=== PATIENT | male | born 1950 | race African-American/Black ===

== ENCOUNTER 2024-08-20 14:28 | Outpatient (AMB) | payer OTHER, SELFPAY ==
--- NOTE | 2024-08-20 15:08 | A.OFFVIS_ITS ---
Intake Visit Reasons: BPH/ elevated PSA? Intake Note: Patient is present for BPH/ELEVATED PSA Urology Medication:NONE Antibiotic Allergy:NONE Blood Thinner:NONE TODAY'S PVR: [employer] Insurance Sales Required: No Allergies No Known Allergies Allergy (Verified 08/20/24 15:09) HPI Comments Details: Ramses is a pleasant male. He is seen for the following urologic conditions - BPH with elevated PSA Followed previously with urology Prior biopsy 2018 Prior MRI no suspicious lesions Known large prostate Urinary tract infection today in office Recent surgery trans-sphenoidal pituitary adenoma removal Prescribe antibiotic Four month follow-up repeat PSA and bladder ultrasound to document prostate size Review of Systems Const Denies chills and Denies fever(s) Card Reports no additional complaints and Denies syncope Resp Denies cough GI Denies abdominal pain and Denies heartburn Reports as per HPI and Denies change in libido Neuro Denies syncope Psych Denies change in libido Endo Denies change in libido Physical Exam Const General: cooperative, healthy appearing, comfortable and no acute distress Orientation/consciousness: patient oriented x3 HEENT Face and sinus: Yes normal facial exam Mouth: moist mucous membranes Neck Neck: Yes normal visual inspection, Yes full ROM and Yes trachea midline Chest Chest palpation & inspection: normal inspection of the chest Resp Effort & Inspection: normal respiratory effort, able to speak in complete sentences and no respiratory distress GI Inspection: Yes normal to inspection Back/Spine/Pelvis Cervical Spine: normal cervical lordosis Thoracic/Lumbar Spine: thoracic and lumbar spine normal to inspection Skin General skin exam: no rashes or lesions noted Neuro General: patient oriented x3, gait normal, tone normal and moves all extremities Extrem General: Yes normal to inspection and Yes capillary refill normal Office Procedures Post Void Residual Post Residual Void Post Void Residual (PVR): 18 48117-Qtso Void Residual by ultrasound Results AMB Urinalysis, Automated UA Leukoctes 125 Mark/uL Last Edit by SMA Manjula on 08/20/24 16:27 UA Nitrite Last Edit by SMA Manjula on 08/20/24 16:27 UA Urobilinogen 0.2 mg/dL Last Edit by SMA Manjula on 08/20/24 16:27 UA Protein 15 mg/dL Last Edit by SMA Manjula on 08/20/24 16:27 UA pH 6.0 Last Edit by SMA Manjula on 08/20/24 16:27 UA Blood 10 Tra/uL Last Edit by SMA Manjula on 08/20/24 16:27 UA Specific [place] 1.015 Last Edit by SMA Manjula on 08/20/24 16:27 UA Ketone Last Edit by SMA Manjula on 08/20/24 16:27 UA Bilirubin 0 mg/dL Last Edit by SMA Manjula on 08/20/24 16:27 UA Glucose 0 mg/dL Last Edit by SMA Manjula on 08/20/24 16:27 Results Reviewed Results Reviewed: Laboratory Last Values Urine pH (Auto) 6.0 08/20/24 16:25 Specific [place] (Auto) 1.015 08/20/24 16:25 Urine Protein (Auto) 15 mg/dL 08/20/24 16:25 Glucose (UA)(Auto) 0 mg/dL 08/20/24 16:25 Urine Blood (Auto) 10 Tra/uL 08/20/24 16:25 Urine Bilirubin (Auto) 0 mg/dL 08/20/24 16:25 Urine Urobilinogen (Auto) 0.2 mg/dL 08/20/24 16:25 Leukocyte Esterase (Auto) 125 Mark/uL 08/20/24 16:25 Assessment & Plan Assessment & Plan (1) Complicated urinary tract infection: Code(s): N39.0 - Urinary tract infection, site not specified Category: Medical (2) Elevated PSA: Code(s): R97.20 - Elevated prostate specific antigen [PSA] Category: Medical Plan Five days Bactrim Four month follow-up repeat PSA and bladder ultrasound Orders: Orders AMB Urinalysis Automated Today Z13.9 - Encounter for screening, unspecified Medications: New sulfamethoxazole-trimethoprim 800-160 mg (Bactrim DS) 1 tab PO BID 10 tabs 0RF 5 days N39.0 - Urinary tract infection, site not specified Patient Instructions: This note is constructed using voice recognition software. While every effort has been made to ensure accuracy metallurgical laboratory assistant errors may have been included. Imaging studies, laboratory and physical exam results were discussed and re viewed in detail. No major barriers to patient understanding were identified. An opportunity to ask questions regarding the treatment plan was provided. All questions were answered. The patient expressed understanding and agreement with the above treatment plan. The patient is aware they should contact our office by phone for worsening of their current condition or the appearance of new urologic symptoms. Compliance is encouraged with any medications and followup testing that is ordered. It is a privilege to participate in the urologic care of your patient. If you have any questions or concerns regarding treatment for the above conditions, or other urologic issues, please do not hesitate to contact me. The office telephone contact is [phone]. Sincerely, Dr Andres Farfan MD, [facility] - Urology Compassionate Specialist Care for the Genitourinary System Coding Level of Care Code New Pt Level 4 (87539) Diagnoses Complicated urinary tract infection N39.0 Elevated PSA R97.20 CPT Codes Post Residual Void - PVR CPT Code: 77291-Bqvr Void Residual by ultrasound ([id number])
== END 2024-08-20 15:44 | disposition home or self-care (01) ==
LOC: HO.HUSH 14:29
PROVIDERS: Visit Provider Urology
DX: N39.0 Urinary tract infection, site not specified (principal); R97.20 Elevated prostate specific antigen [PSA]; Z13.9 Encounter for screening, unspecified
CPT/HCPCS: 99204

== ENCOUNTER → 2024-08-20 14:28 | Outpatient (BNVA) | payer MEDICARE, OTHER, SELFPAY | PROVIDERS: Visit Provider Urology | DX: N40.0 Benign prostatic hyperplasia without lower urinary tract symptoms (principal); R97.20 Elevated prostate specific antigen [PSA]; N39.0 Urinary tract infection, site not specified | CPT/HCPCS: 51798; 81003 ==

== ENCOUNTER 2024-12-17 10:26 | Outpatient (REF) | payer MEDICARE, OTHER, SELFPAY ==
--- OUTSIDE RECORDS SUMMARY | 2024-12-15 14:17 | XMS_ITS | Encounter Summary ---
Author Organization [facility] Address [address] [place] [address] Care Team Providers Care Oil Heater Installer Name Role Phone Physician, No Pcp Primary Care Provider Unavaila ble Reason for Referral * Imaging (Routine) - Authorized Specialty Diagnoses / Procedures Referred By Coleen t Referred To Contact Radiology Diagnoses Elevated alkaline phosphatase level Procedures US Abdomen Limited Sara Montes De Oca PA [address] [place] [address] Phone: tel: fax: [address] [address] Phone: tel: Referral ID Status Reason Start Date Expiration Date V isits Requested Visits Authorized [id number] Authorized 11/28/2024 11/28/2025 1 1 Reason for Visit * Imaging (Routine) - Authorized Specialty Diagnoses / Procedures Referred By Contac t Referred To Contact Radiology Diagnoses Elevated alkaline phosphatase level Procedures US Abdomen Limited Sara Montes De Oca PA [address] [place] [address] Phone: tel: fax: [address] [address] Phone: tel: Referral ID Status Reason Start Date Expiration Date V isits Requested Visits Authorized [id number] Authorized 11/28/2024 11/28/2025 1 1 Encounter Details Date Type Department Care Team (Latest Contact Info) Description 12/15/2024 2:17 PM EDT - 12/15/2024 11:59 PM EDT Hospital Encounter [facility] Ultrasound [address] [place] [address] Elevated alkaline phosphatase level Discharge Disposition: Home or Self Care Social History Tobacco Use Types Packs/Day Years Used Date Smoking Tobacco: Never Smokeless Tobacco: Never Alcohol Use Standard Drinks/Week Comments Yes 0 (1 standard drink = 0.6 oz pur e alcohol) OCCASIONAL Housing Instability Answer Date Recorde d Are you worried that in the next 2 months you may not have stable housing? No 04/29/2024 Food Access & Nutrition Answer Date Rec orded Do you have access to a vari ety of food including fruits and vegetables? Yes 04/29/2024 Access to Healthcare Answer Date Record ed Within the last 3 months, shikha bajwa many times did you visit the emergency department for your medical care? 0 04/29/2024 Health Literacy Answer Date Recorded How often do you need to hav e someone help you when you read instructions, pamphlets, or other written material from your doctor or pharmacy? Never 04/29/2024 Caregiver: How often do you need to have someone help you when you read instructions, pamphlets, or other written material from your doctor or pharmacy? Not on file 04/29/2024 Financial Risk Answer Date Recorded How hard is it for you to pa y for the very basics like food, housing, medical care, and air conditioning / heating? Not very hard 04/29/2024 Transportation Answer Date Recorded Has the lack of transportati on kept you from meetings, work, or from getting things needed for daily living? No Has the lack of transportati on kept you from medical appointments or from getting medications? No 04/29/2024 Social Isolation Answer Date Recorded How often do you feel lonely or isolated from th ose around you? Never 04/29/2024 Food Risk Answer Date Recorded Within the past 12 months we worried whether our food would run out before we got money to buy more. Never true 04/29/2024 Within the past 12 months th e food we bought just didn't last and we didn't have money to get more. Never true 04/29/2024 Dependent Care Answer Date Recorded Do you need help finding or paying for care for your loved ones. For example, early childhood education coordinator or elderly care for an older adult? No 04/29/2024 Education Answer Date Recorded Do you think completing more education or training, like finishing a GED, going to college, or learning a trade, would be helpful for you? No 04/29/2024 Employment and Income Answer Date Recor ded During the last four weeks, have you been actively looking for work? No 04/29/2024 Living Situation Answer Date Recorded What is your living situation? Unrecognized valu e 04/29/2024 Interpersonal Safety Answer Date Record ed Physical Abuse Unrecognized value 08/05/2024 Verbal Abuse Unrecognized value 08/05/2024 Sex and Gender Information Value Date Recorded Sex Assigned at Male 04/30/2024 6:15 AM EST Legal Sex Male 10:04 AM EST Gender Identity Male 04/30/2024 6:15 AM EST Sexual Orientation Straight 04/30/2024 6: 15 AM EST documented as of this encounter Functional Status * Are you deaf or do you have serious difficulty hearing? Answer Date of Assessment Author No 04/29/2024 12:18 PM Osiel Kraft RN * Are you blind or do you have serious difficulty seeing, even when wearing glasses? Answer Date of Assessment Author No 04/29/2024 12:18 PM Osiel Kraft RN * Do you have serious difficulty walking or climbing stairs? Answer Date of Assessment Author No 04/29/2024 12:18 PM Osiel Kraft RN * Do you have serious difficulty dressing or bathing? Answer Date of Assessment Author No 04/29/2024 12:18 PM Osiel Kraft RN * Because of a physical, mental, or emotional condition, do you have serious difficulty doing errandsalone such as visiting the doctor? Answer Date of Assessment Author No 04/29/2024 12:18 PM Osiel Kraft RN documented as of this encounter Mental Status * Because of a physical, mental, or emotional condition, do you have serious difficulty concentrating, remembering, or making decisions? (5 years old or older) Answer Entry Date Author No 04/29/2024 12:18 PM Osiel Kraft RN documented in this encounter Medications at Time of Discharge amLODIPine (NORVASC) 10 mg tablet Take 1 tablet (10 mg total) by mouth 1 (one) time each day. 90 tablet 1 07/08/2024 atorvastatin (LIPITOR) 40 mg tablet Take 1 tablet (40 mg total) by mouth 1 (one) time each day. 90 tablet 1 06/12/2024 levETIRAcetam (KEPPRA) 500 mg tablet Take 1 tablet (500 mg total) by mouth 2 (two) times a day. 60 each 2 06/12/2024 multivitamin tablet Take 1 tablet by mouth 1 (one) time each day. oxyCODONE (ROXICODONE) 5 mg immediate release tablet Take 1 tablet (5 mg total) by mouth every 4 (four) hours if needed for moderate pain. Max Daily Amount: 30 mg 20 tablet 08/07/2024 senna-docusate (PERICOLACE) 8.6-50 mg per tablet Take 1 tablet by mouth at bedtime. 30 each 11 08/07/2024 08/07/2025 documented as of this encounter Discharge Disposition Disposition Code Departure Means Destination Home or Self Care documented in this encounter Plan of Treatment Upcoming Encounters Date Type Department Care Team (Late st Contact Info) Description 12/22/2024 2:15 PM EDT Office Visit [facility] Hematology Oncology [address] [place] [id number] Charito Monzon PA [address] [place] [address] Pending Results Name Type Priority Associated Diagnoses Date /Time US Abdomen Limited Imaging Routine Elevated alkaline phosphatase level 12/15/2024 2:51 PM EDT Scheduled Orders Name Type Priority Associated Diagnoses Orde r Schedule US Abdomen Limited Imaging Routine Elevated alkaline phosphatase level Once for 1 Occurrences starting 12/15/2024 until 12/15/2024 documented as of this encounter Visit Diagnoses Diagnosis Elevated alkaline phosphatase level documented in this encounter Care Teams Oil Heater Installer Relationship Specialty Start Date End Date Physician, No Pcp PCP - General 12/11/24 documented as of this encounter
--- NOTE | ~2024-12-17 | US_ITS ---
CLINICAL HISTORY: R97.20 - Elevated prostate specific antigen [PSA] Exam: Male pelvic ultrasound Comparison: None Findings: Urinary bladder is underdistended, diffuse bladder wall thickening, no calculus or focal lesion, prevoid bladder volume 142 mL, postvoid residual volume 92 mL, left ureteral jet is seen, right ureteral jet is not visualized. Prostate is enlarged, measures 7.9 x 7.5 x 7.8 cm, 242 mL, heterogeneous echogenicity and echotexture, 2 hypoechoic solid appearing masses including 1.4 x 0.9 x 1.2 cm in the left anterior midgland, 1.7 x 1.8 x 1.5 cm in the right posterior base to midgland junction, no apparent intralesional vascular flow. Impression: 1. Marked prostatomegaly, 2 solid masses are indeterminate, malignancy needs to be excluded, recommend clinical correlation and urology follow-up, prostate MRI can be helpful for further evaluation. 2. Incomplete bladder emptying with large postvoid residual volume. This document has been electronically signed by: Sanjana Landin MD on 12/17/2024 14:45:44
--- OUTSIDE RECORDS SUMMARY | 2024-12-17 12:01 | XMS_ITS | Clinical Summary ---
Author Organization [facility] Address [address] [place] [address] Phone Care Team Providers Care Receiving Tank Operator Name Role Phone Luis Monzon MD Primary Care Provider Unav ailable Social History Tobacco Use Types Packs/Day Years Used Date Smoking Tobacco: Never Assessed Education Answer Date Recorded Are you interested in more education? Not on lizzy e 08/13/2024 Are you concerned about learning? Not on file 08/13/2024 No 08/13/2024 No 08/13/2024 Digital Access Answer Date Recorded No 08/13/2024 No 08/13/2024 Reliable internet access at home? Not on file 08/13/2024 Device with a working camera? Not on file Sex and Gender Information Value Date Recorded Sex Assigned at Not on file Legal Sex Male 6:20 PM EST Gender Identity Not on file Sexual Orientation Not on file Plan of Treatment Not on file Medical Devices Not on file Insurance [employer] EN[employer]ANCE SUPPLEMENT MEDICARE PART A & B [employer] SUPPLEMENT MEDICARE PART A & B [facility] MEDICARE ENHANCE SUPPLEMENT MEDICARE PART A & B [facility] MEDICARE ENHANCE SUPPLEMENT MEDICARE PART A & B Member Subscriber Plan / Payer (Ef fective 2024-Present) Name:Ramses Reed Member ID:[id number] Relation to Subscriber:Self Name:Ramses Reed Subscriber ID:[id number] Payer ID:[id number] Group ID:Not on file Type:Medicare Address: [facility] [employer] [facility] [address] [place] [address] [facility] MEDICARE ENHANCE SUPPLEMENT MEDICARE PART A & B [facility] MEDICARE ENHANCE SUPPLEMENT MEDICARE PART A & B [employer] ENHANCE SUPPLEMENT MEDICARE PART A & B [facility] MEDICARE ENHANCE SUPPLEMENT MEDICARE PART A & B [facility] MEDICARE ENHANCE SUPPLEMENT MEDICARE PART A & B Care Teams Receiving Tank Operator Relationship Specialty Start Date End Date Luis Monzon MD PCP - General 09/16/13 Additional Source Comments The information contained in this document represents components of the legal health record. It is not the complete legal health record.[facility]
--- OUTSIDE RECORDS SUMMARY | 2024-12-17 12:01 | XMS_ITS | Clinical Summary ---
Author Organization [facility] Address [address] [place] [address] Phone Care Team Providers Care Food Stand Manager Name Role Phone Physician, No Pcp Primary Care Provider Unavaila ble Allergies No known active allergies Medications levETIRAcetam (KEPPRA) 500 mg tablet Take 1 tablet (500 mg total) by mouth 2 (two) times a day. 60 each 2 5 Active Additional Information Patient not taking.Reported on 12/08/2024 atorvastatin (LIPITOR) 40 mg tablet Take 1 tablet (40 mg total) by mouth 1 (one) time each day. 90 tablet 1 5 Active Additional Information Patient not taking.Reported on 12/08/2024 multivitamin tablet Take 1 tablet by mouth 1 (one) time each day. Active amLODIPine (NORVASC) 10 mg tablet Take 1 tablet (10 mg total) by mouth 1 (one) time each day. 90 tablet 1 Active oxyCODONE (ROXICODONE) 5 mg immediate release tablet Take 1 tablet (5 mg total) by mouth every 4 (four) hours if needed for moderate pain. Max Daily Amount: 30 mg 20 tablet Active Additional Information Patient not taking.Reported on 12/08/2024 senna-docusate (PERICOLACE) 8.6-50 mg per tablet Take 1 tablet by mouth at bedtime. 30 each 11 5 08/08/19 26 Active Additional Information Patient not taking.Reported on 12/08/2024 Active Problems Problem Noted Date Diagnosed Date Chronic rhinitis 09/04/2024 Pituitary adenoma ([facility] V24, [facility] V28) Assessment & Plan (08/15/2024 4:27 PM EDT): Mr. Lr is close to 2 weeks status post transsphenoidal debulking of a pituitary tumor. He denies any visual changes, dizziness, or headaches. His postoperative MRI did show some residual tumor. Since he is not symptomatic we will not consider repeat surgery at this time. Dr. Overton said that it is likely that the tumor will continue to shrink postoperatively. We will schedule him for an MRI of the brain with and without contrast sella protocol in approximately 6 months. Knows to call in the meantime if he is having any issues. Deviated nasal septum 07/01/2024 Pituitary macroadenoma with extrasellar extension ([facility] V24, [facility] V28) 05/02/2024 Assessment & Plan (08/18/2024 1:55 PM EDT): He is doing well postsurgery. Followed up with neurosurgery. They are planning on repeating an MRI in 6 months time. He will continue Keppra for now and I have advised to follow-up with neurology regarding the continuation of this medication. Will refer him to endocrinology to have any hormonal imbalances postsurgery. Orders: Ambulatory referral to Endocrinology; Future Assessment & Plan (07/14/2024 12:29 PM EDT): Scheduled undergo surgery in 08/05/2024. He is cleared from surgical point of view. Currently has not had any syncope or seizures. Assessment & Plan (06/30/2024 2:26 PM EDT): During recent hospitalization patient was found to have a pituitary macroadenoma. He is planned to have surgery on this on August 05. Denies any cardiac symptoms and does not require any cardiac testing. Patient's cardiac problems are optimized on current medical therapy. Patient's activity level represents greater than 4 METS. Patient does not require any further testing at this time. Using the [facility] cardiac risk assessment patient is at a 0.3% risk for perioperative myocardial infarction or cardiac arrest. Patient is at acceptable risk for the proposed surgical procedure. Assessment & Plan (05/15/2024 1:52 PM EST): Patient followed up with neurosurgery and will be scheduled to undergo transsphenoidal resection. I have referred the patient to cardiology for his bradycardia and orthostatic hypotension of the hospital. Heart rate and blood pressure stable today. Continue Keppra 5 mg twice a day. Orders: Ambulatory referral to Cardiology; Future Assessment & Plan (05/08/2024 3:45 PM EST): I reviewed the imaging with the patient and his explaining the extent of the tumor and the intention to proceed with resection via transsphenoidal approach. We discussed the details, risks, benefits and anticipated postoperative course which will include staying in the ICU to monitor for endocrine dysfunction. We further discussed the possibility of radiation treatment for any residual as it does appear to just invade the wall of the left cavernous sinus. We would monitor that with annual MRIs looking for growth. He is scheduled to have a formal visual field test at ophthalmology tomorrow and we will coordinate with Dr. Gillette of ENT to find a surgery date. Laceration of eyebrow and forehead 05/02/2024 Assessment & Plan (05/08/2024 3:39 PM EST): The thin laceration through his right eyebrow appears well-healed. 2 stitches were removed without difficulty. Influenza A 05/02/2024 Assessment & Plan (05/15/2024 1:52 PM EST): Recovering. Guaifenesin with codeine provided to help him with his cough. Visual field contraction, bilateral 05/02/2024 Syncope 04/29/2024 Assessment & Plan (06/30/2024 2:26 PM EDT): Patient had an episode of syncope in the setting of URI, influenza and urinary tract infection. He was found to have orthostatic hypotension. He was treated in the hospital with IV fluids. Patient denies any further issues with syncope. He does not present with any evidence of orthostasis. He does not require any ongoing cardiac workup. EKG is stable. Benign prostatic hyperplasia without lower urinary tract symptoms 03/19/2024 Hyperlipidemia, unspecified 03/19/2024 Essential (primary) hypertension 03/19/2024 HTN (hypertension) 10/01/2018 Assessment & Plan (08/18/2024 1:55 PM EDT): He will continue his current regimen of amlodipine 10 mg daily for blood pressure under control. Assessment & Plan (07/14/2024 12:29 PM EDT): Blood pressure stable. Follow sodium diet. Continue encouragement of amlodipine. Hyperlipidemia 01/11/2011 Assessment & Plan (08/18/2024 1:55 PM EDT): Follow low-cholesterol diet. Continue atorvastatin. Will monitor LFTs and lipid panel. Orders: Comprehensive metabolic panel; Future Lipid panel with reflex to direct LDL; Future Assessment & Plan (07/14/2024 12:29 PM EDT): Patient follow low-cholesterol diet. Continue comanagement of atorvastatin. Benign prostatic hyperplasia 03/10/2008 Overview (05/15/2024): Urology (06/13/17): his right scrotal symptoms resolution, it most likely orchitis. Repeat scrotal US. With prostate MRI showing significant enlarged prostate and rising PSA, would repeat prostate biopsy. Seen by Dr Maldonado Urology (05/31/17): persistent orchitis, bactrim ds prescribed for 2 weeks. For elev PSA, pelvic MRI discussed. Recommend repeat prostate bx , so far negativve biopsies in the past. Mcnally; elevated PSA; biopsied multiple times negative Assessment & Plan (05/15/2024 1:52 PM EST): Referral to urology placed for his BPH. Orders: Ambulatory referral to Urology; Future Encounters Date Type Department Care Team Description 12/15/2024 2:17 PM EDT - 12/15/2024 11:59 PM EDT Hospital Encounter [facility] Ultrasound [address] [place] [address] Elevated alkaline phosphatase level Discharge Disposition: Home or Self Care 12/08/2024 1:45 PM EDT Lab Draw Station - [facility] [address] [phone] Encounter for screening for other viral diseases; Anemia, unspecified type 12/08/2024 1:00 PM EDT Office Visit [facility] Hematology Oncology [address] [place] [phone] Charito Monzon PA Anemia, unspecified type (Primary Dx); Elevated liver enzymes; Benign prostatic hyperplasia, unspecified whether lower urinary tract symptoms present 12/04/2024 Telephone Gastroenterology - [address] [place] [phone] Melissa Alcaraz [place] 11/28/2024 10:35 AM EDT Lab Draw Station - [address] [place] [phone] Elevated alkaline phosphatase level; Encounter for screening for other viral diseases; Contact with and (suspected) exposure to viral hepatitis 11/28/2024 9:40 AM EDT Consult Gastroenterology - [address] [place] [phone] Sara Montes De Oca PA Elevated alkaline phosphatase level; Encounter for screening for other viral diseases; Contact with and (suspected) exposure to viral hepatitis from Last 3 Months Immunizations Immunization Administration Dates Next Due Cholera Vaccine, Unspecified Formulation 05/01/1990 Hepatitis A Adult (Havrix; V aqta) 19yo and older 06/29/2010,10/26/2009 IPV Inactivated polio (Ipol) 6wks and older 10/26/2009 Influenza trivalent, 0.5mL ( Fluzone High-dose) 65yo and older 12/01/2022,01/07/2019,02/01/2018,12/28 Influenza trivalent, with pr eservative (Fluzone; Afluria) 6mo and older 02/03/2016,12/18/2014,12/28/2011,12/27,04/01/2010,03/10/2008 Influenza, Unspecified 12/29/2020 Meningococcal Polysaccharide 06/09/1997 Pfizer SARS-CoV-2 COVID-19, mRNA, LNP-S, preservative free 04/06/2021,07/06/2020 Pneumococcal conjugate 13 va lent (Prevnar 13, PCV13) 2mo and older 09/05/2021 Pneumococcal conjugate 20 va lent (Prevnar 20, PCV 20) 2mo and older 09/22/2022 Tdap Tetanus diptheria acell ular pertussis (Boostrix; Adacel) 7yo and older 11/13/2013,01/11/2011 Typhoid VICPS (Typhim Vi) 2y o and older 11/13/2013,10/30/2011,10/26/2009 Yellow Fever (YF-VAX) 9mo and older 10/26/2009,0 06/09/1997 Surgical History Surgery Date Site/Laterality Comments OTHER SURGICAL HISTORY 03/03/08 PROCEDURE: CAT SCAN OF HEAD/BRAIN NO CONTRAST; COMMENT: [facility]; neg COLONOSCOPY 02/23/2011 PROCEDURE: [place] COLONOSCOPY FLX DX W/COLLJ SPEC WHEN PFRMD; COMMENT: negative but suboptimal SHOULDER SURGERY 2004 PROCEDURE: HISTORICAL SHOULDER SURGERY; COMMENT: dislocation Left shoulder ROTATOR CUFF REPAIR Bilateral APPENDECTOMY COLONOSCOPY 03/19/2021 - 03/18/2022 Dr. Boggs, 10-year recall PITUITARY EXCISION 08/05/2024 Medical History Medical History Date Comments Syncope and collapse 03/10/2008 DX:Syncope and collapse BPH (benign prostatic hypertrophy) 03/10/2008 DX:BPH (benign prostatic hypertrophy); COMMENT: [place]; elevated PSA; biopsied multiple times negative Other and unspecified hyperlipidemia 01/11/2011 DX:Other and unspecified hyperlipidemia HTN (hypertension) 10/01/2018 DX:HTN (hyper tension) Family History Medical History Relation Name Comments Asthma Brother Other: neg Other Colon cancer Neg Hx Relation Name Status Comments Brother Other Social History Tobacco Use Types Packs/Day Years Used Date Smoking Tobacco: Never Smokeless Tobacco: Never Tobacco Cessation:Counseling Given: Not Answered Alcohol Use Standard Drinks/Week Comments Yes 0 [...] Record ed Within the last 3 months, ho w many times did you visit the emergency [...] care for your loved ones. For example, child care nurse or elderly care for an older adult? [...] Orientation Straight 04/30/2024 6: 15 AM EST Obstetrics History Last Filed Vital Signs Vital Sign Reading Time Taken Comments Blood Pressure 137/67 12/08/2024 12:45 PM EDT Pulse 56 12/08/2024 12:45 PM EDT Temperature 36.4 C (97.6 F) 12/08/2024 12:45 PM EDT Respiratory Rate 15 08/07/2024 9:00 AM EDT Oxygen Saturation 100% 12/08/2024 12:45 PM EDT Inhaled Oxygen Concentration - - Weight 77.8 kg (171 lb 9.6 oz) 12/08/2024 12:45 PM EDT Height 177.8 cm (5' 10 ) 12/08/2024 12:45 PM EDT Body Mass Index 24.62 12/08/2024 12:45 PM EDT Plan of Treatment Upcoming Encounters Date Type Department Care Team (Late st Contact Info) Description 12/22/2024 2:15 PM EDT Office Visit [facility] Hematology Oncology [address] [place] [phone] Charito Monzon PA [address] [place] [address] Health Maintenance Due Date Last Done Comments Colorectal Cancer Screening: Colonoscopy 1950 Zoster Vaccines (1 of 2) 11/03/2001 IPV Vaccines (2 of 3 - Adult catch-up series) 11/23/2009 10/26/2009 Medicare Annual Wellness Visit 02/14/2022 DTaP,Tdap,and Td Vaccines (3 - Td or Tdap) 11/14/2023 11/13/2013, 01/11/2011 Depression Screening 03/19/2024 COVID-19 Vaccine ( season) 2024 04/06/2021, 07/06/2020, 06/09/2020 Influenza Vaccine (#1) 2024 , 12/29/2020, 01/07/2019, Additional history exists Social Influencers of Health Screening 04/29/2025 04/29/2024 Falls Risk Assessment 08/07/2025 08/07/2024 Hypertension/CHF/CAD Annual BMP Blood Test 12/08/2025 12/08/2024, 09/29/2024, 08/07/2024, Additional history exists RSV Immunization Adult Patients (1 - 1-dose 75+ series) 11/03/2026 Cholesterol Screening (Lipid Panel) 09/29/2029 09/29/2024, 09/22/2022 Meningococcal ACWY Vaccine Aged Out 06/09/1997 N o longer eligible based on patient's age to complete this topic Hepatitis A Vaccines Aged Out 06/29/2010, 10/27/19 10 No longer eligible based on patient's age to complete this topic Pneumococcal Vaccine: 50+ Years Completed 09/22/2022, 09/05/2021 Hepatitis C Screening Completed 11/28/2024, 018 HIB Vaccines Aged Out No longer eligi ble based on patient's age to complete this topic HPV Vaccines Aged Out No longer eligi ble based on patient's age to complete this topic Hepatitis B Vaccines Aged Out No long er eligible based on patient's age to complete this topic MMR Vaccines Aged Out No longer eligi ble based on patient's age to complete this topic Meningococcal B Vaccine Aged Out No l onger eligible based on patient's age to complete this topic RSV Immunization Patients Under 20 months Aged Out No longer eligible based on patient's age to complete this topic Varicella Vaccines Aged Out No longer eligible based on patient's age to complete this topic Medical Devices Implanted Type Area Maternity Nurse Device Identifier Shelf Expiration Date Model / Serial / Lot Kit Surgiflo W 2000 Units Ster Lyo - Sna - [id number] Implanted:Qty: 1 on 08/05/2024 by Mady Overton MD at [facility] Hemostasis N/A: Nose [employer] [id number] 12/16/2025 2994 / NA / [id number] Kit Surgiflo W 2000 Units Ster Lyo - Sna - [id number] Implanted:Qty: 1 on 08/05/2024 by Mady Overton MD at [facility] Hemostasis N/A: Nose [employer]AC[employer] [id number] 12/16/2025 2994 / NA / [id number] Duraseal Exact Spine Sealant 5ml W Applicator - Sna - [id number] Implanted:Qty: 1 on 08/05/2024 by Mady Overton MD at [facility] Hemostasis N/A: Nose [employer] 02/15/2025 [id number] / [id number] / [id number] Procedures Procedure Name Priority Date/Time Associated Diagnosis Comments WI PROTEIN ELECTROPHORETIC FRACTIONATION & QUANTITATION SERUM Routine 12/08/2024 1:41 PM EDT Anemia, unspecified type PROTEIN, TOTAL Routine 12/08/2024 1:41 PM EDT Anemia, unspecified type CBC WITH AUTO DIFFERENTIAL Routine 12/08/2024 1:41 PM EDT Anemia, unspecified type THYROID STIMULATING HORMONE WITH REFLEX TO FREE T4 AND FREE T3 Routine 12/08/2024 1:41 PM EDT Anemia, unspecified type RETICULOCYTE COUNT Routine 12/08/2024 1: 41 PM EDT Anemia, unspecified type PROTEIN ELECTROPHORESIS, SERUM Routine 12/08/2024 1:41 PM EDT Anemia, unspecified type LACTATE DEHYDROGENASE Routine 12/08/2024 1:41 PM EDT Anemia, unspecified type KAPPA-LAMBDA QUANTITATIVE FREE LIGHT CHAINS Routine 12/08/2024 1:41 PM EDT Anemia, unspecified type HAPTOGLOBIN Routine 12/08/2024 1:41 PM EDT Anemia, unspecified type ERYTHROPOIETIN Routine 12/08/2024 1:41 PM EDT Anemia, unspecified type CBC AND DIFFERENTIAL Routine 12/08/2024 1:41 PM EDT Anemia, unspecified type COMPREHENSIVE METABOLIC PANEL Routine 12/08/2024 1:41 PM EDT Anemia, unspecified type HEPATITIS B VIRUS PCR QUANTITATIVE Routine 12/08/2024 1:41 PM EDT Encounter for screening for other viral diseases HEPATITIS A ANTIBODY IGM Routine 025 10:42 AM EDT Elevated alkaline phosphatase level AST, ALT, BILIRUBIN ELR STATE REPORTABLES Routine 11/28/2024 10:42 AM EDT Elevated alkaline phosphatase level Encounter for screening for other viral diseases Contact with and (suspected) exposure to viral hepatitis ANTIMITOCHONDRIAL ANTIBODY Routine 11/28/2024 10:42 AM EDT Elevated alkaline phosphatase level HEPATITIS A ANTIBODY TOTAL WITH REFLEX IGM Routine 11/28/2024 10:42 AM EDT Elevated alkaline phosphatase level HEPATITIS C VIRUS QUANTITATIVE PCR Routine 11/28/2024 10:42 AM EDT Elevated alkaline phosphatase level HEPATITIS B SCREENING PANEL Routine 11/28/2024 10:42 AM EDT Elevated alkaline phosphatase level Encounter for screening for other viral diseases Contact with and (suspected) exposure to viral hepatitis GAMMA GLUTAMYL TRANSFERASE Routine 11/28/2024 10:42 AM EDT Elevated alkaline phosphatase level HEPATIC FUNCTION PANEL Routine 5 10:42 AM EDT Elevated alkaline phosphatase level CBC WITH AUTO DIFFERENTIAL Routine 09/29/2024 9:51 AM EDT Anemia, unspecified type CBC AND DIFFERENTIAL Routine 09/29/2024 9:51 AM EDT Anemia, unspecified type VITAMIN B12 AND FOLATE Routine 5 9:51 AM EDT Anemia, unspecified type IRON AND TIBC Routine 09/29/2024 9:51 AM EDT Anemia, unspecified type FERRITIN Routine 09/29/2024 9:51 AM EDT Anemia, unspecified type COMPREHENSIVE METABOLIC PANEL Routine 09/29/2024 9:51 AM EDT Hyperlipidemia, unspecified hyperlipidemia type LIPID PANEL WITH REFLEX TO DIRECT LDL Routine 09/29/2024 9:51 AM EDT Hyperlipidemia, unspecified hyperlipidemia type from Last 3 Months Results * PATHOLOGIST REVIEW PROTEIN ELECTROPHORESIS (12/08/2024 1:41 PM EDT) Pathologist Interpretation Reviewed by Mellisa Otero MD 12/11/2024 1:30 PM EDT [facility] Blood Venous blood specimen / Unknown Venipuncture / Unknown 12/08/2024 1:41 PM EDT 12/08/2024 4:31 PM EDT Charito CHAIDEZ LAB BLOOD ORDERABLES Final Re sult [facility] [address] [place] [address], * Thyroid stimulating hormone with reflex to free t4 and free t3 (12/08/2024 1:41 PM EDT) TSH 1.85 0.40 - 4.00 mcIU/mL LAB CHEMISTRY METHOD 12/08/2024 5:28 PM EDT [facility] Blood Venous blood specimen / Unknown Venipuncture / Unknown 12/08/2024 1:41 PM EDT 12/08/2024 4:31 PM EDT Charito CHAIDEZ LAB BLOOD ORDERABLES Final Re sult [facility] [address] [place] [address], * (ABNORMAL) Clemons-lambda free light chains, quantitative (12/08/2024 1:41 PM EDT) Clemons Free Light Chain 3.06(H) 0.33 - 1.94 mg/dL 12/11/2024 10:34 AM EDT [facility] Lambda Free Light Chain 1.43 0.57 - 2.63 mg/dL 12/11/2024 10:34 AM EDT [facility] Clemons/Lambda FLC Ratio 2.14(H) 0.26 - 1.65 12/11/2024 10:34 AM EDT [facility] Comment: Test performed at [facility], [address] , [place] [address] Annalise Dill MD, PhD - Risk Advisor Blood Venous blood specimen / Unknown Venipuncture / Unknown 12/08/2024 1:41 PM EDT 12/08/2024 4:31 PM EDT Charito CHAIDEZ LAB BLOOD ORDERABLES Final Re sult [facility] [address] [place] [address] * Hepatitis B virus molecular study quantitative (12/08/2024 1:41 PM EDT) Hepatitis B Virus DNA Qualitative Not detected Not detected 12/11/2024 11:13 AM EDT [facility] Hepatitis B Virus DNA, Quantitative <10 <10 IU/mL 12/11/2024 11:13 AM EDT [facility] Log Hepatitis B Virus DNA <1.00 <1.00 Log (10) IU/mL 12/11/2024 11:13 AM EDT [facility] Comment: This procedure utilizes a real-time polymerase chain reaction test from [employer]. The amplification target is a conserved region in the terminal third of the hepatitis B surface antigen gene. The lower limit of quantitation is 10 IU/mL (1.00 Log IU/mL) and the uppper limit of quantitation is 1 billion IU/mL (9.00 Log IU/mL). The qualitative limit of detection is 10 IU/mL (1.00 Log IU/mL). A Not detected result does not rule out infection. Test performed at [facility], [address] , [place] [address] Annalise Dill MD, PhD - Risk Advisor Blood Venous blood specimen / Unknown Venipuncture / Unknown 12/08/2024 1:41 PM EDT 12/08/2024 4:42 PM EDT us Sara CHAIDEZ LAB BLOOD ORDERABLES Final Resu lt [facility] [address] [place] [address] * (ABNORMAL) CBC auto differential (12/08/2024 1:41 PM EDT) Only the most recent of2 resultswithin the time period is included. WBC 5.9 4.8 - 10.8 K/mcL LAB HEMETOLOGY METHOD 12/08/2024 4:44 PM EDT [facility] RBC 4.30(L) 4.50 - 5.50 M/mcL LAB HEMETOLOGY METHOD 12/08/2024 4:44 PM EDT [facility] Hemoglobin 11.9(L) 13.5 - 17.5 g/dL LAB HEMETOLOGY METHOD 12/08/2024 4:44 PM EDT [facility] Hematocrit 36.9(L) 42.0 - 54.0 % LAB HEMETOLOGY METHOD 12/08/2024 4:44 PM EDT [facility] MCV 85.8 79.0 - 98.0 FL LAB HEMETOLOGY METHOD 12/08/2024 4:44 PM EDT [facility] MCH 27.7 27.0 - 32.0 pcg LAB HEMETOLOGY METHOD 12/08/2024 4:44 PM [facility] MCHC 32.2 32.0 - 37.0 g/dL LAB HEMETOLOGY METHOD 12/08/2024 4:44 PM [facility] RDW 13.9 11.0 - 15.0 % LAB HEMETOLOGY METHOD 12/08/2024 4:44 PM [facility] Platelets 264 130 - 400 K/mcL LAB HEMETOLOGY METHOD 12/08/2024 4:44 PM [facility] MPV 9.6 7.0 - 11.0 FL LAB HEMETOLOGY METHOD 12/08/2024 4:44 PM [facility] NRBC 0.0 <1.0 % LAB HEMETOLOGY METHOD 12/08/2024 4:44 PM [facility] NRBC Absolute 0.00 <0.10 K/mcL LAB HEMETOLOGY METHOD 12/08/2024 4:44 PM [facility] Neutrophils Relative 43.1 % LAB HEMETOLOGY METHOD 12/08/2024 4:44 PM [facility] Lymphocytes Relative 47.6 % LAB HEMETOLOGY METHOD 12/08/2024 4:44 PM [facility] Monocytes Relative 7.6 % LAB HEMETOLOGY METHOD 12/08/2024 4:44 PM [facility] Eosinophils Relative 1.0 % LAB HEMETOLOGY METHOD 12/08/2024 4:44 PM [facility] Basophils Relative 0.5 % LAB HEMETOLOGY METHOD 12/08/2024 4:44 PM [facility] Immature Granulocytes Relative 0.2 % LAB HEMETOLOGY METHOD 12/08/2024 4:44 PM [facility] Neutrophils Absolute 2.56 1.50 - 7.00 K/mcL LAB HEMETOLOGY METHOD 12/08/2024 4:44 PM EDT [facility] Lymphocytes Absolute 2.82 1.00 - 5.00 K/mcL LAB HEMETOLOGY METHOD 12/08/2024 4:44 PM EDT [facility] Monocytes Absolute 0.45 0.20 - 1.00 K/mcL LAB HEMETOLOGY METHOD 12/08/2024 4:44 PM EDT [facility] Eosinophils Absolute 0.06 0.00 - 0.50 K/[facility] LAB HEMETOLOGY METHOD 12/08/2024 4:44 PM EDT [facility] Basophils Absolute 0.03 0.00 - 0.20 K/mcL LAB HEMETOLOGY METHOD 12/08/2024 4:44 PM EDT [facility] Immature Granulocytes Absolute 0.01 0.00 - 0.03 K/mcL LAB HEMETOLOGY METHOD 12/08/2024 4:44 PM EDT [facility] Blood Venous blood specimen / Unknown Venipuncture / Unknown 12/08/2024 1:41 PM EDT 12/08/2024 4:44 PM EDT Charito CHAIDEZ LAB BLOOD ORDERABLES Final Re sult [facility] [address] [place] [address], * Erythropoietin (12/08/2024 1:41 PM EDT) Erythropoietin 9.3 2.6 - 18.5 mIU/mL 12/11/2024 2:31 PM EDT [facility] Comment: Test performed at [facility], [address], [place] [address] Annalise Dill MD, PhD - Risk Advisor Blood Venous blood specimen / Unknown Venipuncture / Unknown 12/08/2024 1:41 PM EDT 12/08/2024 4:31 PM EDT us Charito CHAIDEZ LAB BLOOD ORDERABLES Final Re sult [facility] [place] [address] * (ABNORMAL) Reticulocyte count (12/08/2024 1:41 PM EDT) Retic Ct Abs 0.080 0.030 - 0.090 M/mcL LAB HEMETOLOGY METHOD 12/08/2024 4:44 PM EDT [facility] Retic Ct Pct 1.8(H) 0.7 - 1.7 % LAB HEMETOLOGY METHOD 12/08/2024 4:44 PM EDT [facility] Immature Retic Fract 13.2 2.3 - 15.9 % LAB HEMETOLOGY METHOD 12/08/2024 4:44 PM EDT [facility] Reticulocyte Hemoglobin 31.6 >29.0 pcg LAB HEMETOLOGY METHOD 12/08/2024 4:44 PM EDT [facility] Blood Venous blood specimen / Unknown Venipuncture / Unknown 12/08/2024 1:41 PM EDT 12/08/2024 4:44 PM EDT us Charito CHAIDEZ LAB BLOOD ORDERABLES Final Re sult [facility] [address] [place] [address], [place] [phone] * (ABNORMAL) Protein electrophoresis, serum (12/08/2024 1:41 PM EDT) Total Protein 8.1(H) 6.0 - 8.0 g/dL LAB CHEMISTRY METHOD 12/11/2024 1:30 PM EDT [facility] Albumin, Serum 4.0 2.9 - 4.1 g/dL LAB CHEMISTRY METHOD 12/11/2024 1:30 PM EDT [facility] Alpha 1 Globulin (g/dL) 0.2 0.1 - 0.5 g/dL LAB CHEMISTRY METHOD 12/11/2024 1:30 PM EDT [facility] Alpha 2 Globulin (g/dL) 0.9 0.7 - 1.5 g/dL LAB CHEMISTRY METHOD 12/11/2024 1:30 PM EDT [facility] Beta (g/dL) 1.2 0.7 - 1.5 g/dL LAB CHEMISTRY METHOD 12/11/2024 1:30 PM EDT [facility] Gamma Globulin (g/dL) 1.8 0.7 - 1.9 g/dL LAB CHEMISTRY METHOD 12/11/2024 1:30 PM EDT [facility] SPEP Interpretation No M-Cesar seen. Essentially normal pattern. LAB CHEMISTRY METHOD 12/11/2024 1:30 PM EDT [facility] Blood Venous blood specimen / Unknown Venipuncture / Unknown 12/08/2024 1:41 PM EDT 12/08/2024 4:31 PM EDT Charito CHAIDEZ LAB BLOOD ORDERABLES Final Re sult Performing Organization Address [facility]/ZIP Co de Phone Number [facility] [address] [place] [address], * Protein, total (12/08/2024 1:41 PM EDT) Total Protein 8.0 6.0 - 8.0 g/dL LAB CHEMISTRY METHOD 12/08/2024 4:57 PM EDT [facility] Blood Venous blood specimen / Unknown Venipuncture / Unknown 12/08/2024 1:41 PM EDT 12/08/2024 4:31 PM EDT Charito CHAIDEZ LAB BLOOD ORDERABLES Final Re sult Performing Organization Address City/State/[facility] Co de Phone Number [facility] [address] [place] [address], [place] [phone] * Lactate dehydrogenase (12/08/2024 1:41 PM EDT) Pathologist [facility] LDH 221 120 - 246 unit/L LAB CHEMISTRY METHOD 12/08/2024 5:13 PM EDT [facility] Blood Venous blood specimen / Unknown Venipuncture / Unknown 12/08/2024 1:41 PM EDT 12/08/2024 4:31 PM EDT Charito CHAIDEZ LAB BLOOD ORDERABLES Final Re sult Performing Organization Address [facility] Co de Phone Number [facility] [address] [place] [address], [place] [phone] * Haptoglobin (12/08/2024 1:41 PM EDT) [facility] Haptoglobin 82 16 - 200 mg/dL LAB CHEMISTRY METHOD 12/08/2024 5:16 PM EDT [facility] Blood Venous blood specimen / Unknown Venipuncture / Unknown 12/08/2024 1:41 PM EDT 12/08/2024 4:31 PM EDT Charito CHAIDEZ LAB BLOOD ORDERABLES Final Re sult Performing Organization Address [facility]/ZIP Co de Phone Number [facility] [address] [place] [address], [place] [phone] * (ABNORMAL) Comprehensive metabolic panel (12/08/2024 1:41 PM EDT) Only the most recent of2 resultswithin the time period is included. [facility] Sodium 140 133 - 145 mmol/L LAB CHEMISTRY METHOD 12/08/2024 5:16 PM EDT [facility] Potassium 4.5 3.5 - 5.5 mmol/L LAB CHEMISTRY METHOD 12/08/2024 5:16 PM [facility] Chloride 106 96 - 110 mmol/L LAB CHEMISTRY METHOD 12/08/2024 5:16 PM [facility] CO2 31 21 - 32 mmol/L LAB CHEMISTRY METHOD 12/08/2024 5:16 PM [facility] Anion Gap 3 3 - 11 LAB CHEMISTRY METHOD 12/08/2024 5:16 PM [facility] Glucose 97 70 - 100 mg/dL LAB CHEMISTRY METHOD 12/08/2024 5:16 PM [facility] BUN 17 5 - 25 mg/dL LAB CHEMISTRY METHOD 12/08/2024 5:16 PM [facility] Creatinine 1.16 0.70 - 1.30 mg/dL LAB CHEMISTRY METHOD 12/08/2024 5:16 PM [facility] eGFR 67 >=60 mL/min/1. 73m2 LAB CHEMISTRY METHOD 12/08/2024 5:16 PM [facility] Comment:Calculation based on the Chronic Kidney Disease Epidemiology Collaboration (CKD-EPI) equation refit without adjustment for race. BUN/Creatinine Ratio 14.7 LAB CHEMISTRY METHOD 12/08/2024 5:16 PM [facility] Calcium 9.4 8.5 - 10.5 mg/dL LAB CHEMISTRY METHOD 12/08/2024 5:16 PM [facility] AST (SGOT) 24 10 - 42 unit/L LAB CHEMISTRY METHOD 12/08/2024 5:16 PM [facility] ALT (SGPT) 25 10 - 60 unit/L LAB CHEMISTRY METHOD 12/08/2024 5:16 PM [facility] Alkaline Phosphatase 113 42 - 121 unit/L LAB CHEMISTRY METHOD 12/08/2024 5:16 PM [facility] Total Protein 8.1(H) 6.0 - 8.0 g/dL LAB CHEMISTRY METHOD 12/08/2024 5:16 PM EDT [facility] Albumin 4.2 3.2 - 5.0 g/dL LAB CHEMISTRY METHOD 12/08/2024 5:16 PM EDT [facility] Total Bilirubin 0.4 0.0 - 1.4 mg/dL LAB CHEMISTRY METHOD 12/08/2024 5:16 PM EDT [facility] Blood Venous blood specimen / Unknown Venipuncture / Unknown 12/08/2024 1:41 PM EDT 12/08/2024 4:31 PM EDT us Charito CHAIDEZ LAB BLOOD ORDERABLES Final Re sult [facility] [address] [place] [address], [place] [phone] * AST, ALT, Bilirubin ELR state reportables (11/28/2024 10:42 AM EDT) ALT (SGPT) 20 10 - 60 unit/L LAB CHEMISTRY METHOD 11/28/2024 3:55 PM EDT [facility] AST (SGOT) 19 10 - 42 unit/L LAB CHEMISTRY METHOD 11/28/2024 3:55 PM EDT [facility] Bilirubin, Direct 0.1 0.0 - 0.3 mg/dL LAB CHEMISTRY METHOD 11/28/2024 3:55 PM EDT [facility] Total Bilirubin 0.3 0.0 - 1.4 mg/dL LAB CHEMISTRY METHOD 11/28/2024 3:55 PM EDT [facility] Blood Venous blood specimen / Unknown Venipuncture / Unknown 11/28/2024 10:42 AM EDT 11/28/2024 12:43 PM EDT us Sara CHAIDEZ LAB BLOOD ORDERABLES Final Resu lt [facility] [address] [place] [address], [place] [phone] * (ABNORMAL) Hepatitis A antibody total with reflex IgM (11/28/2024 10:42 AM EDT) [facility] Hep A Total Ab Positive( A) Negative LAB CHEMISTRY METHOD 11/28/2024 3:49 PM EDT [facility] Blood Venous blood specimen / Unknown Venipuncture / Unknown 11/28/2024 10:42 AM EDT 11/28/2024 12:43 PM EDT Narrative [facility] - 11/28/2024 3:49 PM EDT Over the counter supplements containing high doses of biotin may interfere with this assay. If interference is suspected, patients shoud be retested after refraining from biotin supplements for 72 hours. Sara CHAIDEZ LAB BLOOD ORDERABLES Final Resu lt Performing Organization Address [facility] de Phone Number [facility] [address] [place] [address], [place] [phone] * (ABNORMAL) Hepatitis B screening panel (11/28/2024 10:42 AM EDT) [facility] Hepatitis B Surface Ag Negative Negative LAB CHEMISTRY METHOD 11/28/2024 3:49 PM EDT [facility] Hep B Core Total Ab Positive(A) Negative LAB CHEMISTRY METHOD 11/28/2024 3:49 PM EDT [facility] Hepatitis B Surface Ab Positive(A) Negative LAB CHEMISTRY METHOD 11/28/2024 3:49 PM EDT [facility] Blood Venous blood specimen / Unknown Venipuncture / Unknown 11/28/2024 10:42 AM EDT 11/28/2024 12:43 PM EDT Sara CHAIDEZ LAB BLOOD ORDERABLES Final Resu lt Performing Organization Address [facility]/ZIP Co de Phone Number [facility] [address] [place] [address], [place] [phone] * Hepatitis C virus quantitative molecular study (11/28/2024 10:42 AM EDT) [facility] HCV Qual Interp Not Detected Not Detected LAB MOLECULAR DIAGNOSTICS METHOD 12/02/2024 11:18 AM EDT [facility] Comment:HCV RNA not detected , unable to report quantitative results. Blood Venous blood specimen / Unknown Venipuncture / Unknown 11/28/2024 10:42 AM EDT 11/28/2024 12:43 PM EDT us Sara CHAIDEZ LAB BLOOD ORDERABLES Final Resu lt Performing Organization Address [facility] de Phone Number [facility] [address] [place] [address], [place] [phone] * Hepatitis A antibody IgM (11/28/2024 10:42 AM EDT) [facility] Hepatitis A Antibody IgM Negative Negative LAB CHEMISTRY METHOD 11/28/2024 5:40 PM EDT [facility] Blood Venous blood specimen / Unknown Venipuncture / Unknown 11/28/2024 10:42 AM EDT 11/28/2024 12:43 PM EDT Narrative [facility] - 11/28/2024 5:40 PM EDT Over the counter supplements containing high doses of biotin may interfere with this assay. If interference is suspected, patients shoud be retested after refraining from biotin supplements for 72 hours. us Sara CHAIDEZ LAB BLOOD ORDERABLES Final Resu lt Performing Organization Address [facility] Co de Phone Number [facility] [address] [place] [address], [place] [phone] * Antimitochondrial antibody (11/28/2024 10:42 AM EDT) [facility] Mitochondrial Antibody Quantitative 4.1 <=20.0 units LAB CHEMISTRY METHOD 12/03/2024 12:31 PM EDT [facility] Mitochondrial Antibody Qualitative Negative Negative LAB CHEMISTRY METHOD 12/03/2024 12:31 PM EDT [facility] Blood Venous blood specimen / Unknown Venipuncture / Unknown 11/28/2024 10:42 AM EDT 11/28/2024 12:43 PM EDT Sara [place] LAB BLOOD ORDERABLES Final Resu lt Performing Organization Address City/[facility]/ZIP Co de Phone Number [facility] [address] [place] [address], [place] [phone] * GGT (11/28/2024 10:42 AM EDT) [facility] GGT 43 7 - 64 unit/L LAB CHEMISTRY METHOD 11/28/2024 1:54 PM EDT [facility] Blood Venous blood specimen / Unknown Venipuncture / Unknown 11/28/2024 10:42 AM EDT 11/28/2024 12:43 PM EDT Sara [place]es [place] LAB BLOOD ORDERABLES Final Resu lt Performing Organization Address City/[facility]/ZIP Co de Phone Number [facility] [address] [place] [address], [place] [phone] * (ABNORMAL) Hepatic function panel (11/28/2024 10:42 AM EDT) [facility] Total Protein 9.1(H) 6.0 - 8.0 g/dL LAB CHEMISTRY METHOD 11/28/2024 2:10 PM EDT [facility] Albumin 4.6 3.2 - 5.0 g/dL LAB CHEMISTRY METHOD 11/28/2024 2:10 PM EDT [facility] Total Bilirubin 0.3 0.0 - 1.4 mg/dL LAB CHEMISTRY METHOD 11/28/2024 2:10 PM EDT [facility] Bilirubin, Direct 0.1 0.0 - 0.3 mg/dL LAB CHEMISTRY METHOD 11/28/2024 2:10 PM EDT [facility] Bilirubin, Indirect 0.2 0.0 - 1.1 mg/dL LAB CHEMISTRY METHOD 11/28/2024 2:10 PM EDT [facility] ALT (SGPT) 20 10 - 60 unit/L LAB CHEMISTRY METHOD 11/28/2024 2:10 PM EDT [facility] AST (SGOT) 19 10 - 42 unit/L LAB CHEMISTRY METHOD 11/28/2024 2:10 PM EDT [facility] Alkaline Phosphatase 125(H) 42 - 121 unit/L LAB CHEMISTRY METHOD 11/28/2024 2:10 PM EDT [facility] Blood Venous blood specimen / Unknown Venipuncture / Unknown 11/28/2024 10:42 AM EDT 11/28/2024 12:43 PM EDT us Sara CHAIDEZ LAB BLOOD ORDERABLES Final Resu lt [facility] [address] [place] [address], * Vitamin B12 and folate (09/29/2024 9:51 AM EDT) Vitamin B-12 486 250 - 900 pcg/mL LAB CHEMISTRY METHOD 09/29/2024 8:47 PM EDT [facility] Folate 10.1 2.8 - 17.0 ng/ml LAB CHEMISTRY METHOD 09/29/2024 8:47 PM EDT [facility] Blood Venous blood specimen / Unknown Venipuncture / Unknown 09/29/2024 9:51 AM EDT 09/29/2024 9:51 AM EDT us Paul Cee MD LAB BLOOD ORDERABLES Nirmala l Result [facility] [address] [place] [address], [place] [phone] * Lipid panel with reflex to direct LDL (09/29/2024 9:51 AM EDT) Cholesterol 158 0 - 200 mg/dL LAB CHEMISTRY METHOD 09/29/2024 8:47 PM EDT [facility] Triglycerides 57 0 - 150 mg/dL LAB CHEMISTRY METHOD 09/29/2024 8:47 PM EDT [facility] HDL 48 >=40 mg/dL LAB CHEMISTRY METHOD 09/29/2024 8:47 PM EDT [facility] LDL Calculated 99 0 - 100 mg/dL LAB CHEMISTRY METHOD 09/29/2024 8:47 PM EDT [facility] VLDL Cholesterol Al 11.4 mg/dL LAB CHEMISTRY METHOD 09/29/2024 8:47 PM EDT [facility] Non HDL Chol. (LDL+VLDL) 110 <145 mg/dL LAB CHEMISTRY METHOD 09/29/2024 8:47 PM EDT [facility] Chol/HDL Ratio 3.3 0.0 - 4.4 LAB CHEMISTRY METHOD 09/29/2024 8:47 PM EDT [facility] Blood Venous blood specimen / Unknown Venipuncture / Unknown 09/29/2024 9:51 AM EDT 09/29/2024 9:51 AM EDT Paul Cee MD LAB BLOOD ORDERABLES Nirmala l Result [facility] [address] [place] [address], [place] [phone] * Iron and TIBC (09/29/2024 9:51 AM EDT) Iron 72 50 - 160 mcg/dL LAB CHEMISTRY METHOD 09/29/2024 8:47 PM EDT [facility] TIBC 318 250 - 450 mcg/dL LAB CHEMISTRY METHOD 09/29/2024 8:47 PM EDT [facility] Iron Saturation 23 20 - 50 % LAB CHEMISTRY METHOD 09/29/2024 8:47 PM EDT [facility] Blood Venous blood specimen / Unknown Venipuncture / Unknown 09/29/2024 9:51 AM EDT 09/29/2024 9:51 AM EDT Paul Cee MD LAB BLOOD ORDERABLES Nirmala l Result Performing Organization Address [facility]/ZIP Co de Phone Number [facility] [address] [place] [address], [place] [phone] * Ferritin (09/29/2024 9:51 AM EDT) [facility] Ferritin 180 26 - 388 ng/mL LAB CHEMISTRY METHOD 09/29/2024 8:47 PM EDT [facility] Blood Venous blood specimen / Unknown Venipuncture / Unknown 09/29/2024 9:51 AM EDT 09/29/2024 9:51 AM EDT Paul Cee MD LAB BLOOD ORDERABLES Nirmala l Result [facility] [address] [place] [address], [place] [phone] from Last 3 Months Insurance MEDICARE [facility] Advance Directives Documents on File Type Date Recorded 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 Do not modify or discontinue any currently active code status orders. * Full Code - Default Date Activated Date Inactivated Comments 08/05/2024 6:12 AM 08/05/2024 11:57 AM This is ord er is used when code status has not been discussed with the patient, or code status is otherwise unknown/unconfirmed To update the patient's code status, place a code status order. Do not modify or discontinue any currently active code status orders. * Full Code - Default Date Activated Date Inactivated Comments 04/29/2024 4:53 PM 05/02/2024 11:37 PM This is ord er is used when code status has not been discussed with the patient, or code status is otherwise unknown/unconfirmed To update the patient's code status, place a code status order. Do not modify or discontinue any currently active code status orders. Healthcare Agents on File Name Relationship Healthcare Agent Relationship Communication Nano Stein Spouse Health Care Agent Real Kramer Son First Alternate Health Care Agent Care Teams Food Stand Manager Relationship Specialty Start Date End Date Physician, No Pcp PCP - General 12/11/24
--- OUTSIDE RECORDS SUMMARY | 2024-12-17 12:01 | XMS_ITS | Data Portability ---
Author Organization [place] [facility] Address [address] [address] Care Team Providers Care Slip Dumper Name Role Phone HENNA BRODIE Primary Care Provider Assessment Encounter Date Assessment Date Assessment LastModified by Organization Details LastModified Time 06/02/2024 06/02/2024 We reviewed that if neurosurgery felt he required surgery I would be able to assist. He might need a septoplasty for access. We reviewed the risks not limited to bleeding, infection, visual difficulties, spinal fluid leak and carotid artery injury. He also understands that he may need additional procedures or radiation. He will discuss things further with Dr. Overton before any surgical intervention mayra Not available 06/02/2024 13:49:44 08/12/2024 08/12/2024 73yo male presents following septoplasty to remove pituitary tumor on 08/05/[address] Bauer. A transphenoidal approach was used. Pathology is benign. Nelson splints removed and nasal cavities debrided. Reviewed post-operative nasal precautions including avoiding nose blowing, sneezing with mouth open, and heavy lifting greater than 15 pounds for two weeks following surgery. Patient will continue nasal saline spray 6 times daily. Follow up in 4 weeks with MD. [email or web address] Not available 08/12/2024 15:53:33 09/04/2024 09/04/2024 Septum is straight. There is residual crusting in the right sphenoid recess. Patient will be more aggressive using saline solution 5-6 times per day. He can blow his nose gently. Follow-up in 2 months. Contact me if any foul nasal discharge [email or web address] Not available 09/04/2024 15:11:48 11/07/2024 11/07/2024 - Status post nasal surgery, 08/05. The surgical site appears well-healed with no signs of infection or cerebrospinal fluid leak. The patient is advised to follow up with Dr. Overton, the neurosurgeon, for long-term management and any necessary imaging related to the pituitary. No further ENT follow-up is required unless sinus issues arise in the future. [email or web address] Not available 11/07/2024 11:03:23 Plan of Treatment Reminders Order Date Submit Date Provider Last Modified By Organization Details Last Modified Time Details Appointments None record ed. Lab None record ed. Referral None record ed. Procedures None record ed. Surgeries None record ed. Imaging None record ed. Medication Orders None record ed. Patient TargetsNo targets recorded. Patient Instructions Encounter Date Encounter Id Patient Instructions Last Modified By Organization Details Last Modified Time 11/07/[id number] Overton, the neurosurgeon, for long-term management and imaging related to the pituitary. Return to ENT if sinus issues arise in the future. [email or web address] Not available 11/07/2024 11:03:23 Please note: Parts of this encounter note have been generated by AI based on audio conversation. Patient consent was required prior to utilizing this technology. Content review was required prior to finalizing the note. [email or web address] Not available 11/07/2024 11:03:23 Reason for Referral None Reported. Results Created Date Observation Date Name Description Value Unit Range Abnormal Flag Note LastModifiedBy Organization Detail LastModifiedTime 08/06/19 25 08/05/2024 TISSU E EXAM .note See Note Origi nal Order ing Provi manuela: DILIP FORD IBSTE IN [facility] - [address], [place] [address] Not Available [facility] Dept [address] [facility], [place], [address], 08/08/2024 13:11:22 08/06/19 25 08/05/2024 TISSU E EXAM final diagnosis A. Pituit shar-tr ansphe noidal hypoph ysecto my: PITUI TARY ADENO [place] / PITUI TARY NEURO ENDOC RINE TUMOR (PitN ET) B. Bone and carti ruel, Paran kiarra sinus -carrero sphen oidal hypop hysec dale: -PARTHA GN UPPER RESPI RATOR Y MUCOS A WITH NO SPECI FIC PATHO LOGIC JONES E C.Par anasa l, sphen oid sinus -carrero sphen oidal hypop hysec dale: -BONE AND CARTI RUEL WITH NO SPECI FIC PATHO LOGIC JONES E Elect caprice rashid josh d by Ruperto dickens MD on 2024 at 1:08 PM Not Available [facility] Dept [address] [facility], [place], [address], 08/08/2024 13:11:22 08/06/19 25 08/05/2024 TISSU E EXAM comment Ki67 labeli ng index is >1%. [facility] for exper t evalu ation . See adddashawn dum. Not Available [facility] Dept [address] [place], [address], 08/08/2024 13:11:22 08/06/19 25 08/05/2024 TISSU E EXAM gross description A. Gland, Pituit shar, pituit shar tumor: Label ed pitu itary . Recei flaco in forma lashonda is a 6 g, 5.2 cm aggre gate of dark red soft to friab le tissu e fragm ents which is wrapp ed in paper and submi tted in toto in four casse ttes, multi ple piece s each. B. Sinus , Paran kiarra, septu m bone and carti ruel: Label ed sinu s, para- , septu m . Recei falco in forma lashonda are three irreg ular smith-w sharmaine fragm ents of membr anous bone and carti ruel. There is minim al possi ble smith-p ink mucos a. The speci men is secti oned, wrapp ed in paper , and entir roberto submi tted in one casse tte, follo wing decal cific ation , multi ple piece s. C. Sinus , Paran kiarra, sphen oid sinus : Label ed sinu s, para, sphen oid . Recei flaco in forma lashonda is a 1.7 x 1.1 x 0.2 cm aggre gate of irreg ular smith-p ink to red soft tissu e fragm ents admix ed with clott ed blood which is submi tted in toto wrapp ed in paper in one casse tte, multi ple piece s. ALICIA Not Available [facility] Dept [address] [place], [address], 08/08/2024 13:11:22 08/06/19 25 08/05/2024 TISSU E EXAM disclaimer NOTE: The immun ohist ochem ical tests and in situ hybri dizat ion tests were devel oped and their perfo rmanc e michaelle cteri stics were deter mined by [facility] . They have not been clear ed or appro flaco by the U.S. Food and Drug Admin istra tion. The FDA has deter mined that such clear ance or appro joaquin is not neces howie. These tests are used for clini doug purpo ses. They shoul d not be regar ded as inves tigat ional or for resea rch. This labor atory is certi fied under the Clini doug Labor atory Impro vemen t Amend ments of 1987 (CLIA ) as quali fied to perfo rm high compl exity clini doug labor atory testi ng. (cont rols appro priat e) Unles s other oscar speci fied, all tissu e is 10% NB forma lashonda fixed and paraf fin embed ded. Not Available [facility] Dept [address] [place], [address], 08/08/2024 13:11:22 08/06/19 25 08/05/2024 TISSU E EXAM .note See Note Origi nal Order ing Provi manuela: [facility] - [address], [facility] [place] [address] Not Available [facility] Dept [address] [place], [address], 08/15/2024 11:20:14 08/06/19 25 08/05/2024 TISSU E EXAM addendum Case was sent for consu ltati ve opini on to [facility], Neuro patho [place]d chicas [place]. Their diagn osis is as follo ws: FINAL PATHO LOGIC DIAGN OSIS: CONSU LT MATER IALS RECEI FLACO FROM [facility] RMARIELENA, VIRAL. PITUI TARY ([id number]; 08/05): GONAD OTROP H ADENO [place], see Note. Note: Secti ons show sheet s of atypi doug, monom orphi c cells with nucle i with granu lar chrom atin and eosin ophil ic cytop lasm admix ed with acute hemor rhage . Ki-67 proli ferat ion index is low at 0.5% (6 posit quincy nucle i out of 1266 nucle i count ed; immun ostai n perfo rmed at outsi de insti tutio n and quant ified at [facility]). Immun ohist ochem ical stain s perfo rmed at [facility] revea l that tumor cells are posit quincy for SF1 and negat quincy for PIT1 and TPIT> Elect caprice moreno d out by Deyanira willis MD, PHD Repor t Date: 08/15 (Full repor t on file) Adden dum elect caprice rashid josh d by Ruperto dickens MD on 2024 at 11:02 AM Not Available [facility] [address] [facility], [place], [address], 08/15/2024 11:20:14 08/06/19 25 08/05/2024 TISSU E EXAM final diagnosis A. Pituit shar-tr ansphe noidal hypoph ysecto my: PITUI TARY ADENO [place] / PITUI TARY NEURO ENDOC RINE TUMOR (PitN ET) B. Bone and carti ruel, Paran kiarra sinus -carrero sphen oidal hypop hysec dale: -PARTHA GN UPPER RESPI RATOR Y MUCOS A WITH NO SPECI FIC PATHO LOGIC JONES E C.Par anasa l, sphen oid sinus -carrero sphen oidal hypop hysec dale: -BONE AND CARTI RUEL WITH NO SPECI FIC PATHO LOGIC JONES E Elect caprice rashid josh d by Ruperto dickens MD on 2024 at 1:08 PM Not Available [facility] Dept [address] [place], [address], 08/15/2024 11:20:14 08/06/19 25 08/05/2024 TISSU E EXAM comment Ki67 labeli ng index is >1%. [facility] for exper jeannine reyes . See adden dum. Not Available [facility] Dept [address] [place], [address], 08/15/2024 11:20:14 08/06/19 25 08/05/2024 TISSU E EXAM gross description A. Gland, Pituit shar, pituit shar tumor: Label ed pitu itary . Recei flaco in forma lashonda is a 6 g, 5.2 cm aggre gate of dark red soft to friab le tissu e fragm ents which is wrapp ed in paper and submi tted in toto in four casse ttes, multi ple piece s each. B. Sinus , Paran kiarra, septu m bone and carti ruel: Label ed sinu s, para- , septu m . Recei flaco in forma lashonda are three irreg ular smith-w sharmaine fragm ents of membr anous bone and carti ruel. There is minim al possi ble smith-p ink mucos a. The speci men is secti oned, wrapp ed in paper , and entir roberto submi tted in one casse tte, follo wing decal cific ation , multi ple piece s. C. Sinus , Paran kiarra, sphen oid sinus : Label ed sinu s, para, sphen oid . Recei flaco in forma lashonda is a 1.7 x 1.1 x 0.2 cm aggre gate of irreg ular smith-p ink to red soft tissu e fragm ents admix ed with clott ed blood which is submi tted in toto wrapp ed in paper in one casse tte, multi ple piece s. ALICIA Not Available [facility] Dept [address] [facility], [place], [address], 08/15/2024 11:20:14 08/06/19 25 08/05/2024 TISSU E EXAM disclaimer NOTE: The immun ohist ochem ical tests and in situ hybri dizat ion tests were devel oped and their perfo rmanc e michaelle cteri stics were deter mined by [facility] . They have not been clear ed or appro flaco by the U.S. Food and Drug Admin istra tion. The FDA has deter mined that such clear ance or appro joaquin is not neces howie. These tests are used for clini doug purpo ses. They shoul d not be regar ded as inves tigat ional or for resea rch. This labor atory is certi fied under the Clini doug Labor atory Impro vemen t Amend ments of 1987 (CLIA ) as quali fied to perfo rm high compl exity clini doug labor atory testi ng. (cont rols appro priat e) Unles s other oscar speci fied, all tissu e is 10% NB forma lashonda fixed and paraf fin embed ded. Not Available [facility] Dept [address] [place], [address], 08/15/2024 11:20:14 08/06/19 25 08/05/2024 op note No observ ation record ed. [email or web address] [facility] Dept [address] [place], [address], 08/07/2024 12:08:58 Result Notes None recorded. Problems Name Problem SNOMED Code Status Onset Date Resolution Date Notes Provider Name and Address Organization Details Recorded Time Syncope 030267979 Active 2024 DILIP MOODY MD [address] [address], [place], [address], [facility] [place] 12:36:45 Pituitary macroadenoma with extrasellar extension 569235438 Active 2024 DILIP MOODY MD [address] [address], [place], [address], [facility] - [facility] [place] 5 12:36:45 Laceration of forehead 817548815 Active 2024 DILIP MOODY MD [address] [address], [place], [address], [facility] - [facility] [place] 12:36:45 Influenza caused by Influenza A virus 508841165 Active 2024 DILIP MOODY MD [address] [address], [place], [address], [facility] - [facility] [place] 5 12:36:45 Bilateral visual field constriction 32161180 Active 2024 DILIP MOODY MD [address] [facility], [address] [facility], [place], [address], [facility] - [facility] [place] 5 12:36:45 Deviated nasal septum 860493241 Active 2024 DILIP MOODY MD [address] [facility],[address], [place], [address], [place] [facility] [place] 13:49:49 Pituitary macroadenoma 068038651 Active 2024 DILIP MOODY MD [address] [facility],[address], [place], [address], [place] [facility] [place] 13:49:54 Chronic rhinitis 85317814 Active 2024 DILIP MOODY MD 100 [facility], [address], [place], [address], [place] [facility] 15:11:55 Pituitary adenoma 640106186 Active 2024 DILIP MOODY MD 100 [facility] [address], [place], [address], [place] [facility] [place] 11:05:04 Problem Notes None recorded. Procedures Surgical History Date Name Laterality Status Provider Name and Address Organization Details Recorded Time 5 JMSNasal/Sinus Endoscopy completed DILIP BAUER MD [address] [facility],[address], [address], [place] - [facility] 11/07/2024 11:04:56 5 JMSNasal/Sinus Endoscopy-DEBR IDEMENT completed DILIP BAUER MD [address] [facility],[address], [address], [place] [facility] 09/04/2024 15:11:16 5 excision of neoplasm of pituitary completed DILIP BAUER MD 100 [facility],[address], [address], [place] [facility] 11/07/2024 11:01:40 5 JMSNasal/Sinus Endoscopy completed DILIP BAUER MD [address] [facility],[address], [address], [place] [facility] 06/02/2024 13:51:44 Imaging Results None recorded. Procedure Notes None recorded. Medical Equipment None Reported. Allergies Allergen ID Allergen Name Allergen Category Reaction Reaction Severity Criticality Documentation Date Start Date Code Code System Note Provider Name and Address Organization Details Recorded Time 758761 No known allergy (situatio n) Not available Not available Not available Not available 06/16/2024 26307 6003 SNOMED DILIP MOODY MD [address] [place] [address], [address] [place] [address] - [facility] 12:36:45 No known drug allergies Medications Name Sig Start Date Stop Date Status Note LastModified by Organization Details LastModified Time atorvastatin 40 mg tablet 40 mg by oral route. active Not Available Not Available No t Available neomycin-mala itracn Zn-polymyx 3.5 mg-400 unit-5,000 unit/gram top oint 1 {applica tion} 3 times a day by topical route. 05/10 completed Not Available Not Available Not Available levetiraceta m 500 mg tablet Take 500 mg twice a day by oral route. 09/04 completed Not Available Not Available Not Available sulfamethoxa zole 800 mg-trimethop rim 160 mg tablet TAKE 1 TABLET BY MOUTH TWICE DAILY FOR 5 DAYS 09/04 completed Not Available Not Available Not Available amlodipine 10 mg tablet TAKE 1 TABLET BY MOUTH DAILY active Not Available Not Available No t Available cefdinir 300 mg capsule 06/02 completed Not Available Not Available Not Available Keppra 1,000 mg tablet Take 1 tablet every 12 hours by oral route. active Not Available Not Available No t Available oseltamivir 30 mg capsule 06/02 completed Not Available Not Available Not Available Stimulant Laxative Plus 8.6 mg-50 mg tablet TAKE 1 TABLET BY MOUTH AT BEDTIME 09/04 completed Not Available Not Available Not Available Vitals Date Recorded Body height Body mass index (BMI) Body weight Provider Name and Address Organization Details Last Updated DateTime 06/02/2024 177.8 cm 23.7 kg/m2 08329.74 g Citlaly Avina [facility] 06/02/2024 13:12:18 Date Recorded Body height Body mass index (BMI) Body weight Provider Name and Address Organization Details Last Updated DateTime 08/12/2024 177.8 cm 24.1 kg/m2 47221.52 g Jennie Mosherjosé [place] - [facility] [place] 08/12/2024 14:09:36 Date Recorded Body height Body mass index (BMI) Body weight Provider Name and Address Organization Details Last Updated DateTime 09/04/2024 177.8 cm 22.9 kg/m2 44419.98 g Citlaly Avina [place] - [facility] 09/04/2024 14:41:10 Social History None recorded. Functional Status None recorded. Mental Status None recorded. Family History Nothing Reported. Medical History Condition Response Cancer N Hypertension Y Immunizations Vaccine Type Date Status Note Provider Nam e and Address Organization Details Recorded Time IPV 0 completed DIL[facility]AUER MD [address] [facility] [place], [address], [facility] - [facility] 06/16/2024 12:36:45 cholera, unspecified formulation 1 completed DILIP BAUER MD [address] [facility] [place],[address], [address], [facility] - [facility] 06/16/2024 12:36:45 meningococcal MPSV4 8 completed DILIP BAUER MD [address] [facility] [address], [address], [facility] - [facility] 06/16/2024 12:36:45 COVID-19, mRNA, LNP-S, PF, 30 mcg/0.3 mL dose 2 completed DILIP BAUER MD [address] [facility] [place],[address], [address], [place] [facility] 06/16/2024 12:36:45 COVID-19, mRNA, LNP-S, PF, 30 mcg/0.3 mL dose 1 completed DILIP BAUER MD [address] [facility] [place],[address], [address], [place] [facility] 06/16/2024 12:36:45 Pneumococcal conjugate PCV20, polysaccharide DEE307 conjugate, adjuvant, PF 3 completed DILIP BAUER MD [address],[place] [address] [place] [address], [address], [place] [facility] 06/16/2024 12:36:45 influenza, unspecified formulation 1 completed DILIP BAUER MD [address] [facility] [address],[place] [address] [place] [address], [address], [place] [facility] 06/16/2024 12:36:45 Tdap 4 completed DILIP BAUER MD [address] [facility] [address],[place] [address] [place] [address], [address], [place] [facility] 06/16/2024 12:36:45 Tdap 1 completed DILIP BAUER MD [address] [facility] [address],[place] [address] [place] [address], [address], [place] [facility] 06/16/2024 12:36:45 Pneumococcal conjugate PCV 13 2 completed DILIP BAUER MD [address] [facility] [place] [address] [place] [address], [address], [place] [facility] 06/16/2024 12:36:45 yellow fever live 8 completed DILIP BAUER MD [address],[place] [address] [place] [address], [address], [place] [facility] 06/16/2024 12:36:45 yellow fever live 0 completed DILIP BAUER MD [address],[place] [address] [place] [address], [address], [place] [facility] 06/16/2024 12:36:45 Influenza, high-dose, trivalent, PF 3 completed DILIP BAUER MD [address],[place] [address] [place] [address], [address], [place] [facility] 06/16/2024 12:36:45 Influenza, high-dose, trivalent, PF 7 completed DILIP BAUER MD [address],[place] [address] [place] [address], [address], [place] [facility] 06/16/2024 12:36:45 Influenza, high-dose, trivalent, PF 9 completed DILIP BAUER MD [address] [facility] [place] [address] [place] [address], [address], [place] [facility] 06/16/2024 12:36:46 Influenza, high-dose, trivalent, PF 8 completed DILIP BAUER MD [address] [facility] [place],[address], [address], [place] [facility] 06/16/2024 12:36:46 Influenza, split virus, trivalent, preservative 1 completed DILIP BAUER MD 100 [facility],[address], [address], [place] [facility] 06/16/2024 12:36:46 Influenza, split virus, trivalent, preservative 5 completed DILIP BAUER MD 100 [facility],[address], [address], [place] [facility] 06/16/2024 12:36:46 Influenza, split virus, trivalent, preservative 1 completed DILIP BAUER MD 100 [facility],[address], [address], [place] [facility] 06/16/2024 12:36:46 Influenza, split virus, trivalent, preservative 2 completed DILIP BAUER MD 100 [facility],[address], [address], [place] [facility] [place] 06/16/2024 12:36:46 Influenza, split virus, trivalent, preservative 6 completed DILIP BAUER MD [address] [facility] [place],[address], [address], [place] [facility] 06/16/2024 12:36:46 Influenza, split virus, trivalent, preservative 8 completed DILIP BAUER MD 100 [facility],[address], [address], [place] [facility] [place] 06/16/2024 12:36:46 Hep A, adult 1 completed DILIP BAUER MD 100 [facility],[address], [address], [place] [facility] 06/16/2024 12:36:46 Hep A, adult 0 completed DILIP BAUER MD [address] [place] [address],[address], [address], [place] [facility] 06/16/2024 12:36:46 typhoid, ViCPs 0 completed DILIP BAUER MD [address] [place] [address],[address], [address], [place] [facility] 06/16/2024 12:36:46 typhoid, ViCPs 2 completed DILIP BAUER MD [address] [place] [address],[address], [address], [place] [facility] 06/16/2024 12:36:46 typhoid, ViCPs 4 completed DILIP BAUER MD [address] [place] [address],[address], [address], [place] [facility] 06/16/2024 12:36:46 Past Encounters Encounter ID Performer Location Encounter Start Date Encounter Closed Date Diagnosis/Indication Diagnosis SNOMED-CT Code Diagnosis ICD10 Code Diagnosis IMO Codes Diagnosis Note [id number] DILIP MONTOYA MD [facility] [address] [address] 06/02/2024 13:02:44 06/02/2024 13:53:24 Deviated nasal septum 424992617 J34.2 Pituitary macroadenoma 199846214 D35.2 Imaging reviewed personally . Will discuss withDr Overton [id number] ONUR DALY PA-C [facility] [facility] [address] [place] [address] 08/12/2024 13:56:50 08/12/2024 14:31:54 Deviated nasal septum 542187312 J34.2 Pituitary macroadenoma 436358038 D35.2 Postoperative visit 1836 72942 Z48.89 [id number] DILIP MONTOYA MD [facility] [address] [place] [address] 09/04/2024 14:34:04 09/04/2024 16:18:53 Pituitary macroadenoma 272946418 D35.2 Chronic rhinitis 5639518 6 J31.0 2545 [id number] DILIP MONTOYA MD [facility] [address] [place] [address] 11/07/2024 10:36:50 11/07/2024 11:04:33 Pituitary adenoma 357553511 D35.2 760077 Health Concerns Section Related Observation LastModified by Organization Detai ls LastModified Time None Recorded Concern Status LastModified by Organization Details LastModified Time None Recorded Advance Directives Directive None Recorded Payers Insurance Date Sequence Insurance Name Policy Number Policy Yeung Covered Member ID Yeung Member ID Guarantor Name 09/04/2024 1 [facility] (POS) Ramses Nia Meghna [id number] 1 [facility] 09/04/2024 2 [place]ATIONAL [place]OVERNMENT SERVICES Ramses [facility]ia[facility] [id number] 5 [facility] 09/04/2024 1 [id number] 09/04/2024 1 [place]ERNMENT SERVICES [facility] [id number] 5 [facility] 09/04/2024 1 [place] [facility] [id number] 5 [facility] 09/04/2024 2 [place] [facility] [id number] 5 Ramses Adeline 09/04/2024 1 [facility] (MEDICARE SUPPLEMENT) Ramses Coffman [id number] Ramses Lr 11/07/2024 1 [place] [facility] Ramses Tala [facility] [id number] 5 Ramses Adeline 11/07/2024 2 [facility] Ramses Tala [facility] [id number] Ramses Adeline Notes Date Note Type Note Provider Name and Address Organization Details Recorded Time 06/02/2024 text/html Patient found to have non-secreting pituitary macroadenoma after recent fall/syncopal episode while he had influenza. Referred by neurosurgery for possible surgical removal. Denies any visual difficulties. Denies any nasal obstruction. Review of the MRI of the brain with and without gadolinium with sella protocol on 04/30/2024 shows a 3 x 2.6 cm heterogeneously enhancing macroadenoma with suprasellar extension. This appears contiguous without much of a waist at the diaphragma and abuts under the optic chiasm. The margin of the left cavernous sinus appears blurred. The normal pituitary gland appears deflected posteriorly. There is no hemorrhage. DILIP BAUER MD [facility],[address], [address], [facility] 06/03/2024 14:43:57 08/12/2024 text/html ROS as noted in the HPI 73yo male presents following septoplasty to remove pituitary tumor on 08/05/[address] Bauer. A transphenoidal approach was used. Pathology is benign. He has been following postoperative instructions and using saline mist 4-6 times daily. Denies continued nasal pain or bleeding since surgery. He reports mild headache and dizziness. Taking tylenol and oxycodone for pain. JAMEEL MCPHERSON MD [address] [place] [address],[address], [phone], [facility] 08/12/2024 17:33:34 09/04/2024 text/html Patient seen 1 month following endoscopic removal of pituitary adenoma with septoplasty. Breathing is good. No bleeding or foul smell. DILIP BAUER MD [address] [facility],[address], [address], [place] - [facility] 09/04/2024 15:20:51 11/07/2024 text/html Ramses Lr is a 74-year-old male who presents for evaluation of the nose following surgery on 08/05. The patient reports no issues with breathing, headaches, spinal fluid leaks, or foul smell in the nose. He underwent an MRI scan in July during his hospital discharge to ensure everything was okay. The patient has not yet followed up with Dr. Overton, the neurosurgeon. DILIP BAUER MD [address] [facility],[place] [address], [place], [phone], [facility] - [facility] 11/07/2024 11:05:24
== END 2024-12-17 10:27 | disposition home or self-care (01) ==
LOC: HO.US 10:26
PROVIDERS: Visit Provider Urology
DX: R97.20 Elevated prostate specific antigen [PSA] (principal); N39.0 Urinary tract infection, site not specified
CPT/HCPCS: 76857

== ENCOUNTER → 2024-12-17 10:28 | Outpatient (BNV) | payer MEDICARE, OTHER, SELFPAY | PROVIDERS: Visit Provider Radiology Diagnostic Radiology | DX: N40.1 Benign prostatic hyperplasia with lower urinary tract symptoms (principal); R39.14 Feeling of incomplete bladder emptying | CPT/HCPCS: 76857 ==

== ENCOUNTER 2024-12-23 13:04 | Outpatient (AMB) | payer MEDICARE, OTHER, SELFPAY ==
--- OUTSIDE RECORDS SUMMARY | 2024-12-22 14:15 | XMS_ITS | Encounter Summary ---
Author Organization [facility] Address [address] [place] [address] Care Team Providers Care Label Cutter Name Role Phone Ronna Castano MD Primary Care Provider [phone] Reason for Visit * Reason Comments Follow-up Encounter Details Date Type Department Care Team (Late st Contact Info) Description 12/22/2024 2:15 PM EDT Office Visit [facility] Hematology Oncology [address] [place] [phone] Charito Monzon PA [address] [place] [address] Anemia, unspecified type (Primary Dx); Elevated liver enzymes; Benign prostatic hyperplasia, unspecified whether lower urinary tract symptoms present Social History Tobacco Use Types Packs/Day Years [...] for your loved ones. For example, child welfare counselor or elderly care for an older adult? [...] AM EST documented as of this encounter Last Filed Vital Signs Vital Sign Reading Time Taken Comments Blood Pressure 142/72 12/22/2024 2:29 PM EDT Pulse 79 12/22/2024 2:29 PM EDT Temperature 36.6 C (97.9 F) 12/22/2024 2:29 PM EDT Respiratory Rate - - Oxygen Saturation 100% 12/22/2024 2:29 PM EDT Inhaled Oxygen Concentration - - Weight 77.6 kg (171 lb) 12/22/2024 2:29 PM EDT Height - - Body Mass Index 24.54 12/08/2024 12:45 PM EDT documented in this encounter Functional Status * Are you [...] Osiel Kraft RN documented in this encounter Progress Notes * KAYLYNN Caballero - 12/22/2024 2:15 PM EDT Images from the original note were not included. Hematology/Oncology Consult Note Date of Consult: 12/22/2024 Patient's Primary Care Physician: Ronna Castano MD Subjective History of Present Illness History of Present Illness The patient is a 74-year-old -[place] male who returns for follow up of anemia work up. Anemia work up is overall unremarkable. A reticulocyte count was satisfactory. A broad anemia screening laboratory panel, including screening for nutritional deficiencies, hypothyroidism, hemolysis, and multiple myeloma was unremarkable. He had an elevated liver enzyme level recently and saw Sara Montes De Oca PA-C from . He then underwent ultrasound of his abdomen, which he has not been resulted yet. He reports feeling well overall, with no symptoms of fatigue, weight loss, night sweats, swollen glands, headache, dizziness, SOB. He denies any clinical bleeding or black stools. He is UTD with colonoscopy. His PSA levels were high last year, and he is being seen at [facility]. He has had 2 biopsies, which were negative for cancer, but he has prostate enlargement. He was advised to go to [facility] for a procedure to shave it down, but he did not agree to that. He has been going to [facility] for regular check-ups. He will have an ultrasound on 12/21/[address] Jasen Farfan on 12/23/2024 at 1:00 PM. Past Medical History Past Medical History: Diagnosis Date BPH (benign prostatic hypertrophy) 03/10/2008 DX:BPH (benign prostatic hypertrophy); COMMENT: [place]; elevated PSA; biopsied multiple times negative HTN (hypertension) 10/01/2018 DX:HTN (hypertension) Other and unspecified hyperlipidemia 01/11/2011 DX:Other and unspecified hyperlipidemia Syncope and collapse 03/10/2008 DX:Syncope and collapse Past Surgical History Past Surgical History: Procedure Laterality Date APPENDECTOMY COLONOSCOPY 02/23/2011 PROCEDURE: NE COLONOSCOPY FLX DX W/COLLJ SPEC WHEN PFRMD; COMMENT: negative but suboptimal COLONOSCOPY 2021 Dr. Boggs, 10-year recall OTHER SURGICAL HISTORY 03/03/08 PROCEDURE: CAT SCAN OF HEAD/BRAIN NO CONTRAST; COMMENT: [facility]; neg PITUITARY EXCISION 08/05/2024 ROTATOR CUFF REPAIR Bilateral SHOULDER SURGERY 2004 PROCEDURE: HISTORICAL SHOULDER SURGERY; COMMENT: dislocation Left shoulder Family History Family History Problem Relation Name Age of Onset Asthma Brother Other (Other: neg) Other Colon cancer Neg Hx Personal and Social History Social History Tobacco Use Smoking Status Never Smokeless Tobacco Never Social History Substance and Sexual Activity Alcohol Use Yes Comment: OCCASIONAL Social History Substance and Sexual Activity Drug Use No He drinks alcohol very rarely, typically only on special occasions like [place] and .He does not smoke. REVIEW OF SYSTEMS: Constitutional: No fevers, weight loss, nightsweats, chills, fatigue HEENT: No oral lesions Respiratory: No cough, shortness of breath Cardiac: No chest pain, palpitations GI: No nausea, vomiting, diarrhea, constipation, abdominal pain : No urinary complaints Skin: No rashes or ease of bruising Neuro: No headaches, dizziness, focal weakness, paresthesias Musculoskeletal: No bone pain, no joint pain. Hem/Lymph : No palpable lymph nodes, no bleeding or easy bruising Objective Medications Current Outpatient Medications: amLODIPine (NORVASC) 10 mg tablet, Take 1 tablet (10 mg total) by mouth 1 (one) time each day., Disp: 90 tablet, Rfl: 1 multivitamin tablet, Take 1 tablet by mouth 1 (one) time each day., Disp: , Rfl: atorvastatin (LIPITOR) 40 mg tablet, Take 1 tablet (40 mg total) by mouth 1 (one) time each day. (Patient not taking: Reported on 12/22/2024), Disp: 90 tablet, Rfl: 1 levETIRAcetam (KEPPRA) 500 mg tablet, Take 1 tablet (500 mg total) by mouth 2 (two) times a day. (Patient not taking: Reported on 12/22/2024), Disp: 60 each, Rfl: 2 oxyCODONE (ROXICODONE) 5 mg immediate release tablet, Take 1 tablet (5 mg total) by mouth every 4 (four) hours if needed for moderate pain. Max Daily Amount: 30 mg (Patient not taking: Reported on 12/22/2024), Disp: 20 tablet, Rfl: 0 senna-docusate (PERICOLACE) 8.6-50 mg per tablet, Take 1 tablet by mouth at bedtime. (Patient not taking: Reported on 12/22/2024), Disp: 30 each, Rfl: 11 Allergies No Known Allergies Physical Exam Vitals: 12/22/24 1429 BP: (!) 142/72 BP Location: Left arm Patient Position: Sitting Pulse: 79 Temp: 36.6 ??C (97.9 ??F) TempSrc: Temporal SpO2: 100% Weight: 77.6 kg (171 lb) Body mass index is 24.54 kg/m??. General: well appearing, in no acute distress Eyes: conjunctiva pink and sclera are Normal without icterus Oral cavity: No erythema or exudates Resp: CTA; normal inspiratory effort, no wheezes, rhonchi or rales Cardio: RRR, no murmurs rubs or gallops MSK: FROM of UE and Les bilaterally; no edema Skin: warm, dry, no rashes Neuro: alert and oriented, normal speech, normal gait Imaging Labs HGB HISTORY: Assessment & Plan Assessment & Plan 1. Anemia. Anemia remains stable with mild to moderate classification. Kidney function is satisfactory, and liver function, previously slightly elevated, has now normalized. No additional supplementation required at this time. The most probable cause is chronic disease. Hemolysis, MGUS and MM ruled out. Thereis a small chance that he might have early MDS. However, a bone marrow test is not deemed necessaryat this point given no indication for therapeutic intervention should he have early MDS. Follow-up visit scheduled for 6 months to ensure condition remains stable. If no changes at the next visit, further follow-ups may not be necessary. Blood work ordered to be completed 1 week prior tothe 6-month follow-up visit. 2. Elevated liver enzymes. One liver enzyme was elevated and a general laborer was recently consulted. An ultrasound of theabdomen was performed but it has not yet been resulted. Follow up with the general laborer. 3. Elevated PSA. PSA levels are elevated, and an appointment with Dr. Farfan (Urology) is scheduled for tomorrow to discuss further. He has BPH. He refused TURP. Previous biopsies have been negative for cancer, so no immediate concerns from a hematology perspective. Follow-up Follow up in 6 months. Please note, this note may have been created in part by using [employer] dictation software, and therefore, it may contain typographical and/or grammatical errors inherent in a voice recognition software program Sign: Charito Monzon PA-C Hematology/Oncology [facility] [phone] Cosigned by Aundrea Escobedo MD at 12/22/2024 4:23 PM EDT documented in this encounter Plan of Treatment Upcoming Encounters Date Type Department Care Team (Late st Contact Info) Description 06/22/2025 2:30 PM EDT Office Visit [facility] Hematology Oncology [address] [place] [address] Charito Monzon PA [address] [place] [address] Scheduled Orders Name Type Priority Associated Diagnoses Orde r Schedule CBC and differential Lab Routine Anemia, unspecified type Expected: 06/22/2025, Expires: 12/22/2025 Basic metabolic panel Lab Routine Anemia, unspecified type Expected: 06/22/2025, Expires: 12/22/2025 Immunofixation electrophoresis, IGG, IGA, IGM Lab Routine Anemia, unspecified type Expected: 06/22/2025, Expires: 12/22/2025 Kingfisher-lambda free light chains, quantitative Lab Routine Anemia, unspecified type Expected: 06/22/2025, Expires: 12/22/2025 Protein electrophoresis, serum Lab Routine Anemia, unspecified type Expected: 06/22/2025, Expires: 12/22/2025 documented as of this encounter Visit Diagnoses Diagnosis Anemia, unspecified type- Primary Elevated liver enzymes Other nonspecific abnormal serum enzyme levels Benign prostatic hyperplasia, unspecified whether lower urinary tract symptoms present documented in this encounter Care Teams Label Cutter Relationship Specialty Start Date End Date Ronna Castano MD [address] [place] [phone] PCP - General Internal Medicine 12/18/24 documented as of this encounter
--- NOTE | 2024-12-23 13:14 | MHC.OFFVIS ---
Intake Visit Reasons: 4M /US/ PSA Intake Note: Patient is present for 4m/US/PSA Urology Medication:NONE Antibiotic Allergy:NONE Blood Thinner:NONE PVR:146ML'S Tool Grinder Set Up Operator Gear Required: No Allergies No Known Allergies Allergy (Verified 12/23/24 13:15) HPI Comments Details: Ramses is a pleasant male. He is seen for the following urologic conditions - BPH with elevated PSA - elevated PSA - lower urinary tract symptoms Bladder ultrasound - 240 g prostate PSA 17 PSA density less than 10% - lower probability of prostate cancer He would like to move ahead with GreenLight laser prostatectomy Initiate finasteride Lower urinary tract symptoms Followed previously with urology Marked obstructive symptoms Prior biopsy 2018 Prior MRI no suspicious lesions Known large prostate Review of Systems Const Denies chills and Denies fever(s) Card Reports no additional complaints and Denies syncope Resp Denies cough GI Denies abdominal pain and Denies heartburn Reports as per HPI and Denies change in libido Neuro Denies syncope Psych Denies change in libido Endo Denies change in libido Physical Exam Const General: cooperative, healthy appearing, comfortable and no acute distress Orientation/consciousness: patient oriented x3 HEENT Face and sinus: Yes normal facial exam Mouth: moist mucous membranes Neck Neck: Yes normal visual inspection, Yes full ROM and Yes trachea midline Chest Chest palpation & inspection: normal inspection of the chest Resp Effort & Inspection: normal respiratory effort, able to speak in complete sentences and no respiratory distress GI Inspection: Yes normal to inspection Back/Spine/Pelvis Cervical Spine: normal cervical lordosis Thoracic/Lumbar Spine: thoracic and lumbar spine normal to inspection Skin General skin exam: no rashes or lesions noted Neuro General: patient oriented x3, gait normal, tone normal and moves all extremities Extrem General: Yes normal to inspection and Yes capillary refill normal Assessment & Plan Assessment & Plan (1) BPH w urinary obs/LUTS: Code(s): N40.1 - Benign prostatic hyperplasia with lower urinary tract symptoms; N13.8 - Other obstructive and reflux uropathy Category: Medical (2) Elevated PSA: Code(s): R97.20 - Elevated prostate specific antigen [PSA] Category: Medical Plan We discussed the nature of the decision and reasonable options for performing a prostate intervention. Interventions include TURP, GreenLight laser enucleation of the prostate, GreenLight laser ablation of the prostate, transurethral incision of the prostate, and I-Tend prostate procedure. Options such as medical therapy were discussed. The relative uncertainties and benefits related to each alternate procedure were adequately discussed. General surgical risks including, but not limited to, pain, bleeding, infection, myocardial infarction, pulmonary embolus, deep vein thrombosis and cerebrovascular accident which may result in further hospitalization were discussed. Full disclosure of the procedure as well as all major risks, benefits and complications were discussed including but not limited to damage to the urethra or bladder neck, recurrent BPH, retrograde ejaculation, bladder infection, urge, de carmen frequency, incomplete emptying, dysuria, remote chance of erectile dysfunction, epididymitis, and meatal stenosis. The success rate of the procedure was discussed. Success of the procedure in the short-term does not necessarily guarantee that long-term success will be maintained. Suitable follow up will need to be maintained. The patient showed understanding of discussion. An opportunity was provided for questions to be answered and wishes to proceed with the following procedure. - GreenLight laser prostate with prostate biopsy Medications: New finasteride 5 mg PO DAILY 90 tabs 1RF 90 days N13.8 - Other obstructive and reflux uropathy, N40.1 - Benign prostatic hyperplasia with lower urinary tract symptoms Patient Instructions: This note is constructed using voice recognition software. While every effort has been made to ensure accuracy education nurse errors may have been included. Imaging studies, laboratory and physical exam results were discussed and reviewed in detail. No major barriers to patient understanding were identified. An opportunity to ask questions regarding the treatment plan was provided. All questions were answered. The patient expressed understanding and agreement with the above treatment plan. The patient is aware they should contact our office by phone for worsening of their current condition or the appearance of new urologic symptoms. Compliance is encouraged with any medications and followup testing that is ordered. It is a privilege to participate in the urologic care of your patient. If you have any questions or concerns regarding treatment for the above conditions, or other urologic issues, please do not hesitate to contact me. The office telephone contact is [phone]. Sincerely, Dr Andres Farfan MD, [facility] - Urology Compassionate Specialist Care for the Genitourinary System Coding Level of Care Code Est Pt Level 4 (37373) Complex EM visit Add On G2211 Diagnoses BPH w urinary obs/LUTS N40.1; N13.8 Elevated PSA R97.20
--- OUTSIDE RECORDS SUMMARY | 2024-12-23 16:01 | XMS_ITS | Encounter Summary ---
Author Organization [facility] Address [address] [place] [address] Care Team Providers Care Tool Repairer Bench Name Role Phone Paul Cee MD Primary Care Provider [phone] Encounter Details Date Type Department Care Team Description 08/21/2019 Quality Control Representative Report Medical Records [address] [place] [id number] [place], [facility] Social History Tobacco Use Types Packs/Day Years Used Date Smoking Tobacco: Never Smokeless Tobacco: Never Alcohol Use Standard Drinks/Week Comments No 0 (1 standard drink = 0.6 oz pur e alcohol) Sex Assigned at Date Recorded Not on file documented as of this encounter Plan of Treatment Not on file documented as of this encounter Visit Diagnoses Not on filedocumented in this encounter Care Teams Tool Repairer Bench Relationship Specialty Start Date End Date Paul Cee MD [address] [place] [address] PCP - General Internal Medicine 05/02/17 documented as of this encounter
--- OUTSIDE RECORDS SUMMARY | 2024-12-23 16:01 | XMS_ITS | Encounter Summary ---
Author Organization [facility] Address [address] [place] [address] Care Team Providers Care Casing In Line Setter Name Role Phone Paul Cee MD Primary Care Provider [phone] Reason for Visit * Reason Comments E-prescribe Rx Request Encounter Details Date Type Department Care Team Description 06/22/2021 Refill Adult Medicine [address] [address] Paul Cee MD [address] [place] [phone] E-prescribe Rx Request Social History Tobacco Use Types Packs/Day Years Used Date Smoking Tobacco: Never Smokeless Tobacco: Never Alcohol Use Standard Drinks/Week Comments No 0 (1 standard drink = 0.6 oz pur e alcohol) Sex Assigned at Date Recorded Not on file documented as of this encounter Miscellaneous Notes * Telephone Encounter - Mare Rdz M.A. - 06/22/2021 10:40 AM EDT Last office visit 04/27/21 Lab Results Component Value Date NA 141 04/26/2021 K 4.1 04/26/2021 CO2 29 04/26/2021 CL 107 04/26/2021 BUN 19 04/26/2021 CREAT 1.25 04/26/2021 GLU 93 04/26/2021 CA 9.1 04/26/2021 GFR 57 04/26/2021 * Telephone Encounter - Landy Muñoz - 06/22/2021 7:11 AM EDT Patient would like script to be: E-PRESCRIBED/FAXED TO PHARMACY WHEN WAS THE PATIENT'S LAST APPOINTMENT IN ADULT MEDICINE? 04-27-21 WHEN WAS THE LAST TIME THE PATIENT SAW THEIR PCP? 03-30-21 Does patient have an upcoming appointment? Yes 10-25-21 (THE MEDICATION REQUESTED IS ON THE MED LIST ABOVE) All of the medications requested were on the CURRENT MEDS list Did you check the Pharmacy information above?: YES Patient wants: 30 -day supply Is this a mail order prescription request ? NO If the refill is from a FAXED refill request what is the RX # listed on the fax? N/A Patients current insurance carrier is: Payor: [facility] / Plan: PPO $20 BARBEAU [id number] / Product Type: PPO [id number] documented in this encounter Plan of Treatment Not on file documented as of this encounter Visit Diagnoses Diagnosis Hypertension, unspecified type documented in this encounter Care Teams Casing In Line Setter Relationship Specialty Start Date End Date Paul Cee MD [address] [place] [address] PCP - General Internal Medicine 05/02/17 documented as of this encounter
--- OUTSIDE RECORDS SUMMARY | 2024-12-23 16:01 | XMS_ITS | Encounter Summary ---
Author Organization [facility] Address [address] [place] [address] Care Team Providers Care Recreation Worker Name Role Phone Paul Cee MD Primary Care Provider [phone] Reason for Visit * Reason Onset Date Comments Faxed Refill 02/13/2020 Encounter Details Date Type Department Care Team Description 02/13/2020 Refill Adult Medicine B - [address] [address] Paul Cee MD [address] [place] [id number] Faxed Refill Social History Tobacco Use Types Packs/Day Years Used Date Smoking Tobacco: Never Smokeless Tobacco: Never Alcohol Use Standard Drinks/Week Comments No 0 (1 standard drink = 0.6 oz pur e alcohol) Sex Assigned at Date Recorded Not on file documented as of this encounter Miscellaneous Notes * Telephone Encounter - Rik Vivar NP - 02/13/2020 4:32 PM EST Approved * Telephone Encounter - Sue Lozano - 02/13/2020 2:51 PM EST Date of last office visit 06/27/19, pended appt 02/16/20. Lab Results Component Value Date NA 141 10/17/2018 K 4.1 10/17/2018 CO2 28 10/17/2018 CL 105 10/17/2018 BUN 15 10/17/2018 CREAT 1.22 10/17/2018 GLU 91 10/17/2018 CA 9.4 10/17/2018 GFR 59 10/17/2018 * Telephone Encounter - Jelena Davenport - 02/13/2020 2:35 PM EST Patient would like script to be: E-PRESCRIBED/FAXED TO PHARMACY When was the patients last office visit in Adult Medicine?: 06/27/19 When was the last time the patient saw their PCP? Same as above Does patient have an upcoming appointment? Yes 02/16/20 (THE MEDICATION IS NOT ON THE MED LIST AND IS IDENTIFIED BELOW): {MED LIST:23784) Med name: Amlodipine Bysylate Dosage: 5 MG # of tablets: 30 Local pharmacy with request for 30 -day supply Instructions: Take one tablet by mouth daily Did you check the pharmacy information above?: YES Patients current insurance carrier: Payor: [facility] / Plan: PPO $20 [place] [id number] / Product Type: [id number] documented in this encounter Plan of Treatment Not on file documented as of this encounter Visit Diagnoses Diagnosis Hypertension, unspecified type documented in this encounter Care Teams Recreation Worker Relationship Specialty Start Date End Date Paul Cee MD [address] [place] [id number] PCP - General Internal Medicine 05/02/17 documented as of this encounter
--- OUTSIDE RECORDS SUMMARY | 2024-12-23 16:01 | XMS_ITS | Encounter Summary ---
Author Organization [facility] Address [address] [place] [address] Care Team Providers Care Glass Cylinder Flanger Name Role Phone Paul Cee MD Primary Care Provider [phone] Encounter Details Date Type Department Care Team Description 01/23/2023 Orders Only Medical Records [address] [place] [address] Sami Alas MD [address] [place] [phone] Social History Tobacco Use Types Packs/Day Years Used Date Smoking Tobacco: Never Smokeless Tobacco: Never Alcohol Use Standard Drinks/Week Comments No 0 (1 standard drink = 0.6 oz pur e alcohol) Sex Assigned at Date Recorded Not on file documented as of this encounter Plan of Treatment Not on file documented as of this encounter Procedures Procedure Name Priority Date/Time Associated Diagnosis Comments OUTSIDE PATHOLOGY Routine 01/19/2023 documented in this encounter Results * OUTSIDE PATHOLOGY (01/19/2023) Sami Alas MD OUTSIDE LAB documented in this encounter Visit Diagnoses Not on filedocumented in this encounter Care Teams Glass Cylinder Flanger Relationship Specialty Start Date End Date Paul Cee MD [address] [place] [address] PCP - General Internal Medicine 05/02/17 documented as of this encounter
--- OUTSIDE RECORDS SUMMARY | 2024-12-23 16:01 | XMS_ITS | Encounter Summary ---
Author Organization [facility] Address [address] [place] [address] Care Team Providers Care Manager Center Name Role Phone Luis Monzon MD Primary Care Provider Unavail able Paul Cee MD Primary Care Provider [phone] Encounter Details Date Type Department Care Team Description 08/04/2013 Ict Educator Report Medical Records [address] [place] [address] Toby Baugh MD Social History Tobacco Use Types Packs/Day Years Used Date Smoking Tobacco: Never Alcohol Use Standard Drinks/Week Comments No 0 (1 standard drink = 0.6 oz pur e alcohol) Sex Assigned at Date Recorded Not on file documented as of this encounter Plan of Treatment Not on file documented as of this encounter Visit Diagnoses Not on filedocumented in this encounter Care Teams Manager Center Relationship Specialty Start Date End Date Luis Monzon MD PCP - General 03/19/1995 05/01/17 Paul Cee MD [address] [place] [id number] PCP - General Internal Medicine 05/02/17 documented as of this encounter
--- OUTSIDE RECORDS SUMMARY | 2024-12-23 16:01 | XMS_ITS | Encounter Summary ---
Author Organization [facility] Address [address] [place] [address] Care Team Providers Care Palliative Nurse Name Role Phone Paul Cee MD Primary Care Provider [phone] Encounter Details Date Type Department Care Team Description 01/22/2023 Orders Only Medical Records [address] [place], [place] [id number] [place] [address] Social History Tobacco Use Types Packs/Day Years [...] Name Priority Date/Time Associated Diagnosis Comments OUTSIDE CT Routine 01/19/2023 documented in this encounter Results * OUTSIDE CT (01/19/2023) [facility] RADIOLOGY documented in this encounter Visit Diagnoses Not on filedocumented in this encounter Care Teams Palliative Nurse Relationship Specialty Start Date End Date Paul Cee MD [address] [place] [address] PCP - General Internal Medicine 05/02/17 documented as of this encounter
--- OUTSIDE RECORDS SUMMARY | 2024-12-23 16:01 | XMS_ITS | Encounter Summary ---
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 [address] [place] [address] Toby Baugh MD Social History Tobacco Use Types Packs/Day Years Used Date Smoking Tobacco: Never Alcohol Use Standard Drinks/Week Comments Not Asked 0 (1 standard drink = 0.6 oz pur e alcohol) Sex Assigned at Date Recorded Not on file documented as of this encounter Plan of Treatment Not on file documented as of this encounter Visit Diagnoses Not on filedocumented in this encounter Care Teams Household Assistant Relationship Specialty Start Date End Date Luis Monzon MD PCP - General 03/19/1995 05/01/17 Paul Cee MD [address] [place] [id number] PCP - General Internal Medicine 05/02/17 documented as of this encounter
--- OUTSIDE RECORDS SUMMARY | 2024-12-23 16:01 | XMS_ITS | Encounter Summary ---
Author Organization [facility] Address [address] [place] [address] Care Team Providers Care Gas Cutting Machine Operator Name Role Phone Paul Cee MD Primary Care Provider [phone] [phone] Encounter Details Date Type Department Care Team Description 03/20/2019 Release of Information Medical Records [address] [place] [address] Abstract, Provider Social History Tobacco Use Types Packs/Day Years [...] on filedocumented in this encounter Care Teams Gas Cutting Machine Operator Relationship Specialty Start Date End Date Paul Cee MD [address] [place] [address] PCP - General Internal Medicine 05/02/17 documented as of this encounter
--- OUTSIDE RECORDS SUMMARY | 2024-12-23 16:01 | XMS_ITS | Encounter Summary ---
Author Organization [facility] Address [address] [place] [address] Care Team Providers Care Can Filling And Closing Machine Tender Name Role Phone Paul Cee MD Primary Care Provider [phone] Encounter Details Date Type Department Care Team Description 09/11/2018 Orders Only Adult Medicine [address] [address] Paul Cee MD [address] [place] [address] Preoperative examination; Screening for deficiency anemia Social History Tobacco Use Types Packs/Day Years Used Date Smoking Tobacco: Never Smokeless Tobacco: Never Alcohol Use Standard Drinks/Week Comments No 0 (1 standard drink = 0.6 oz pur e alcohol) Sex Assigned at Date Recorded Not on file documented as of this encounter Plan of Treatment Not on file documented as of this encounter Results * BASIC METABOLIC PANEL (09/27/2018 12:37 PM EDT) [facility] GLUCOSE 93 70 - 100 mg/dL 09/27/2018 3:20 PM EDT [facility] Comment:Reference range appl icable to fasting specimens only Blood Urea Nitrogen 14 5 - 25 mg/dL 09/27/2018 3:20 PM EDT [facility] CREAT 1.28 0.7 - 1.3 mg/dL 09/27/2018 3:20 PM EDT [facility] GLOMERULAR FILTRATION RATE 56 09/27/2018 3:20 PM EDT [facility] Comment: If patient is -[place], multiply result by 1.21 Chronic Kidney Disease: < 60 ml/min/1.73 square meters Kidney Failure: < 15 ml/min/1.73 square meters NA 140 133 - 145 mmol/L 09/27/2018 3:20 PM EDT [facility] K 4.0 3.5 - 5.5 mmol/L 09/27/2018 3:20 PM EDT [facility] CL 105 96 - 110 mmol/L 09/27/2018 3:20 PM EDT [facility] CARBON DIOXIDE (CO2) 30 21 - 32 mmol/L 09/27/2018 3:20 PM EDT [facility] ANION GAP 5 3 - 11 09/27/2018 3:20 PM EDT [facility] CALCIUM 9.4 8.5 - 10.5 mg/dL 09/27/2018 3:20 PM EDT [facility] 09/27/2018 12:3 7 PM EDT 09/27/2018 12:38 PM EDT Paul Cee MD LAB [facility] * (ABNORMAL) CBC (AUTO DIFF PLATELET) (09/27/2018 12:37 PM EDT) WHITE BLOOD COUNT 7.0 4.8 - 10.8 x10-3/uL 09/27/2018 3:07 PM EDT [facility] RED BLOOD COUNT 4.6 4.5 - 5.5 x10-6/uL 09/27/2018 3:07 PM EDT [facility] Hemoglobin 12.9(L) 13.5 - 17.5 g/dL 09/27/2018 3:07 PM EDT [facility] Hematocrit 39.5(L) 42 - 54 % 09/27/2018 3:07 PM EDT [facility] MEAN CORPUSCULAR VOLUME 86.1 79 - 98 fL 09/27/2018 3:07 PM EDT [facility] MEAN CORPUSCULAR HEMOGLOBIN 28.1 27 - 32 pg 09/27/2018 3:07 PM EDT [facility] MEAN CORPUSCULAR HGB CONC 32.7 32 - 37 g/dL 09/27/2018 3:07 PM EDT [facility] RED CELL DISTRIBUTION WIDTH 13.4 11 - 15 % 09/27/2018 3:07 PM EDT [facility] PLT COUNT 265 130 - 400 x10-3/uL 09/27/2018 3:07 PM EDT [facility] MEAN PLATELET VOLUME 10.0 7 - 11 fL 09/27/2018 3:07 PM EDT [facility] NRBC % AUTO 0.0 <1 % 09/27/2018 3:07 PM EDT [facility] NEUTROPHILS % 43.7 % 09/27/2018 3:07 PM EDT [facility] LYMPH % 46.5 % 09/27/2018 3:07 PM EDT [facility] MONO % 8.5 % 09/27/2018 3:07 PM EDT [facility] EOS % 0.4 % 09/27/2018 3:07 PM EDT [facility] BASO % 0.6 % 09/27/2018 3:07 PM EDT [facility] IMMATURE GRANULOCYTES % 0.3 % 09/27/2018 3:07 PM EDT [facility] NRBC # AUTO 0.00 <0.1 x10-3/uL 09/27/2018 3:07 PM EDT [facility] NEUT # 3.05 1.5 - 7.0 x10-3/uL 09/27/2018 3:07 PM EDT [facility] LYMPH # 3.24 1 - 5.0 x10-3/uL 09/27/2018 3:07 PM EDT [facility] MONO # 0.59 0.2 - 1.0 x10-3/uL 09/27/2018 3:07 PM EDT [facility] EOS # 0.03 0 - 0.5 x10-3/uL 09/27/2018 3:07 PM EDT [facility] BASO # 0.04 0 - 0.2 x10-3/uL 09/27/2018 3:07 PM EDT [facility] IMMATURE GRANULOCYTES # 0.02 0 - 0.03 x10-3/uL 09/27/2018 3:07 PM EDT [facility] 09/27/2018 12:3 7 PM EDT 09/27/2018 12:38 PM EDT Paul Cee MD LAB [facility] documented in this encounter Visit Diagnoses Diagnosis Preoperative examination Preoperative examination, unspecified Screening for deficiency anemia Screening for other and unspecified deficiency anemia documented in this encounter Care Teams Can Filling And Closing Machine Tender Relationship Specialty Start Date End Date Paul Cee MD [address] [place] [address] PCP - General Internal Medicine 05/02/17 documented as of this encounter
--- OUTSIDE RECORDS SUMMARY | 2024-12-23 16:01 | XMS_ITS | Encounter Summary ---
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 No / Unsure 09/29/2021 9:55 AM EDT documented as of this encounter Plan of Treatment Not on file documented as of this encounter Visit Diagnoses Not on filedocumented in this encounter Care Teams Supply Chain Consultant Relationship Specialty Start Date End Date Paul Cee MD [address] [place] [address] PCP - General Internal Medicine 05/02/17 documented as of this encounter
--- OUTSIDE RECORDS SUMMARY | 2024-12-23 16:01 | XMS_ITS | Clinical Summary ---
Author Organization [facility] Address [address] [place] [address] Phone Care Team Providers Care Ball Assembler Name Role Phone Ronna Castano MD Primary Care Provider [phone] Allergies No known active allergies Medications levETIRAcetam (KEPPRA) 500 mg tablet Take 1 tablet (500 mg total) by mouth 2 (two) times a day. 60 each 2 5 Active Additional Information Patient not taking.Reported on 12/22/2024 atorvastatin (LIPITOR) 40 mg tablet Take 1 tablet (40 mg total) by mouth 1 (one) time each day. 90 tablet 1 5 Active Additional Information Patient not taking.Reported on 12/22/2024 multivitamin tablet Take 1 tablet by mouth 1 (one) time each day. Active amLODIPine (NORVASC) 10 mg tablet Take 1 tablet (10 mg total) by mouth 1 (one) time each day. 90 tablet 1 5 Active oxyCODONE (ROXICODONE) 5 mg immediate release tablet Take 1 tablet (5 mg total) by mouth every 4 (four) hours if needed for moderate pain. Max Daily Amount: 30 mg 20 tablet 5 Active Additional Information Patient not taking.Reason: Not effective, Reported on 12/22/2024 senna-docusate (PERICOLACE) 8.6-50 mg per tablet Take 1 tablet by mouth at bedtime. 30 each 11 08/08/19 26 Active Additional Information Patient not taking.Reported on 12/22/2024 Active Problems Problem Noted Date Diagnosed Date Chronic rhinitis 09/04/2024 Pituitary adenoma ([facility] V24, [facility] V28) Assessment & Plan (08/15/2024 4:27 PM [...] septum 07/01/2024 Pituitary macroadenoma with extrasellar extension ([facility] V24, [facility] V28) 05/02/2024 Assessment & Plan (08/18/2024 1:55 [...] planned to have surgery on this on May 20. Denies any cardiac symptoms and does not [...] Encounters Date Type Department Care Team Description 12/22/2024 2:15 PM EDT Office Visit [facility] Hematology Oncology [address] [place] [phone] Charito Monzon PA Anemia, unspecified type (Primary Dx); Elevated liver enzymes; Benign prostatic hyperplasia, unspecified whether lower urinary tract symptoms present 12/15/2024 2:17 PM EDT - 12/15/2024 11:59 PM EDT Hospital Encounter [facility] Ultrasound [address] [place] [address] Elevated alkaline phosphatase level Discharge Disposition: Home or Self Care 12/08/2024 1:45 PM EDT Lab Draw Station - [address] [phone] Encounter for screening for other viral diseases; Anemia, unspecified type 12/08/2024 1:00 PM EDT Office Visit [facility] Hematology Oncology [address] [place] [phone] Charito Monzon PA Anemia, unspecified type (Primary Dx); Elevated liver enzymes; Benign prostatic hyperplasia, unspecified whether lower urinary tract symptoms present 12/04/2024 Telephone Gastroenterology - [address] [phone] Melissa Alcaraz [place] 11/28/2024 10:35 AM EDT Lab Draw Station - [address] [place] [phone] Elevated alkaline phosphatase level; Encounter for screening for other viral diseases; Contact with and (suspected) exposure to viral hepatitis 11/28/2024 9:40 AM EDT Consult Gastroenterology - [address] [phone] Sara Montes De Oca PA Elevated alkaline [...] CAT SCAN OF HEAD/BRAIN NO CONTRAST; COMMENT: [facility]; neg COLONOSCOPY 02/23/2011 PROCEDURE: MN COLONOSCOPY FLX DX W/COLLJ SPEC WHEN PFRMD; [...] ed Within the last 3 months, ho aydee many times did you visit the emergency [...] your loved ones. For example, child care associate or elderly care for an older adult? [...] F) 12/22/2024 2:29 PM EDT Respiratory Rate 15 08/07/2024 9:00 AM EDT Oxygen Saturation 100% 12/22/2024 2:29 PM EDT Inhaled Oxygen Concentration - - Weight 77.6 kg (171 lb) 12/22/2024 2:29 PM EDT Height 177.8 cm (5' 10 ) 12/08/2024 12:45 PM EDT Body Mass Index 24.54 12/08/2024 12:45 PM EDT Plan of Treatment Upcoming Encounters Date Type Department Care Team (Late st Contact Info) Description 06/22/2025 2:30 PM EDT Office Visit [facility] Hematology Oncology [address] [place] [phone] Charito Monzon PA [address] [place] [address] Health Maintenance Due Date Last Done Comments Colorectal Cancer Screening: Colonoscopy 1950 Zoster Vaccines (1 of 2) 11/03/2001 IPV Vaccines (2 of 3 - Adult catch-up series) 11/23/2009 10/26/2009 Medicare Annual Wellness Visit 02/14/2022 DTaP,Tdap,and Td Vaccines (3 - Td or Tdap) 11/14/2023 11/13/2013, 01/11/2011 Depression Screening 03/19/2024 Social Influencers of Health Screening 04/29/2025 04/29/2024 COVID-19 Vaccine ( season) 2025 12/08/2024, 04/06/2021, 07/06/2020, Additional history exists Falls Risk Assessment 08/07/2025 08/07/2024 Hypertension/CHF/CAD Annual [...] 09/05/2021 Hepatitis C Screening Completed 11/28/2024, 018 Influenza Vaccine Completed 12/08/2024, , 12/29/2020, Additional history exists HIB Vaccines Aged Out No longer eligi [...] this topic Medical Devices Implanted Type Area 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 Device Identifier Shelf Expiration Date Model / Serial / Lot Kit Surgiflo W 2000 Units Ster Lyo - Sna - [id number] Implanted:Qty: 1 on 08/05/2024 by Mady Overton MD at [facility] Hemostasis N/A: Nose [employer] [id number] 12/16/2025 2994 / NA / [id number] Kit Surgiflo W 2000 Units Ster Lyo - Sna - [id number] Implanted:Qty: 1 on 08/05/2024 by Mady Overton MD at [facility] Hemostasis N/A: Nose [employer] [id number] 12/16/2025 2994 / NA / [id number] Duraseal Exact Spine Sealant 5ml W Applicator - Sna - [id number] Implanted:Qty: 1 on 08/05/2024 by Mady Overton MD at [facility] Hemostasis N/A: Nose [employer] 02/15/2025 [id number] / [id number] / [id number] Procedures Procedure Name Priority Date/Time Associated Diagnosis Comments PROSTATE SPECIFIC ANTIGEN SCREEN Routine 12/18/2024 10:44 AM EDT Urinary tract infection Elevated prostate specific antigen (PSA) MN PROTEIN ELECTROPHORETIC FRACTIONATION & QUANTITATION SERUM Routine [...] alkaline phosphatase level HEPATIC FUNCTION PANEL Routine 10:42 AM EDT Elevated alkaline phosphatase level CBC WITH AUTO DIFFERENTIAL Routine 09/29/2024 9:51 AM EDT Anemia, unspecified type CBC AND DIFFERENTIAL Routine 09/29/2024 9:51 AM EDT Anemia, unspecified type VITAMIN B12 AND FOLATE Routine 9:51 AM EDT Anemia, unspecified type IRON AND TIBC Routine 09/29/2024 9:51 AM EDT Anemia, unspecified type FERRITIN Routine 09/29/2024 9:51 AM EDT Anemia, unspecified type COMPREHENSIVE METABOLIC PANEL Routine 09/29/2024 9:51 AM EDT Hyperlipidemia, unspecified hyperlipidemia type LIPID PANEL WITH REFLEX TO DIRECT LDL Routine 09/29/2024 9:51 AM EDT Hyperlipidemia, unspecified hyperlipidemia type from Last 3 Months Results * (ABNORMAL) Prostate specific antigen screen (12/18/2024 10:44 AM EDT) PSA 17.19(H) 0.00 - 4.00 ng/mL LAB CHEMISTRY METHOD 12/18/2024 1:54 PM EDT [facility] Blood Venous blood specimen / Unknown Venipuncture / Unknown 12/18/2024 10:44 AM EDT 12/18/2024 10:44 AM EDT Narrative [facility] - 12/18/2024 1:54 PM EDT The Siemens Advia Centaur Chemiluminescent Immunoassay is used. Results obtained with different assay methods or kits cannot be used interchangeably. Results cannot be interpreted as absolute evidence of the presence or absence of malignant disease. us Andres Farfan MD LAB BLOOD ORDERABLES Final Re sult [facility] [address] [place] [address], [place] [phone] * PATHOLOGIST REVIEW PROTEIN ELECTROPHORESIS (12/08/2024 1:41 PM EDT) Pathologist [facility] Pathologist Interpretation Reviewed by Mellisa Otero MD 12/11/2024 1:30 PM EDT [facility] Blood Venous blood specimen / Unknown Venipuncture / Unknown 12/08/2024 1:41 PM EDT 12/08/2024 4:31 PM EDT Charito CHAIDEZ LAB BLOOD ORDERABLES Final Re sult [facility] [address] [place] [address], [place] [phone] * Thyroid stimulating hormone with reflex to free t4 and free t3 (12/08/2024 1:41 PM EDT) [facility] TSH 1.85 0.40 - 4.00 mcIU/mL LAB CHEMISTRY METHOD 12/08/2024 5:28 PM EDT [facility] Blood Venous blood specimen / Unknown Venipuncture / Unknown 12/08/2024 1:41 PM EDT 12/08/2024 4:31 PM EDT Charito CHAIDEZ LAB BLOOD ORDERABLES Final Re sult [facility] [address] [place] [address], [place] [phone] * (ABNORMAL) [place]-lambda free light chains, quantitative (12/08/2024 1:41 PM EDT) Pathologist [facility] [place] Free Light Chain 3.06(H) 0.33 - 1.94 mg/dL 12/11/2024 10:34 AM EDT [facility] Lambda Free Light Chain 1.43 0.57 - 2.63 mg/dL 12/11/2024 10:34 AM EDT [facility] [place]/Lambda FLC Ratio 2.14(H) 0.26 - 1.65 12/11/2024 10:34 AM EDT [facility] Comment: Test performed at [facility], [address] , [place] [address] Annalise Dill MD, PhD - Sr. Payroll Processor Blood Venous blood specimen / Unknown Venipuncture / Unknown 12/08/2024 1:41 PM EDT 12/08/2024 4:31 PM EDT Charito CHAIDEZ LAB BLOOD ORDERABLES Final Re sult [facility] [address] [address] * Hepatitis B virus molecular study quantitative (12/08/2024 1:41 PM EDT) Hepatitis B Virus DNA Qualitative Not detected Not detected 12/11/2024 11:13 AM EDT [facility] Hepatitis B Virus DNA, Quantitative <10 <10 IU/mL 12/11/2024 11:13 AM EDT [facility] Log Hepatitis B Virus DNA <1.00 <1.00 Log (10) IU/mL 12/11/2024 11:13 AM EDT [facility] Comment: This procedure utilizes a real-time polymerase chain reaction test from [employer]. The amplification target is a conserved region [...] not rule out infection. Test performed at [facility], [address] , [place] [address] Annalise Dill MD, PhD - Sr. Payroll Processor Blood Venous blood specimen / Unknown Venipuncture / Unknown 12/08/2024 1:41 PM EDT 12/08/2024 4:42 PM EDT us Sara CHAIDEZ LAB BLOOD ORDERABLES Final Resu lt [place] [address] * (ABNORMAL) CBC auto differential (12/08/2024 1:41 PM EDT) Only the most recent of2 resultswithin the time period is included. WBC 5.9 4.8 - 10.8 K/mcL LAB HEMETOLOGY METHOD 12/08/2024 4:44 PM EDT [facility] RBC 4.30(L) 4.50 - 5.50 M/mcL LAB HEMETOLOGY METHOD 12/08/2024 4:44 PM EDT [facility] Hemoglobin 11.9(L) 13.5 - 17.5 g/dL LAB HEMETOLOGY METHOD 12/08/2024 4:44 PM EDT [facility] Hematocrit 36.9(L) 42.0 - 54.0 % LAB HEMETOLOGY METHOD 12/08/2024 4:44 PM EDT [facility] MCV 85.8 79.0 - 98.0 FL LAB HEMETOLOGY METHOD 12/08/2024 4:44 PM EDT [facility] MCH 27.7 27.0 - 32.0 pcg LAB HEMETOLOGY METHOD 12/08/2024 4:44 PM EDT [facility] MCHC 32.2 32.0 - 37.0 g/dL LAB HEMETOLOGY METHOD 12/08/2024 4:44 PM EDT [facility] RDW 13.9 11.0 - 15.0 % LAB HEMETOLOGY METHOD 12/08/2024 4:44 PM EDT [facility] Platelets 264 130 - 400 K/mcL LAB HEMETOLOGY METHOD 12/08/2024 4:[address] [facility] MPV 9.6 7.0 - 11.0 FL LAB HEMETOLOGY METHOD 12/08/2024 4:[address] [facility] NRBC 0.0 <1.0 % LAB HEMETOLOGY METHOD 12/08/2024 4:[address] [facility] NRBC Absolute 0.00 <0.10 K/mcL LAB HEMETOLOGY METHOD 12/08/2024 4:[address] [facility] Neutrophils Relative 43.1 % LAB HEMETOLOGY METHOD 12/08/2024 4:[address] [facility] Lymphocytes Relative 47.6 % LAB HEMETOLOGY METHOD 12/08/2024 4:[address] [facility] Monocytes Relative 7.6 % LAB HEMETOLOGY METHOD 12/08/2024 4:[address] [facility] Eosinophils Relative 1.0 % LAB HEMETOLOGY METHOD 12/08/2024 4:[address] [facility] Basophils Relative 0.5 % LAB HEMETOLOGY METHOD 12/08/2024 4:[address] [facility] Immature Granulocytes Relative 0.2 % LAB HEMETOLOGY METHOD 12/08/2024 4:[address] [facility] Neutrophils Absolute 2.56 1.50 - 7.00 K/mcL LAB HEMETOLOGY METHOD 12/08/2024 4:[address] [facility] Lymphocytes Absolute 2.82 1.00 - 5.00 K/mcL LAB HEMETOLOGY METHOD 12/08/2024 4:[address] [facility] Monocytes Absolute 0.45 0.20 - 1.00 K/mcL LAB HEMETOLOGY METHOD 12/08/2024 4:[address] [facility] Eosinophils Absolute 0.06 0.00 - 0.50 K/mcL LAB HEMETOLOGY METHOD 12/08/2024 4:44 PM EDT [facility] Basophils Absolute 0.03 0.00 - 0.20 K/[facility] LAB HEMETOLOGY METHOD 12/08/2024 4:44 PM EDT [facility] Immature Granulocytes Absolute 0.01 0.00 - 0.03 K/[facility] LAB HEMETOLOGY METHOD 12/08/2024 4:44 PM EDT [facility] Blood Venous blood specimen / Unknown Venipuncture / Unknown 12/08/2024 1:41 PM EDT 12/08/2024 4:44 PM EDT Charito CHAIDEZ LAB BLOOD ORDERABLES Final Re sult [facility] [address] [place] [address], * Erythropoietin (12/08/2024 1:41 PM EDT) Erythropoietin 9.3 2.6 - 18.5 mIU/mL 12/11/2024 2:31 PM EDT [facility] Comment: Test performed at [facility], [address], [place] [address] Annalise Dill MD, PhD - Sr. Payroll Processor Blood Venous blood specimen / Unknown Venipuncture / Unknown 12/08/2024 1:41 PM EDT 12/08/2024 4:31 PM EDT Charito CHAIDEZ LAB BLOOD ORDERABLES Final Re sult [facility] [address] [place] [address] * (ABNORMAL) Reticulocyte count (12/08/2024 1:41 PM EDT) Retic Ct Abs 0.080 0.030 - 0.090 M/[facility] HEMETOLOGY METHOD 12/08/2024 4:44 PM EDT [facility] Retic Ct Pct 1.8(H) 0.7 - 1.7 % LAB HEMETOLOGY METHOD 12/08/2024 4:44 PM EDT [facility] Immature Retic Fract 13.2 2.3 - 15.9 % LAB HEMETOLOGY METHOD 12/08/2024 4:44 PM EDT [facility] Reticulocyte Hemoglobin 31.6 >29.0 pcg LAB HEMETOLOGY METHOD 12/08/2024 4:44 PM EDT [facility] Blood Venous blood specimen / Unknown Venipuncture / Unknown 12/08/2024 1:41 PM EDT 12/08/2024 4:44 PM EDT us Charito CHAIDEZ LAB BLOOD ORDERABLES Final Re sult [facility] [address] [place] [address], * (ABNORMAL) Protein electrophoresis, serum (12/08/2024 1:41 PM EDT) Total Protein 8.1(H) 6.0 - 8.0 g/dL LAB CHEMISTRY METHOD 12/11/2024 1:30 PM EDT [facility] Albumin, Serum 4.0 2.9 - 4.1 g/dL LAB CHEMISTRY METHOD 12/11/2024 1:30 PM EDT [facility] Alpha 1 Globulin (g/dL) 0.2 0.1 - 0.5 g/dL LAB CHEMISTRY METHOD 12/11/2024 1:30 PM EDT [facility] Alpha 2 Globulin (g/dL) 0.9 0.7 - 1.5 g/dL LAB CHEMISTRY METHOD 12/11/2024 1:30 PM EDT [facility] Beta (g/dL) 1.2 0.7 - 1.5 g/dL LAB CHEMISTRY METHOD 12/11/2024 1:30 PM EDT [facility] Gamma Globulin (g/dL) 1.8 0.7 - 1.9 g/dL LAB CHEMISTRY METHOD 12/11/2024 1:30 PM EDT [facility] SPEP Interpretation No M-Cesar seen. Essentially normal pattern. LAB CHEMISTRY METHOD 12/11/2024 1:30 PM EDT [facility] Blood Venous blood specimen / Unknown Venipuncture / Unknown 12/08/2024 1:41 PM EDT 12/08/2024 4:31 PM EDT Charito CHAIDEZ LAB BLOOD ORDERABLES Final Re sult [facility] [address] [place] [address], [place] [phone] * Protein, total (12/08/2024 1:41 PM EDT) Total Protein 8.0 6.0 - 8.0 g/dL LAB CHEMISTRY METHOD 12/08/2024 4:57 PM EDT [facility] Blood Venous blood specimen / Unknown Venipuncture / Unknown 12/08/2024 1:41 PM EDT 12/08/2024 4:31 PM EDT Charito CHAIDEZ LAB BLOOD ORDERABLES Final Re sult [facility] [address] [place] [address], [place] [phone] * Lactate dehydrogenase (12/08/2024 1:41 PM EDT) LDH 221 120 - 246 unit/L LAB CHEMISTRY METHOD 12/08/2024 5:13 PM EDT [facility] Blood Venous blood specimen / Unknown Venipuncture / Unknown 12/08/2024 1:41 PM EDT 12/08/2024 4:31 PM EDT Charito CHAIDEZ LAB BLOOD ORDERABLES Final Re sult Performing Organization Address City/[facility]/ZIP Co de Phone Number [facility] [address] [place] [address], [place] [phone] * Haptoglobin (12/08/2024 1:41 PM EDT) Pathologist [facility] Haptoglobin 82 16 - 200 mg/dL LAB CHEMISTRY METHOD 12/08/2024 5:16 PM EDT [facility] Blood Venous blood specimen / Unknown Venipuncture / Unknown 12/08/2024 1:41 PM EDT 12/08/2024 4:31 PM EDT Charito CHAIDEZ LAB BLOOD ORDERABLES Final Re sult Performing Organization Address City/[facility]/ZIP Co de Phone Number [facility] [address] [place] [address], [place] [phone] * (ABNORMAL) Comprehensive metabolic panel (12/08/2024 1:41 PM EDT) Only the most recent of2 resultswithin the time period is included. Pathologist [facility] Sodium 140 133 - 145 mmol/L LAB CHEMISTRY METHOD 12/08/2024 5:16 PM EDT [facility] Potassium 4.5 3.5 - 5.5 mmol/L LAB CHEMISTRY METHOD 12/08/2024 5:16 PM EDT [facility] Chloride 106 96 - 110 mmol/L LAB CHEMISTRY METHOD 12/08/2024 5:16 PM EDT [facility] CO2 31 21 - 32 mmol/L LAB CHEMISTRY METHOD 12/08/2024 5:16 PM EDT [facility] Anion Gap 3 3 - 11 LAB CHEMISTRY METHOD 12/08/2024 5:16 PM EDT [facility] Glucose 97 70 - 100 mg/dL LAB CHEMISTRY METHOD 12/08/2024 5:[address] [facility] BUN 17 5 - 25 mg/dL LAB CHEMISTRY METHOD 12/08/2024 5:[address] [facility] Creatinine 1.16 0.70 - 1.30 mg/dL LAB CHEMISTRY METHOD 12/08/2024 5:[address] [facility] eGFR 67 >=60 mL/min/1. 73m2 LAB CHEMISTRY METHOD 12/08/2024 5:[address] [facility] Comment:Calculation based on the Chronic Kidney Disease Epidemiology Collaboration (CKD-EPI) equation refit without adjustment for race. BUN/Creatinine Ratio 14.7 LAB CHEMISTRY METHOD 12/08/2024 5:[address] [facility] Calcium 9.4 8.5 - 10.5 mg/dL LAB CHEMISTRY METHOD 12/08/2024 5:[address] [facility] AST (SGOT) 24 10 - 42 unit/L LAB CHEMISTRY METHOD 12/08/2024 5:[address] [facility] ALT (SGPT) 25 10 - 60 unit/L LAB CHEMISTRY METHOD 12/08/2024 5:[address] [facility] Alkaline Phosphatase 113 42 - 121 unit/L LAB CHEMISTRY METHOD 12/08/2024 5:[address] [facility] Total Protein 8.1(H) 6.0 - 8.0 g/dL LAB CHEMISTRY METHOD 12/08/2024 5:[address] [facility] Albumin 4.2 3.2 - 5.0 g/dL LAB CHEMISTRY METHOD 12/08/2024 5:[address] [facility] Total Bilirubin 0.4 0.0 - 1.4 mg/dL LAB CHEMISTRY METHOD 12/08/2024 5:[address] [facility] Blood Venous blood specimen / Unknown Venipuncture / Unknown 12/08/2024 1:41 PM EDT 12/08/2024 4:31 PM EDT us Charito CHAIDEZ LAB BLOOD ORDERABLES Final Re sult Performing Organization Address [facility]/ZIP Co de Phone Number [facility] [address] [place] [address], [place] [phone] * AST, ALT, Bilirubin ELR state reportables (11/28/2024 10:42 AM EDT) Pathologist [facility] ALT (SGPT) 20 10 - 60 unit/L LAB CHEMISTRY METHOD 11/28/2024 3:55 PM EDT [facility] AST (SGOT) 19 10 - 42 unit/L LAB CHEMISTRY METHOD 11/28/2024 3:55 PM EDT [facility] Bilirubin, Direct 0.1 0.0 - 0.3 mg/dL LAB CHEMISTRY METHOD 11/28/2024 3:55 PM EDT [facility] Total Bilirubin 0.3 0.0 - 1.4 mg/dL LAB CHEMISTRY METHOD 11/28/2024 3:55 PM EDT [facility] Blood Venous blood specimen / Unknown Venipuncture / Unknown 11/28/2024 10:42 AM EDT 11/28/2024 12:43 PM EDT Sara CHAIDEZ LAB BLOOD ORDERABLES Final Resu lt [facility] [address] [place] [address], [place] [phone] * (ABNORMAL) Hepatitis A antibody total with reflex IgM (11/28/2024 10:42 AM EDT) Hep A Total Ab Positive( A) Negative LAB CHEMISTRY METHOD 11/28/2024 3:49 PM EDT [facility] Blood Venous blood specimen / Unknown Venipuncture / Unknown 11/28/2024 10:42 AM EDT 11/28/2024 12:43 PM EDT Narrative [facility] - 11/28/2024 3:49 PM EDT Over the counter supplements containing high doses of biotin may interfere with this assay. If interference is suspected, patients shoud be retested after refraining from biotin supplements for 72 hours. Sara Montes De Oca [place] LAB BLOOD ORDERABLES Final Resu lt Performing Organization Address City/[facility]/ZIP Co de Phone Number [facility] [address] [place] [address], [place] [phone] * (ABNORMAL) Hepatitis B screening panel (11/28/2024 10:42 AM EDT) [facility] Hepatitis B Surface Ag Negative Negative LAB CHEMISTRY METHOD 11/28/2024 3:49 PM EDT [facility] Hep B Core Total Ab Positive(A) Negative LAB CHEMISTRY METHOD 11/28/2024 3:49 PM EDT [facility] Hepatitis B Surface Ab Positive(A) Negative LAB CHEMISTRY METHOD 11/28/2024 3:49 PM EDT [facility] Blood Venous blood specimen / Unknown Venipuncture / Unknown 11/28/2024 10:42 AM EDT 11/28/2024 12:43 PM EDT Sara CHAIDEZ LAB BLOOD ORDERABLES Final Resu lt Performing Organization Address City/[facility]/ZIP Co de Phone Number [facility] [address] [place] [address], [place] [phone] * Hepatitis C virus quantitative molecular study (11/28/2024 10:42 AM EDT) [facility] HCV Qual Interp Not Detected Not Detected LAB MOLECULAR DIAGNOSTICS METHOD 12/02/2024 11:18 AM EDT [facility] Comment:HCV RNA not detected , unable to report quantitative results. Blood Venous blood specimen / Unknown Venipuncture / Unknown 11/28/2024 10:42 AM EDT 11/28/2024 12:43 PM EDT Sara CHAIDEZ LAB BLOOD ORDERABLES Final Resu lt Performing Organization Address [facility] de Phone Number [facility] [address] [place] [address], * Hepatitis A antibody IgM (11/28/2024 10:42 AM EDT) Hepatitis A Antibody IgM Negative Negative LAB CHEMISTRY METHOD 11/28/2024 5:40 PM EDT [facility] Blood Venous blood specimen / Unknown Venipuncture / Unknown 11/28/2024 10:42 AM EDT 11/28/2024 12:43 PM EDT Narrative [facility] - 11/28/2024 5:40 PM EDT Over the counter supplements containing high doses of biotin may interfere with this assay. If interference is suspected, patients shoud be retested after refraining from biotin supplements for 72 hours. us Sraa CHAIDEZ LAB BLOOD ORDERABLES Final Resu lt Performing Organization Address [facility] de Phone Number [facility] [address] [place] [address], * Antimitochondrial antibody (11/28/2024 10:42 AM EDT) Pathologist [facility] Mitochondrial Antibody Quantitative 4.1 <=20.0 units LAB CHEMISTRY METHOD 12/03/2024 12:31 PM EDT [facility] Mitochondrial Antibody Qualitative Negative Negative LAB CHEMISTRY METHOD 12/03/2024 12:31 PM EDT [facility] Blood Venous blood specimen / Unknown Venipuncture / Unknown 11/28/2024 10:42 AM EDT 11/28/2024 12:43 PM EDT [facility] [place] LAB BLOOD ORDERABLES Final Resu lt Performing Organization Address City/[facility]/ZIP Co de Phone Number [facility] [address] [place] [address], [place] [phone] * GGT (11/28/2024 10:42 AM EDT) GGT 43 7 - 64 unit/L LAB CHEMISTRY METHOD 11/28/2024 1:54 PM EDT [facility] Blood Venous blood specimen / Unknown Venipuncture / Unknown 11/28/2024 10:42 AM EDT 11/28/2024 12:43 PM EDT Sara Montes De [place] LAB BLOOD ORDERABLES Final Resu lt Performing Organization Address [facility]/ZIP Co de Phone Number [facility] [address] [place] [address], [place] [phone] * (ABNORMAL) Hepatic function panel (11/28/2024 10:42 AM EDT) Pathologist [facility] Total Protein 9.1(H) 6.0 - 8.0 g/dL LAB CHEMISTRY METHOD 11/28/2024 2:10 PM EDT [facility] Albumin 4.6 3.2 - 5.0 g/dL LAB CHEMISTRY METHOD 11/28/2024 2:10 PM EDT [facility] Total Bilirubin 0.3 0.0 - 1.4 mg/dL LAB CHEMISTRY METHOD 11/28/2024 2:10 PM EDT [facility] Bilirubin, Direct 0.1 0.0 - 0.3 mg/dL LAB CHEMISTRY METHOD 11/28/2024 2:10 PM EDT [facility] Bilirubin, Indirect 0.2 0.0 - 1.1 mg/dL LAB CHEMISTRY METHOD 11/28/2024 2:10 PM EDT [facility] ALT (SGPT) 20 10 - 60 unit/L LAB CHEMISTRY METHOD 11/28/2024 2:10 PM EDT [facility] AST (SGOT) 19 10 - 42 unit/L LAB CHEMISTRY METHOD 11/28/2024 2:10 PM EDT [facility] Alkaline Phosphatase 125(H) 42 - 121 unit/L LAB CHEMISTRY METHOD 11/28/2024 2:10 PM EDT [facility] Blood Venous blood specimen / Unknown Venipuncture / Unknown 11/28/2024 10:42 AM EDT 11/28/2024 12:43 PM EDT Sara CHAIDEZ LAB BLOOD ORDERABLES Final Resu lt Performing Organization Address [facility]/ZIP Co de Phone Number [facility] [address] [place] [address], [place] [phone] * Vitamin B12 and folate (09/29/2024 9:51 AM EDT) Pathologist [facility] Vitamin B-12 486 250 - 900 pcg/mL LAB CHEMISTRY METHOD 09/29/2024 8:47 PM EDT [facility] Folate 10.1 2.8 - 17.0 ng/ml LAB CHEMISTRY METHOD 09/29/2024 8:47 PM EDT [facility] Blood Venous blood specimen / Unknown Venipuncture / Unknown 09/29/2024 9:51 AM EDT 09/29/2024 9:51 AM EDT Paul Cee MD LAB BLOOD ORDERABLES Nirmala l Result [facility] [address] [place] [address], [place] [phone] * Lipid panel with reflex to direct LDL (09/29/2024 9:51 AM EDT) Cholesterol 158 0 - 200 mg/dL LAB CHEMISTRY METHOD 09/29/2024 8:47 PM EDT [facility] Triglycerides 57 0 - 150 mg/dL LAB CHEMISTRY METHOD 09/29/2024 8:47 PM EDT [facility] HDL 48 >=40 mg/dL LAB CHEMISTRY METHOD 09/29/2024 8:47 PM EDT [facility] LDL Calculated 99 0 - 100 mg/dL LAB CHEMISTRY METHOD 09/29/2024 8:47 PM EDT [facility] VLDL Cholesterol Al 11.4 mg/dL LAB CHEMISTRY METHOD 09/29/2024 8:47 PM EDT [facility] Non HDL Chol. (LDL+VLDL) 110 <145 mg/dL LAB CHEMISTRY METHOD 09/29/2024 8:47 PM T [facility] Chol/HDL Ratio 3.3 0.0 - 4.4 LAB CHEMISTRY METHOD 09/29/2024 8:47 PM EDT [facility] Blood Venous blood specimen / Unknown Venipuncture / Unknown 09/29/2024 9:51 AM EDT 09/29/2024 9:51 AM EDT Paul Cee MD LAB BLOOD ORDERABLES Nirmala tanner Result [facility] [address] [place] [address], * Iron and TIBC (09/29/2024 9:51 AM EDT) Iron 72 50 - 160 mcg/dL LAB CHEMISTRY METHOD 09/29/2024 8:47 PM EDT [facility] TIBC 318 250 - 450 mcg/dL LAB CHEMISTRY METHOD 09/29/2024 8:47 PM EDT [facility] Iron Saturation 23 20 - 50 % LAB CHEMISTRY METHOD 09/29/2024 8:47 PM EDT [facility] Blood Venous blood specimen / Unknown Venipuncture / Unknown 09/29/2024 9:51 AM EDT 09/29/2024 9:51 AM EDT Paul Cee MD LAB BLOOD ORDERABLES Nirmala l Result [facility] [address] [place] [address], [place] [phone] * Ferritin (09/29/2024 9:51 AM EDT) [facility] Ferritin 180 26 - 388 ng/mL LAB CHEMISTRY METHOD 09/29/2024 8:47 PM EDT [facility] Blood Venous blood specimen / Unknown Venipuncture / Unknown 09/29/2024 9:51 AM EDT 09/29/2024 9:51 AM EDT Paul Cee MD LAB BLOOD ORDERABLES Nirmala l Result Performing Organization Address City/[facility]/ZIP Co de Phone Number [facility] [address] [place] [address], [place] [phone] from Last 3 Months Insurance MEDICARE [facility] Advance Directives Documents on File Type Date Recorded Patient Supervisory Forester Expl anation Advance Directives and Living Will 04/30/2024 10:51 AM [facility] Health Care Proxy * Full Code - [...] First Alternate Health Care Agent Care Teams Ball Assembler Relationship Specialty Start Date End Date Ronna Castano MD [address] [facility] [place] [place] [phone] PCP - General Internal Medicine 12/18/24
--- OUTSIDE RECORDS SUMMARY | 2024-12-23 16:01 | XMS_ITS | Encounter Summary ---
Author Organization [facility] Address [address] [place] [address] Care Team Providers Care Water Resources Project Manager Name Role Phone Luis Monzon MD Primary Care Provider [facility] Paul Cee MD Primary Care Provider [phone] [phone] Encounter Details Date Type Department Care Team Description 09/23/2012 Mental Health Clinician Report Medical Records [address] [place] [address] Myron Maldonado MD Social History Tobacco Use [...] on filedocumented in this encounter Care Teams Water Resources Project Manager Relationship Specialty Start Date End Date Luis Monzon MD PCP - General 03/19/1995 05/01/17 Paul Cee MD [address] [place] [address] PCP - General Internal Medicine 05/02/17 documented as of this encounter
--- OUTSIDE RECORDS SUMMARY | 2024-12-23 16:01 | XMS_ITS | Encounter Summary ---
Author Organization [facility] Address [address] [place] [address] Care Team Providers Care Bonded Strand Operator Name Role Phone Luis Monzon MD Primary Care Provider [facility] Paul Cee MD Primary Care Provider [phone] [phone] Reason for Visit * Reason Onset Date Comments Form 12/17/2015 [facility] Encounter Details Date Type Department Care Team Description 12/17/2015 Telephone Adult Medicine - [address] [address] Luis Monzon MD Form ([facility]) Social History Tobacco Use Types Packs/Day Years Used Date Smoking Tobacco: Never Smokeless Tobacco: Never Alcohol Use Standard Drinks/Week Comments No 0 (1 standard drink = 0.6 oz pur e alcohol) Sex Assigned at Date Recorded Not on file documented as of this encounter Miscellaneous Notes * Telephone Encounter - Umesh Shin - 12/17/2015 12:49 PM EDT Please see encounter from 10/19/15. Pt states FMLA has some missing info. Asking if pcp can complete all info needed. Needs before 12/28/15 documented in this encounter Plan of Treatment Not on file documented as of this encounter Visit Diagnoses Not on filedocumented in this encounter Care Teams Bonded Strand Operator Relationship Specialty Start Date End Date Luis Monzon MD PCP - General 03/19/1995 05/01/17 Paul Cee MD [address] [place] [address] PCP - General Internal Medicine 05/02/17 documented as of this encounter
--- OUTSIDE RECORDS SUMMARY | 2024-12-23 16:01 | XMS_ITS | Encounter Summary ---
Author Organization [facility] Address [address] [place] [address] Care Team Providers Care Check Cashier Name Role Phone Luis Monzon MD Primary Care Provider Unavail able Paul Cee MD Primary Care Provider +1 [phone] Encounter Details Date Type Department Care Team Description 11/03/2010 Document Reviewer Report Medical Records [address] [place] [address] Toby Baugh MD Social History Tobacco Use [...] on filedocumented in this encounter Care Teams Check Cashier Relationship Specialty Start Date End Date Luis Monzon MD PCP - General 03/19/1995 05/01/17 Paul Cee MD [address] [place] [address] PCP - General Internal Medicine 05/02/17 documented as of this encounter
--- OUTSIDE RECORDS SUMMARY | 2024-12-23 16:01 | XMS_ITS | Encounter Summary ---
Author Organization [facility] Address [address] [place] [address] Care Team Providers Care Caster Operator Name Role Phone Paul Cee MD Primary Care Provider [phone] [phone] Encounter Details Date Type Department Care Team Description 06/13/2017 Second Miller Report Medical Records [address] [place] [address] Abstract, Provider Social History Tobacco Use Types [...] on filedocumented in this encounter Care Teams Caster Operator Relationship Specialty Start Date End Date Paul Cee MD [address] [place], [place] [id number] PCP - General Internal Medicine 05/02/17 documented as of this encounter
--- OUTSIDE RECORDS SUMMARY | 2024-12-23 16:01 | XMS_ITS | Clinical Summary ---
Author Organization [facility] Address [address] [place] [address] Care Team Providers Care Office Nurse Name Role Phone Paul Cee MD Primary Care Provider [phone] [phone] Allergies Active Allergy Reactions Severity Noted Date Comments Oxycodone-Acetaminophen Nausea and Vomiting Medications Medication Sig Dispensed Refills Start Date End Date Status Multiple Vitamin (MULTI VITAMIN MENS OR) Take by mouth. 0 Active Diclofenac Sodium 1 % Gel Apply 1 g topically 2 times daily as needed (joint pains). 200 g 1 09/22/2022 Active atorvastatin (LIPITOR) 40 MG tabletIndications:Hype rlipidemia, unspecified hyperlipidemia type Take 1 Tablet by mouth daily. 90 Tablet 1 06/04/2023 Active amlodipine (NORVASC) 10 MG tabletIndications:Prim shar hypertension Take 1 Tablet by mouth daily. 90 Tablet 1 08/06/2023 Active Active Problems Problem Noted Date HTN (hypertension) 10/01/2018 Testicular pain 05/06/2017 Overview: Urology (05/04/17): cont doxycycline, instructed to take ibuprofen. Will f/u with Dr Maldonado in may for prostate MRI and PSA. Repeat testicular US in 2 weeks. Hyperlipidemia 01/11/2011 Syncope and collapse 03/10/2008 Overview: 03/03/08 Benign prostatic hyperplasia 03/10/2008 Overview: Urology (06/13/17): his right scrotal symptoms resolution, [...] Mcnally; elevated PSA; biopsied multiple times negative Immunizations Name Administration Dates Next Due COVID-19 (Pfizer) 06/09/2020 COVID-19 (Pfizer) Pt Reported 04/06/2021, 021 Cholera 05/01/1990 Hepatitis-A (>19YRS) 06/29/2010,10/26/2009 Influenza (> 6 Months) 02/03/2016,2014,12/28/2011,12/27,04/01/2010,03/10/2008 Influenza Flu (PT Reported) 12/29/2020 Influenza vaccine high dose age 65 and over 12/01/2022,01/07/2019,02/01/2018,12/28 Meningococcal (MENOMUNE) 06/09/1997 Meningococcal (Menactra) 06/09/1997 PREVNAR 20 09/22/2022 Pneumococcal Conjugate PCV-13 09/05/2021 Polio (IPV) 10/26/2009 Tdap 11/13/2013,01/11/2011 Tdap (Adacel) 11/13/2013 Typhoid 11/13/2013,10/30/2011,10/26/2009 Yellow Fever Vaccine 10/26/2009,06/09/1997 Family History Medical History Relation Name Comments Asthma Brother neg Other Relation Name Status Comments Brother Other Social History Tobacco Use Types Packs/Day Years Used Date Smoking Tobacco: Never Smokeless Tobacco: Never Alcohol Use Standard Drinks/Week Comments No 0 (1 standard drink = 0.6 oz pur e alcohol) Sex Assigned at Date Recorded Not on file Last Filed Vital Signs Vital Sign Reading Time Taken Comments Blood Pressure 124/70 08/06/2023 9:21 AM EDT Pulse 68 08/06/2023 9:08 AM EDT Temperature 35.7 C (96.3 F) 12/01/2022 8:08 AM EDT Respiratory Rate 18 09/22/2022 4:01 PM EDT Oxygen Saturation 98% 01/02/2022 2:27 PM EDT Inhaled Oxygen Concentration - - Weight 79.1 kg (174 lb 6.4 oz) 08/06/2023 9:08 A M EDT Height 177.8 cm (5' 10 ) 08/06/2023 9:08 AM EDT Body Mass Index 25.02 08/06/2023 9:08 AM EDT Plan of Treatment Health Maintenance Due Date Last Done Comments SHINGLES VACCINE (1 of 2) 11/03/2001 DTAP/TDAP/TD (4 - Td or Tdap) 11/14/2023, 11/13/2013, 01/11/2011 BMI CHECK/ADVISE 03/19/2024 06/19/2023 (Com pleted), 09/22/2022 (Completed), 09/29/2021, Additional history exists Covid-19 Vaccine ( - 2022-2 4 season) 2024 04/06/2021, 07/06/2020, 06/09/2020 INFLUENZA (#1) 2024 12/01/2022, 12/17, 01/07/2019, Additional history exists CHOLESTEROL SCREENING 09/23/2027 09/22/2022 , 09/16/2021, 04/26/2021, Additional history exists COLON CANCER SCREENING 09/14/2031 , 02/23/2011, 02/23/2011 HEPATITIS C SCREENING Completed 05/03/2017 PNEUMOCOCCAL VACCINE Completed 09/22/2022, 09/06/19 22 Care Teams Office Nurse Relationship Specialty Start Date End Date Paul Cee MD [address] [place] [address] PCP - General Internal Medicine 05/02/17
--- OUTSIDE RECORDS SUMMARY | 2024-12-23 16:01 | XMS_ITS | Encounter Summary ---
Author Organization [facility] Address [address] [place] [address] Care Team Providers Care Practical Nurse Name Role Phone Paul Cee MD Primary Care Provider [phone] [phone] Encounter Details Date Type Department Care Team Description 01/19/2023 [facility] Medical Records [address] [place] [address] Abstract, Provider Social History Tobacco Use Types [...] on filedocumented in this encounter Care Teams Practical Nurse Relationship Specialty Start Date End Date Paul Cee MD [address] [place], [place] [phone] PCP - General Internal Medicine 05/02/17 documented as of this encounter
--- OUTSIDE RECORDS SUMMARY | 2024-12-23 16:01 | XMS_ITS | Encounter Summary ---
Author Organization [facility] Address [address] [place] [address] Care Team Providers Care Bench Lathe Operator Name Role Phone Paul Cee MD Primary Care Provider [phone] [phone] Encounter Details Date Type Department Care Team Description 04/16/2018 Release of Information Medical Records [address] [place] [address] Abstract, Provider Social History Tobacco Use Types [...] on filedocumented in this encounter Care Teams Bench Lathe Operator Relationship Specialty Start Date End Date Paul Cee MD [address] [place] [address] PCP - General Internal Medicine 05/02/17 documented as of this encounter
--- OUTSIDE RECORDS SUMMARY | 2024-12-23 16:01 | XMS_ITS | Encounter Summary ---
Author Organization [facility] Address [address] [place] [address] Care Team Providers Care Financial Services Specialist Name Role Phone Luis Monzon MD Primary Care Provider Unavail able Paul Cee MD Primary Care Provider [phone] -[phone] Encounter Details Date Type Department Care Team Description 04/07/2013 Personnel Administrator Report Medical Records [address] [place] [address] Toby Baugh MD Social History Tobacco Use [...] on filedocumented in this encounter Care Teams Financial Services Specialist Relationship Specialty Start Date End Date Luis Monzon MD PCP - General 03/19/1995 05/01/17 Paul Cee MD [address] [place] [address] PCP - General Internal Medicine 05/02/17 documented as of this encounter
--- OUTSIDE RECORDS SUMMARY | 2024-12-23 16:01 | XMS_ITS | Encounter Summary ---
Author Organization [facility] Address [address] [place] [address] Care Team Providers Care Wind Farm Designer Name Role Phone Luis Monzon MD Primary Care Provider Unavail able Paul Cee MD Primary Care Provider [phone] -[phone] Encounter Details Date Type Department Care Team Description 06/15/2014 Cardiology Consultant Report Medical Records [address] [place] [address] Toby Baugh MD Social History Tobacco Use [...] on filedocumented in this encounter Care Teams Wind Farm Designer Relationship Specialty Start Date End Date Luis Monzon MD PCP - General 03/19/1995 05/01/17 Paul Cee MD [address] [place] [address] PCP - General Internal Medicine 05/02/17 documented as of this encounter
--- OUTSIDE RECORDS SUMMARY | 2024-12-23 16:01 | XMS_ITS | Encounter Summary ---
Author Organization [facility] Address [address] [place] [address] Care Team Providers Care Linotype Worker Name Role Phone Paul Cee MD Primary Care Provider +1 [phone] Encounter Details Date Type Department Care Team Description 04/10/2022 Paver Installer Report Medical Records [address] [place] [address] [place] Social History Tobacco [...] on filedocumented in this encounter Care Teams Linotype Worker Relationship Specialty Start Date End Date Paul Cee MD [address] [place] [address] PCP - General Internal Medicine 05/02/17 documented as of this encounter
--- OUTSIDE RECORDS SUMMARY | 2024-12-23 16:01 | XMS_ITS | Encounter Summary ---
Author Organization [facility] Address [address] [place] [address] Care Team Providers Care Sheet Metal Welder Name Role Phone Paul Cee MD Primary Care Provider [phone] [phone] Encounter Details Date Type Department Care Team Description 10/23/2019 Parcel Post Delivery Report Medical Records [address] [place] [address] Mryon Maldonado MD Social History Tobacco Use Types [...] on filedocumented in this encounter Care Teams Sheet Metal Welder Relationship Specialty Start Date End Date Paul Cee MD [address] [place] [address] PCP - General Internal Medicine 05/02/17 documented as of this encounter
--- OUTSIDE RECORDS SUMMARY | 2024-12-23 16:01 | XMS_ITS | Encounter Summary ---
Author Organization [facility] Address [address] [place] [address] Care Team Providers Care Piston Maker Name Role Phone Luis Monzon MD Primary Care Provider Unavail able Paul Cee MD Primary Care Provider [phone] -[phone] Encounter Details Date Type Department Care Team Description 12/04/2013 Seal Delivery Vehicle Officer Report Medical Records [address] [place] [address] Julisa Ordoñez PA-C Social History Tobacco Use Types Packs/Day Years Used Date Smoking Tobacco: Never Alcohol Use Standard Drinks/Week Comments No 0 (1 standard drink = 0.6 oz pur e alcohol) Sex Assigned at Date Recorded Not on file documented as of this encounter Plan of Treatment Not on file documented as of this encounter Visit Diagnoses Not on filedocumented in this encounter Care Teams Piston Maker Relationship Specialty Start Date End Date Luis Monzon MD PCP - General 03/19/1995 05/01/17 Paul Cee MD [address] [place] [address] PCP - General Internal Medicine 05/02/17 documented as of this encounter
--- OUTSIDE RECORDS SUMMARY | 2024-12-23 16:02 | XMS_ITS | Clinical Summary ---
Author Organization [facility] Address [address] [place] [address] Phone Care Team Providers Care Customer Field Representative Name Role Phone Luis Monzon MD Primary [...] & B [facility] MEDIC[facility] [facility] [place]: [facility] [id number] [place] [id number] MEDICARE PART A & B [facility] MEDICARE ENH[place] [facility] [place] [place] Address: [facility] [id number] [place] [address] MEDICARE PART A & B [facility] MEDICARE ENHANCE SUPPLEMENT MEDICARE PART A & B [facility] MEDICARE ENHANCE SUPPLEMENT MEDICARE PART A & B [facility] MEDICARE ENHANCE SUPPLEMENT MEDICARE PART A & B [facility] MEDICARE ENHANCE [facility] [place] [place] Address: [facility] [id number] [place] [id number] MEDICARE PART A & B [facility] MEDICARE ENHANCE [place]MENT [facility] [place] [place] Address: [facility] [id number] [place] [address] MEDICARE PART A & B [facility] MEDICARE ENHANCE SUPPLEMENT MEDICARE PART A & B Care Teams Customer Field Representative Relationship Specialty Start Date End Date Luis Monzon MD PCP - General 09/16/13 Additional Source Comments The information contained in this document represents components of the legal health record. It is not the complete legal health record.[facility]
--- OUTSIDE RECORDS SUMMARY | 2024-12-23 16:02 | XMS_ITS | Encounter Summary ---
Author Organization [facility] Address [address] [place] [address] Care Team Providers Care Activities Director Name Role Phone Luis Monzon MD Primary Care Provider Unavail able Paul Cee MD Primary Care Provider [phone] -[phone] Encounter Details Date Type Department Care Team Description 08/30/2016 Service And Repair Supervisor Report Medical Records [address] [place] [address] Lia Donis PA-C Social History Tobacco Use Types Packs/Day [...] on filedocumented in this encounter Care Teams Activities Director Relationship Specialty Start Date End Date Luis Monzon MD PCP - General 03/19/1995 05/01/17 Paul Cee MD [address] [place] [address] PCP - General Internal Medicine 05/02/17 documented as of this encounter
--- OUTSIDE RECORDS SUMMARY | 2024-12-23 16:02 | XMS_ITS | Encounter Summary ---
Author Organization [facility] Address [address] [place] [address] Care Team Providers Care Licensed Club Manager Name Role Phone Luis Monzon MD Primary Care Provider Unavail able Paul Cee MD Primary Care Provider +1 -[phone] Encounter Details Date Type Department Care Team Description 02/22/2016 Release of Information Medical Records [address] [place] [address] Abstract, Provider Social History Tobacco Use Types [...] on filedocumented in this encounter Care Teams Licensed Club Manager Relationship Specialty Start Date End Date Luis Monzon MD PCP - General 03/19/1995 05/01/17 Paul Cee MD [address] [place] [address] PCP - General Internal Medicine 05/02/17 documented as of this encounter
--- OUTSIDE RECORDS SUMMARY | 2024-12-23 16:02 | XMS_ITS | Encounter Summary ---
Author Organization [facility] Address [address] [place] [address] Care Team Providers Care Tmd Teacher Assistant Name Role Phone Paul Cee MD Primary Care Provider +1 -[phone] Encounter Details Date Type Department Care Team Description 05/04/2017 Dray Driver Report Medical Records [address] [place] [address] Cookie Vicente PA Social History Tobacco Use Types Packs/Day Years [...] on filedocumented in this encounter Care Teams Tmd Teacher Assistant Relationship Specialty Start Date End Date Paul Cee MD [address] [place] [address] PCP - General Internal Medicine 05/02/17 documented as of this encounter
== END 2024-12-23 14:42 | disposition home or self-care (01) ==
LOC: HO.HUSH 13:04
PROVIDERS: PCP Internal Medicine; Visit Provider Urology
DX: N40.1 Benign prostatic hyperplasia with lower urinary tract symptoms (principal); N13.8 Other obstructive and reflux uropathy; R97.20 Elevated prostate specific antigen [PSA]
CPT/HCPCS: 99214

== ENCOUNTER → 2024-12-23 13:04 | Outpatient (BNVA) | payer MEDICARE, OTHER, SELFPAY | PROVIDERS: PCP Internal Medicine; Visit Provider Urology | DX: N40.1 Benign prostatic hyperplasia with lower urinary tract symptoms (principal); N13.8 Other obstructive and reflux uropathy; R97.20 Elevated prostate specific antigen [PSA] | CPT/HCPCS: 51798; 81003; 99212 ==

== ENCOUNTER 2025-03-02 11:05 | Day surgery (SDC) | payer MEDICARE, OTHER, SELFPAY ==
--- OUTSIDE RECORDS SUMMARY | 2025-02-06 12:24 | XMS_ITS | Data Portability ---
Author Organization [place] [facility] Allergy Address [address] [address] Care Team Providers Care Office Associate Name Role Phone JOSÉ AGUILLONTHIK Primary Care Provider Assessment Encounter Date Assessment [...] By Organization Details Last Modified Time 11/07/[id number] Overton, the neurosurgeon, [...] [address], [place] [id number] Not Available [facility] [address] [facility], [place], [address], 08/08/2024 13:11:22 08/06/19 25 08/05/2024 TISSU E [...] on 2024 at 1:08 PM Not Available [facility] [address] [facility], [place], [address], 08/08/2024 13:11:22 08/06/19 25 08/05/2024 TISSU E EXAM comment Ki67 labeli ng index is >1%. [facility] for exper t evalu ation . See adddashawn dum. Not Available [facility] [address] [place] [place], [address], 08/08/2024 13:11:22 08/06/19 25 08/05/2024 TISSU E [...] multi ple piece s. ALICIA Not Available [facility] [address] [place], [address], 08/08/2024 13:11:22 08/06/19 25 08/05/2024 TISSU E EXAM disclaimer NOTE: The immun ohist ochem ical tests and in situ hybri dizat ion tests were devel oped and their perfo rmanc e michaelle cteri stics were deter [facility] Labor [...] and paraf fin embed ded. Not Available [facility] [address] [place], [address], 08/08/2024 13:11:22 08/06/19 25 08/05/2024 TISSU E EXAM .note See Note Origi nal Order ing Provi manuela: DILIP FORD IBSTE IN [facility] - [address], [facility] [place] [address] Not Available [facility] [address] [place], [address], 08/15/2024 11:20:14 08/06/19 25 08/05/2024 TISSU E EXAM addendum Case was sent for consu ltati ve opini on to [facility], Neuro patho Reginald chicas [place]. Their diagn osis is as follo ws: FINAL PATHO LOGIC DIAGN OSIS: CONSU LT MATER IALS RECEI FLACO FROM [facility] RMARIELENA, VIRAL. PITUI TARY (SPS2 [id number]; 08/05): GONAD OTROP H ADENO [place], [...] insti tutio n and quant ified at [facility]). Immun ohist ochem ical stain s perfo rmed at [facility] revea l that tumor cells are posit quincy for SF1 and negat quincy for PIT1 and TPIT> Elect caprice moreno d out by Deyanira willis MD, PHD Repor t Date: 08/15 (Full repor t on file) Adden dum elect caprice rashid josh d by Ruperto dickens MD on 2024 at 11:02 AM Not Available [facility] [address] [facility], [place], [address], 08/15/2024 11:20:14 08/06/19 25 08/05/2024 TISSU E [...] on 2024 at 1:08 PM Not Available [facility] [address] [place], [address], 08/15/2024 11:20:14 08/06/19 25 08/05/2024 TISSU E EXAM comment Ki67 labeli ng index is >1%. [facility] for exper jeannine reyes . See adden dum. Not Available [facility] [address] [place], [address], 08/15/2024 11:20:14 08/06/19 25 08/05/2024 TISSU E [...] multi ple piece s. ALICIA Not Available [facility] [address] [facility], [place], [address], 08/15/2024 11:20:14 08/06/19 25 08/05/2024 TISSU E EXAM disclaimer NOTE: The immun ohist ochem ical tests and in situ hybri dizat ion tests were devel oped and their perfo rmanc e michaelle cteri stics were deter mined by [facility] logy Labor [...] and paraf fin embed ded. Not Available [facility] [address] [place], [address], 08/15/2024 11:20:14 08/06/19 25 08/05/2024 op note No observ ation record ed. [email or web address] [facility] [address] [place], [address], 08/07/2024 12:08:58 Result Notes None recorded. Problems Name Problem SNOMED Code Status Onset Date Resolution Date Notes Provider Name and Address Organization Details Recorded Time Syncope 695876369 Active 2024 DILIP MOODY MD [address] [address], [place], [address], [facility] [place] 12:36:45 Pituitary macroadenoma with extrasellar extension 577477011 Active 2024 DILIP MOODY MD [address] [address], [place], [address], [facility] [place] 5 12:36:45 Laceration of forehead 928503985 Active 2024 DILIP MOODY MD [address] [address], [place], [address], [facility] [place] 12:36:45 Influenza caused by Influenza A virus 408582740 Active 2024 DILIP MOODY MD [address] [address], [place], [address], [facility] [place] 5 12:36:45 Bilateral visual field constriction 81039728 Active 2024 DILIP MOODY MD 100 [facility], [address] [facility], [place], [address], [facility] - [facility] [place] 5 12:36:45 Deviated nasal septum 558332649 Active 2024 DILIP MOODY MD 100 [facility],[address], [place], [address], [place] [facility] [place] 13:49:49 Pituitary macroadenoma 314135483 Active 2024 DILIP MOODY MD 100 [facility],[address], [place], [address], [place] [facility] [place] 13:49:54 Chronic rhinitis 21094308 Active 2024 DILIP MOODY MD 100 [facility], [address], [place], [address], [place] [facility] [place] 15:11:55 Pituitary adenoma 624200422 Active 2024 DILIP MOODY MD 100 [facility] [address], [place], [address], [place] [facility] [place] 11:05:04 Problem Notes None recorded. Procedures Surgical History Date Name Laterality Status Provider Name and Address Organization Details Recorded Time 5 JMSNasal/Sinus Endoscopy completed DILIP BAUER MD 100 [facility],[address], [address], [place] [facility] 11/07/2024 11:04:56 5 JMSNasal/Sinus Endoscopy-DEBR IDEMENT completed DILIP BAUER MD 100 [facility],[address], [address], [place] [facility] 09/04/2024 15:11:16 5 excision of neoplasm of pituitary completed DILIP BAUER MD 100 [facility],[address], [address], [place] [facility] 11/07/2024 11:01:40 5 JMSNasal/Sinus Endoscopy completed DILIP BAUER MD 100 [facility],[address], [address], [place] [facility] 06/02/2024 13:51:44 Imaging Results None recorded. Procedure Notes None recorded. Medical Equipment None Reported. Allergies Allergen ID Allergen Name Allergen Category Reaction Reaction Severity Criticality Documentation Date Start Date Code Code System Note Provider Name and Address Organization Details Recorded Time 046126 No known allergy (situatio n) Not available Not available Not available Not available 06/16/2024 60141 6003 SNOMED DILIP MOODY MD [address] [place] [address], [address] [place] [address] - [facility] 12:36:45 No known drug allergies Medications [...] Updated DateTime 06/02/2024 177.8 cm 23.7 kg/m2 40321.74 g Citlaly Avina [facility] 06/02/2024 13:12:18 Date Recorded Body height Body mass index (BMI) Body weight Provider Name and Address Organization Details Last Updated DateTime 08/12/2024 177.8 cm 24.1 kg/m2 85472.52 g Jennie Mosherjosé [place] - [facility] [place] 08/12/2024 14:09:36 Date Recorded Body height Body mass index (BMI) Body weight Provider Name and Address Organization Details Last Updated DateTime 09/04/2024 177.8 cm 22.9 kg/m2 90223.98 g Citlaly Avina [place] [facility] [place] 09/04/2024 14:41:10 Social History None recorded. Functional Status None recorded. Mental Status None recorded. Family History Nothing Reported. Medical History Condition Response Cancer N Hypertension Y Immunizations Vaccine Type Date Status Note Provider Nam e and Address Organization Details Recorded Time IPV 0 completed [facility] [place],[address], [address], [facility] 06/16/2024 12:36:45 cholera, unspecified formulation 1 completed DILIP BAUER MD [address] [facility] [place],[address], [address], [facility] 06/16/2024 12:36:45 meningococcal MPSV4 8 completed DILIP BAUER MD [address], [address], [facility] 06/16/2024 12:36:45 COVID-19, mRNA, LNP-S, PF, 30 mcg/0.3 mL dose 2 completed DILIP BAUER MD [address] [facility] [place],[address], [address], [place] [facility] 06/16/2024 12:36:45 COVID-19, mRNA, LNP-S, PF, 30 mcg/0.3 mL dose 1 completed DILIP BAUER MD [address] [facility] [place],[address], [address], [place] [facility] 06/16/2024 12:36:45 Pneumococcal conjugate PCV20, polysaccharide QUX106 conjugate, adjuvant, PF 3 completed DILIP BAUER MD [address],[place] [address] [place] [address], [address], [place] [facility] [place] 06/16/2024 12:36:45 influenza, unspecified formulation 1 completed DILIP BAUER MD [address],[place] [address] [place] [address], [address], [place] [facility] [place] 06/16/2024 12:36:45 Tdap 4 completed DILIP BAUER MD [address],[place] [address] [place] [address], [address], [place] [facility] [place] 06/16/2024 12:36:45 Tdap 1 completed DILIP BAUER MD [address],[place] [address] [place] [address], [address], [place] [facility] [place] 06/16/2024 12:36:45 Pneumococcal conjugate PCV 13 2 completed DILIP BAUER MD [address] [facility] [place] [address] [place] [address], [address], [place] [facility] [place] 06/16/2024 12:36:45 yellow fever live 8 completed DILIP BAUER MD [address],[place] [address] [place] [address], [address], [place] [facility] [place] 06/16/2024 12:36:45 yellow fever live 0 completed DILIP BAUER MD [address],[place] [address] [place] [address], [address], [place] [facility] [place] 06/16/2024 12:36:45 Influenza, high-dose, trivalent, PF 3 completed DILIP BAUER MD [address],[place] [address] [place] [address], [address], [place] [facility] [place] 06/16/2024 12:36:45 Influenza, high-dose, trivalent, PF 7 completed DILIP BAUER MD [address],[place] [address] [place] [address], [address], [place] [facility] [place] 06/16/2024 12:36:45 Influenza, high-dose, trivalent, PF 9 completed DILIP BAUER MD [address] [facility] [place] [address] [place] [address], [address], [place] [facility] [place] 06/16/2024 12:36:46 Influenza, high-dose, trivalent, PF 8 completed DILIP BAUER MD [address] [facility] [place],[address], [address], [place] [facility] [place] 06/16/2024 12:36:46 Influenza, split virus, trivalent, preservative 1 completed DILIP BAUER MD 100 [facility],[address], [address], [place] [facility] [place] 06/16/2024 12:36:46 Influenza, split virus, trivalent, preservative 5 completed DILIP BAUER MD 100 [facility],[address], [address], [place] [facility] [place] 06/16/2024 12:36:46 Influenza, split virus, trivalent, preservative 1 completed DILIP BAUER MD 100 [facility],[address], [address], [place] [facility] [place] 06/16/2024 12:36:46 Influenza, split virus, trivalent, preservative 2 completed DILIP BAUER MD 100 [facility],[address], [address], [place] [facility] [place] 06/16/2024 12:36:46 Influenza, split virus, trivalent, preservative 6 completed DILIP BAUER MD [address] [facility] [place],[address], [address], [place] [facility] [place] 06/16/2024 12:36:46 Influenza, split virus, trivalent, preservative 8 completed DILIP BAUER MD 100 [facility],[address], [address], [place] [facility] [place] 06/16/2024 12:36:46 Hep A, adult 1 completed DILIP BAUER MD 100 [facility],[address], [address], [place] [facility] [place] 06/16/2024 12:36:46 Hep A, adult 0 completed DILIP BAUER MD [address] [place] [address],[address], [address], [place] [facility] [place] 06/16/2024 12:36:46 typhoid, ViCPs 0 completed DILIP BAUER MD [address] [place] [address],[address], [address], [place] [facility] [place] 06/16/2024 12:36:46 typhoid, ViCPs 2 completed DILIP BAUER MD [address] [place] [address],[address], [address], [place] [facility] [place] 06/16/2024 12:36:46 typhoid, ViCPs 4 completed DILIP BAUER MD [address] [place] [address],[address], [address], [place] [facility] [place] 06/16/2024 12:36:46 Past Encounters Encounter ID Performer Location Encounter Start Date Encounter Closed Date Diagnosis/Indication Diagnosis SNOMED-CT Code Diagnosis ICD10 Code Diagnosis IMO Codes Diagnosis Note [id number] DILIP MONTOYA MD [facility] [address] [address] 06/02/2024 13:02:44 06/02/2024 13:53:24 Deviated nasal septum 223252935 J34.2 Pituitary macroadenoma 793883834 D35.2 Imaging reviewed personally . Will discuss withDr Overton [id number] ONUR DALY PA-C [facility] [place] [address] [place] [address] 08/12/2024 13:56:50 08/12/2024 14:31:54 Deviated nasal septum 049754017 J34.2 Pituitary macroadenoma 685249655 D35.2 Postoperative visit 1836 33457 Z48.89 [id number] DILIP MONTOYA MD [facility] [address] [place] [address] 09/04/2024 14:34:04 09/04/2024 16:18:53 Pituitary macroadenoma 246080398 D35.2 Chronic rhinitis 1233979 6 J31.0 2545 [id number] DILIP MONTOYA MD [facility] [address] [place] [address] 11/07/2024 10:36:50 11/07/2024 11:04:33 Pituitary adenoma 863042917 D35.2 653749 Health Concerns Section Related Observation LastModified by Organization Detai ls LastModified Time None Recorded Concern Status LastModified by Organization Details LastModified Time None Recorded Advance Directives Directive None Recorded Payers Insurance Date Sequence Insurance Name Policy Number Policy Yeung Covered Member ID Yeung Member ID Guarantor Name 09/04/2024 1 [facility] (POS) Ramses Nia Meghna [id number] 1 [facility] 09/04/2024 2 [place] [employer]ATIONAL [employer] Ramses [facility] [id number] 5 [facility] 09/04/2024 1 [id number] 1 [facility] 09/04/2024 1 [place] [employer] [facility] [id number] 5 [facility] 09/04/2024 1 [place] [facility] [id number] 5 [facility] 09/04/2024 2 [place] [employer] [facility] [id number] 5 Ramses Adeline 09/04/2024 1 [facility] (MEDICARE SUPPLEMENT) Ramses Nia Coffman [id number] Ramses Lr 12/22/2024 1 [place] [facility] Ramses Tala [facility] [id number] 5 Ramses Adeline 12/22/2024 2 [facility] Ramses Tala [facility] [id number] Ramses Adeline Notes Date Note Type [...] is no hemorrhage. DILIP BAUER MD 100 [facility],[address], [address], [facility] 06/03/2024 14:43:57 08/12/2024 text/html ROS as [...] and oxycodone for pain. JAMEEL MCPHERSON MD [address] [place] [address],[address], [address], [facility] 08/12/2024 17:33:34 09/04/2024 text/html Patient seen 1 month following endoscopic removal of pituitary adenoma with septoplasty. Breathing is good. No bleeding or foul smell. DILIP BAUER MD 100 [facility],[address], [address], [place] [facility] 09/04/2024 15:20:51 11/07/2024 text/html Ramses Lr [...] Overton, the neurosurgeon. DILIP BAUER MD 100 [facility],[address] [address], [place], [address], [facility] 11/07/2024 11:05:24
--- OUTSIDE RECORDS SUMMARY | 2025-02-06 12:24 | XMS_ITS | Continuity of Care Document ---
Author Organization [place] - [facility], [facility] Address [address] [place] [address] Care Team Providers Care Warehouse Coordinator Name Role Phone BRODIE AGUILLON Primary Care Provider Assessment Encounter Date Assessment Date Assessment LastModified by Organization Details LastModified Time 11/07/2024 11/07/2024 - Status post nasal surgery, [...] By Organization Details Last Modified Time 11/07/[id number] Overton, the neurosurgeon, [...] was required prior to finalizing the note. [email or web address] Not available 11/07/2024 11:03:23 Reason for Referral None Reported. Problems Name Problem SNOMED Code Status Onset Date Resolution Date Notes Provider Name and Address Organization Details Recorded Time Syncope 942884074 Active 2024 DILIP MOODY MD [address], [place], [address], [place] - [facility] 12:36:45 Pituitary macroadenoma with extrasellar extension 489358164 Active 2024 DILIP MOODY MD [address], [place], [address], [place] [facility] 12:36:45 Laceration of forehead 941933621 Active 2024 DILIP MOODY MD 100 [facility] [address], [place], [address], [facility] - [facility] 12:36:45 Influenza caused by Influenza A virus 622162318 Active 2024 DILIP MOODY MD 100 [facility], [address] [place], [place], [address], [facility] - [facility] 12:36:45 Bilateral visual field constriction 24231385 Active 2024 DILIP MOODY MD 100 [facility] [address], [place], [address], [facility] - [facility] 12:36:45 Deviated nasal septum 547051983 Active 2024 DILIP MOODY MD [address], [place], [address], [facility] - [facility] 13:49:49 Pituitary macroadenoma 892094356 Active 2024 DILIP MOODY MD [address], [place], [address], [place] [facility] 13:49:54 Chronic rhinitis 62273911 Active 2024 DILIP MOODY MD [address], [address], [facility] - [facility] 15:11:55 Pituitary adenoma 995522578 Active 2024 DILIP MOODY MD [address], [address], [facility] - [facility] 11:05:04 Problem Notes None recorded. Procedures Surgical History Date Name Laterality Status Provider Name and Address Organization Details Recorded Time JMSNasal/Sinus Endoscopy completed DILIP BAUER MD 100 [facility],[address], [address], [facility] - [facility] 11/07/2024 11:04:56 JMSNasal/Sinus Endoscopy-DEBR IDEMENT completed DILIP BAUER MD [address] [place] [address],[address], [address], [facility] - [facility] 09/04/2024 15:11:16 excision of neoplasm of pituitary completed DILIP BAUER MD 100 [facility],[address], [address], [facility] - [facility] 11/07/2024 11:01:40 JMSNasal/Sinus Endoscopy completed DILIP BAUER MD 100 [facility],[address], [address], [facility] - [facility] 06/02/2024 13:51:44 Imaging Results None recorded. Procedure Notes None recorded. Medical Equipment None Reported. Allergies Allergen ID Allergen Name Allergen Category Reaction Reaction Severity Criticality Documentation Date Start Date Code Code System Note Provider Name and Address Organization Details Recorded Time 607253 No known allergy (situatio n) Not available Not available Not available Not available 06/16/2024 [id number] [id number] SNOMED DILIP MOODY MD [address], [address], [facility] - [facility] 12:36:45 No known drug allergies Medications Name [...] Not Available Not Available Not Available Vitals None Recorded Social History None recorded. Functional Status None recorded. Mental Status None recorded. Family History Nothing Reported. Medical History Condition Response Cancer N Hypertension Y Immunizations Vaccine Type Date Status Note Provider Nam e and Address Organization Details Recorded Time IPV 0 completed DILIP BAUER MD 100 [facility],[address], [address], [facility] - [facility] 06/16/2024 12:36:45 cholera, unspecified formulation 1 completed DILIP BAUER MD 100 [facility],[address], [address], [facility] - [facility] 06/16/2024 12:36:45 meningococcal MPSV4 8 completed DILIP BAUER MD [address] [address] [place] [address], [address], [place] [facility] 06/16/2024 12:36:45 COVID-19, mRNA, LNP-S, PF, 30 mcg/0.3 mL dose 2 completed DILIP BAUER MD 100 [facility], [place] [address] [place] [address], [address], [place] [facility] 06/16/2024 12:36:45 COVID-19, mRNA, LNP-S, PF, 30 mcg/0.3 mL dose 1 completed DILIP BAUER MD 100 [facility], [place] [address] [place] [address], [address], [place] [facility] 06/16/2024 12:36:45 Pneumococcal conjugate PCV20, polysaccharide [id number] conjugate, adjuvant, PF 3 completed DILIP BAUER MD 100 [facility], [place] [address] [place] [address], [address], [place] [facility] 06/16/2024 12:36:45 influenza, unspecified formulation 1 completed DILIP BAUER MD 100 [facility], [place] [address] [place] [address], [address], [place] [facility] 06/16/2024 12:36:45 Tdap 4 completed DILIP BAUER MD 100 [facility], [place] [address] [place] [address], [address], [place] [facility] 06/16/2024 12:36:45 Tdap 1 completed DILIP BAUER MD 100 [facility], [place] [address] [place] [address], [address], [place] [facility] 06/16/2024 12:36:45 Pneumococcal conjugate PCV 13 2 completed DILIP BAUER MD 100 [facility], [place] [address] [place] [address], [address], [place] [facility] 06/16/2024 12:36:45 yellow fever live 8 completed DILIP BAUER MD 100 [facility], [place] [address] [place] [address], [address], [place] [facility] 06/16/2024 12:36:45 yellow fever live 0 completed DILIP BAUER MD 100 [facility], [place] [address] [place] [address], [address], [place] [facility] 06/16/2024 12:36:45 Influenza, high-dose, trivalent, PF 3 completed DILIP BAUER MD 100 [facility], [place] [address] [place] [address], [address], [place] [facility] 06/16/2024 12:36:45 Influenza, high-dose, trivalent, PF 7 completed DILIP BAUER MD 100 [facility], [place],[address], [address], [place] [facility] 06/16/2024 12:36:45 Influenza, high-dose, trivalent, PF 9 completed DILIP BAUER MD 100 [facility], [place],[address], [address], [place] [facility] 06/16/2024 12:36:46 Influenza, high-dose, trivalent, PF 8 completed DILIP BAUER MD 100 [facility], [place],[address], [address], [place] [facility] 06/16/2024 12:36:46 Influenza, split virus, trivalent, preservative 1 completed DILIP BAUER MD 100 [facility], [place] [address] [place] [address], [address], [place] [facility] 06/16/2024 12:36:46 Influenza, split virus, trivalent, preservative 5 completed DILIP BAUER MD 100 [facility], [place] [address] [place] [address], [address], [place] [facility] 06/16/2024 12:36:46 Influenza, split virus, trivalent, preservative 1 completed DILIP BAUER MD 100 [facility],[address], [address], [facility] - [facility] 06/16/2024 12:36:46 Influenza, split virus, trivalent, preservative 2 completed DILIP BAUER MD [address] [place] [address],[address], [address], [facility] - [facility] 06/16/2024 12:36:46 Influenza, split virus, trivalent, preservative 6 completed DILIP BAUER MD [address] [place] [address],[address], [address], [facility] - [facility] 06/16/2024 12:36:46 Influenza, split virus, trivalent, preservative 8 completed DILIP BAUER MD [address] [place] [address],[address], [address], [place] [facility] 06/16/2024 12:36:46 Hep A, adult 1 completed DILIP ABUER MD [address] [place] [address],[address], [address], [facility] - [facility] 06/16/2024 12:36:46 Hep A, adult 0 completed DILIP BAUER MD [address] [place] [address],[address], [address], [place] [facility] 06/16/2024 12:36:46 typhoid, ViCPs 0 completed DILIP BAUER MD [address] [place] [address],[address], [address], [facility] - [facility] 06/16/2024 12:36:46 typhoid, ViCPs 2 completed DILIP BAUER MD 100 [facility],[address], [address], [place] [facility] 06/16/2024 12:36:46 typhoid, ViCPs 4 completed DILIP BAUER MD [address] [place] [address], [address], [place] [facility] 06/16/2024 12:36:46 Past Encounters Encounter ID Performer Location Encounter Start Date Encounter Closed Date Diagnosis/Indication Diagnosis SNOMED-CT Code Diagnosis ICD10 Code Diagnosis IMO Codes Diagnosis Note [id number] DILIP MONTOYA MD [facility] [address] [address] 11/07/2024 10:36:50 11/07/2024 11:04:33 Pituitary adenoma 133419144 D35.2 [id number] Health Concerns Section Related Observation LastModified by Organization Detai ls LastModified Time None Recorded Concern Status LastModified by Organization Details LastModified Time None Recorded Payers Encounter Date Sequence Insurance Name Policy Number Policy Yeung Covered Member ID Yeung Member ID Guarantor Name 11/07/2024 1 [place]ARE B-[place] [facility] [employer] [facility] [id number] 5 [facility] 11/07/2024 2 [facility] [id number] [facility] Notes Date Note Type Note Provider Name and Address Organization Details Recorded Time 11/07/2024 text/html Ramses Lr is a 74-year-old [...] Dr. Overton, the neurosurgeon. DILIP BAUER MD [address] [place] [address], [address], [place] - [facility] 11/07/2024 11:05:24
--- OUTSIDE RECORDS SUMMARY | 2025-02-06 12:24 | XMS_ITS | Clinical Summary ---
Author Organization [facility] Address [address] [place] [address] Phone Care Team Providers Care Sprayer Leather Name Role Phone Ronna Castano MD Primary Care Provider [phone] Allergies No known active allergies Medications multivitamin tablet Take 1 tablet by mouth 1 (one) time each day. Active amLODIPine (NORVASC) 10 mg tablet Take 1 tablet (10 mg total) by mouth 1 (one) time each day. 90 tablet 1 5 Active senna-docusate (PERICOLACE) 8.6-50 mg per tablet Take 1 tablet by mouth at bedtime. 30 each 11 5 026 Active finasteride (PROSCAR) 5 mg tablet Take 1 tablet (5 mg total) by mouth 1 (one) time each day. 5 Active levETIRAcetam (KEPPRA) 500 mg tablet Take 1 tablet (500 mg total) by mouth 2 (two) times a day. 60 each 2 5 025 Discontinued atorvastatin (LIPITOR) 40 mg tablet Take 1 tablet (40 mg total) by mouth 1 (one) time each day. 90 tablet 1 5 025 Discontinued oxyCODONE (ROXICODONE) 5 mg immediate release tablet Take 1 tablet (5 mg total) by mouth every 4 (four) hours if needed for moderate pain. Max Daily Amount: 30 mg 20 tablet 025 Discontinued Active Problems Problem Noted Date Diagnosed Date Chronic rhinitis 09/04/2024 Pituitary adenoma ([facility] V24, [facility] V28) Assessment & Plan (08/15/2024 4:27 PM [...] septum 07/01/2024 Pituitary macroadenoma with extrasellar extension ([facility] V24, [facility] V28) 05/02/2024 Assessment & Plan (01/23/2025 3:58 PM EST): I reviewed the MRI findings with Mr. Lr and his noting that there has been a decrease in the overall size of the tumor and that the residual extrasellar portion has dropped down since the packing has dissipated and that now there is a clear gap under the optic chiasm. He does not have any visual issues, he is able to drive and feels well. This was a nonsecreting tumor and he is not experiencing any signs of hormonal imbalance. We will plan on getting another follow-up MRI in 1 year. Assessment & Plan (08/18/2024 1:55 PM EDT): [...] Encounters Date Type Department Care Team Description 01/23/2025 3:15 PM EST Office Visit [facility] [address] [facility] [address] [place] [address] Mady Overton MD Pituitary macroadenoma with extrasellar extension (CMS/HCC V24, CMS/HCC V28) (Primary Dx) 01/23/2025 Results Follow-Up [facility] [address] [facility] [address] [place] [address] Adelaide Beckett PA 01/14/2025 9:12 AM EDT - 01/14/2025 11:59 PM EDT Hospital Encounter [facility] MRI [address] [place] [phone] Pituitary adenoma (CMS/HCC V24, CMS/HCC V28) Discharge Disposition: Home or Self Care 12/24/2024 Results Follow-Up Gastroenterology - [address] [facility] [address] [facility] [address] [place] [phone] Madelin Noble MD 12/22/2024 2:15 PM EDT Office Visit [facility] Hematology Oncology [address] [place] [phone] Charito Monzon PA Anemia, unspecified type (Primary Dx); Elevated liver enzymes; Benign prostatic hyperplasia, unspecified whether lower urinary tract symptoms present 12/15/2024 2:17 PM EDT - 12/15/2024 11:59 PM EDT Hospital Encounter [facility] Ultrasound [address] [place] [address] Elevated alkaline phosphatase level Discharge Disposition: Home or Self Care 12/08/2024 1:45 PM EDT Lab Draw Station - [facility] [address] [phone] Encounter for screening for other viral diseases; Anemia, unspecified type 12/08/2024 1:00 PM EDT Office Visit [facility] Hematology Oncology [address] [place] [address] Charito Monzon PA Anemia, unspecified type (Primary Dx); Elevated liver enzymes; Benign prostatic hyperplasia, unspecified whether lower urinary tract symptoms present 12/04/2024 Telephone Gastroenterology - [address] [phone] Melissa Alcaraz [place] 11/28/2024 10:35 AM EDT Lab Draw Station - [address] [place] [phone] Elevated alkaline phosphatase level; Encounter for screening for other viral diseases; Contact with and (suspected) exposure to viral hepatitis 11/28/2024 9:40 AM EDT Consult Gastroenterology - [address] [phone] Sara Montes De Oca PA Elevated alkaline [...] CAT SCAN OF HEAD/BRAIN NO CONTRAST; COMMENT: [facility]; neg COLONOSCOPY 02/23/2011 PROCEDURE: UT COLONOSCOPY FLX DX W/COLLJ SPEC WHEN PFRMD; [...] for your loved ones. For example, child adolescent care or elderly care for an older adult? [...] Description 06/22/2025 2:30 PM EDT Office Visit [facility] Hematology Oncology [address] [place] [phone] Charito Monzon PA [address] [place] [address] Health Maintenance Due Date Last Done Comments [...] this topic Medical Devices Implanted Type Area Pipe And Boiler Covers Supervisor Device Identifier Shelf Expiration Date Model / Serial / Lot Kit Surgiflo W 2000 Units Ster Lyo - Sna - [id number] Implanted:Qty: 1 on 08/05/2024 by Mady Overton MD at [facility] Hemostasis N/A: Nose [employer] [id number] 12/16/2025 2994 / NA / [id number] Kit Surgiflo W 2000 Units Ster Lyo - Sna - [id number] Implanted:Qty: 1 on 08/05/2024 by Mady Overtno MD at [facility] Hemostasis N/A: Nose [employer] [id number] 12/16/2025 2994 / NA / [id number] Duraseal Exact Spine Sealant 5ml W Applicator - Sna - [id number] Implanted:Qty: 1 on 08/05/2024 by Mady Overton MD at [facility] Hemostasis N/A: Nose [employer] 02/15/2025 [id number] / [id number] / [id number] Procedures Procedure Name Priority Date/Time Associated Diagnosis Comments MR BRAIN WO AND W CONTRAST Routine 01/14/2025 11:14 AM EDT Pituitary adenoma (CMS/HCC V24, CMS/HCC V28) PROSTATE SPECIFIC ANTIGEN SCREEN Routine 12/18/2024 10:44 AM EDT Urinary tract infection Elevated prostate specific antigen (PSA) US ABDOMEN LIMITED Routine 12/15/2024 2: 51 PM EDT Elevated alkaline phosphatase level UT PROTEIN ELECTROPHORETIC FRACTIONATION & QUANTITATION SERUM Routine [...] 10:42 AM EDT Elevated alkaline phosphatase level LIPID PANEL WITH REFLEX TO DIRECT LDL Routine 09/29/2024 9:51 AM EDT Hyperlipidemia, unspecified hyperlipidemia type from Last 3 Months or Most Recently Relevant to Health Maintenance Results * MR Brain wo and w Contrast (01/14/2025 11:14 AM EDT) Anatomical Region Laterality Modality Head and Neck Magnetic Resonan ce 01/16/2025 3:42 PM EDT Impressions 01/19/2025 12:45 PM EST Decreased residual pituitary macroadenoma with decreased mass effect upon the optic nerves/chiasm. -------- FINAL REPORT -------- Dictated By: ZACHARY BARR Dictated Date: 01/16/2025 16:42 ET Assigned Physician: ZACHARY BARR Reviewed and Electronically Signed By: ZACHARY BARR Signed Date: 01/19/2025 12:45 ET Workstation ID: [id number] Transcribed By: Self Edit Transcribed Date: 01/16/2025 17:16 ET Narrative 01/19/2025 12:45 PM EST PROCEDURE: Brain MRI INDICATION: Pituitary tumor TECHNIQUE: Multiplanar, multisequence MRI of the brain without and with contrast. 8 mL Dotarem injected intravenously from a 15 mL vial with the remainder discarded. COMPARISON: 08/06/2024 FINDINGS: No acute infarct, mass effect, or intracranial hemorrhage. Brain parenchyma is normal in signal. Ventricles and sulci are normal in size and configuration. No hydrocephalus. Sellar mass extending into the suprasellar cistern is decreased compared to prior now measuring 20 x 23 x 15 mm as compared to 29 x 30 x 18 mm prior. Decreased mass effect upon the optic nerves and chiasm. Decreased extension into the left cavernous sinus. Remodeling of the bony the sella is unchanged. Foramen magnum is normal. No new abnormal intracranial enhancement or susceptibility artifact. Major intracranial arterial flow voids are normal. Sinuses and mastoid air cells are clear. 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 No marrow replacing lesions throughout the calvarium. Procedure Note Zachary Barr MD - 01/19/2025 PROCEDURE: Brain MRI INDICATION: Pituitary tumor TECHNIQUE: Multiplanar, multisequence MRI of the brain without and withcontrast. 8 mL Dotarem injected intravenously from a 15 mL vial with theremainder discarded. COMPARISON: 08/06/2024 FINDINGS: No acute infarct, mass effect, or intracranial hemorrhage. Brain parenchyma is normal in signal. Ventricles and sulci are normal in size and configuration. Nohydrocephalus. Sellar mass extending into the suprasellar cistern is decreased comparedto prior now measuring 20 x 23 x 15 mm as compared to 29 x 30 x 18 mmprior. Decreased mass effect upon the optic nerves and chiasm. Decreasedextension into the left cavernous sinus. Remodeling of the bony the sellais unchanged. Foramen magnum is normal. No new abnormal intracranial enhancement or susceptibility artifact. Major intracranial arterial flow voids are normal. Sinuses and mastoid air cells are clear. 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 No marrow replacing lesionsthroughout the calvarium. IMPRESSION: Decreased residual pituitary macroadenoma with decreased mass effect uponthe optic nerves/chiasm. -------- FINAL REPORT -------- Dictated By: ZACHARY BARR Dictated Date: 01/16/2025 16:42 ET Assigned Physician: ZACHARY BARR Reviewed and Electronically Signed By: ZACHARY BARR Signed Date: 01/19/2025 12:45 ET Workstation ID: [id number] Transcribed By: Self Edit Transcribed Date: 01/16/2025 17:16 ET Adelaide CHAIDEZ IMG MRI PROCEDURES Final R esult * (ABNORMAL) Prostate specific antigen screen (12/18/2024 10:44 AM EDT) PSA 17.19(H) 0.00 - 4.00 ng/mL LAB CHEMISTRY METHOD 12/18/2024 1:54 PM EDT [facility] Blood Venous blood specimen / Unknown Venipuncture / Unknown 12/18/2024 10:44 AM EDT 12/18/2024 10:44 AM EDT Narrative [facility] - 12/18/2024 1:54 PM EDT The Siemens Advia GPNXaur Chemiluminescent Immunoassay is used. Results obtained with different assay methods or kits cannot be used interchangeably. Results cannot be interpreted as absolute evidence of the presence or absence of malignant disease. us Andres Farfan MD LAB BLOOD ORDERABLES Final Re sult [facility] ([facility] [address] [facility] [place] [address], [place] [phone] * US Abdomen Limited (12/15/2024 2:51 PM EDT) Anatomical Region Laterality Modality Body Ultrasound 12/24/2024 1:54 PM EDT Impressions 12/24/2024 1:56 PM EDT Impression: 1. No evidence of cholelithiasis or biliary obstruction. 2. Simple hepatic and right renal cysts, requiring no specific follow-up. Telerad KAYLYNN ([id number]) -------- FINAL REPORT -------- Dictated By: Myrna Cueto Dictated Date: 12/24/2024 13:54 ET Assigned Physician: Myrna Cueto Reviewed and Electronically Signed By: Myrna Cueto Signed Date: 12/24/2024 13:56 ET Workstation ID: [id number] Transcribed By: Self Edit Transcribed Date: 12/24/2024 13:54 ET Narrative 12/24/2024 1:56 PM EDT History: Elevated alkaline phosphatase. Comparison: CT abdomen/pelvis 01/19/23 Findings: Real-time imaging of the abdomen, limited to the right upper quadrant, was performed. The hepatic echogenicity is diffusely increased, consistent with fatty infiltration and/or fibrosis. A 1.8 x 1.1 x 1.9 cm simple cyst is seen within the subcapsular left hepatic lobe, also noted on the CT. No solid hepatic masses are seen. The portal vein is patent and exhibits normal, hepatopedal flow. The gallbladder is physiologically distended and without evidence of calculus or wall thickening. The common duct is normal in caliber, measuring 3 mm at the level of the hepatic artery and portal vein. No ascites is seen in the right upper quadrant. A survey view of the right kidney is remarkable for a 3.4 x 3.3 x 2.9 cm simple cyst arising from the interpolar area, also noted on the prior CT. There is no hydronephrosis. The pancreas is largely obscured by bowel gas shadowing; the visualized portions of the neck appear normal. Procedure Note Myrna Cueto MD - 12/24/2024 History: Elevated alkaline phosphatase. Comparison: CT abdomen/pelvis 01/19/23 Findings: Real-time imaging of the abdomen, limited to the right upper quadrant, wasperformed. The hepatic echogenicity is diffusely increased, consistent with fattyinfiltration and/or fibrosis. A 1.8 x 1.1 x 1.9 cm simple cyst is seenwithin the subcapsular left hepatic lobe, also noted on the CT. No solidhepatic masses are seen. The portal vein is patent and exhibits normal,hepatopedal flow. The gallbladder is physiologically distended and without evidence ofcalculus or wall thickening. The common duct is normal in caliber,measuring 3 mm at the level of the hepatic artery and portal vein. No ascites is seen in the right upper quadrant. A survey view of the rightkidney is remarkable for a 3.4 x 3.3 x 2.9 cm simple cyst arising from theinterpolar area, also noted on the prior CT. There is no hydronephrosis. The pancreas is largely obscured by bowel gas shadowing; the visualizedportions of the neck appear normal. IMPRESSION: Impression: 1. No evidence of cholelithiasis or biliary obstruction. 2. Simple hepatic and right renal cysts, requiring no specificfollow-up. Zach CHAIDEZ ([id number]) -------- FINAL REPORT -------- Dictated By: Myrna Cueto Dictated Date: 12/24/2024 13:54 ET Assigned Physician: Myrna Cueto Reviewed and Electronically Signed By: Myrna Cueto Signed Date: 12/24/2024 13:56 ET Workstation ID: [id number] Transcribed By: Self Edit Transcribed Date: 12/24/2024 13:54 ET Sara CHAIDEZ IMG US PROCEDURES Final Result * PATHOLOGIST REVIEW PROTEIN ELECTROPHORESIS (12/08/2024 1:41 PM EDT) Pathologist Interpretation Reviewed by Mellisa Otero MD 12/11/2024 1:30 PM EDT [facility] Blood Venous blood specimen / Unknown Venipuncture / Unknown 12/08/2024 1:41 PM EDT 12/08/2024 4:31 PM EDT Charito CHAIDEZ LAB BLOOD ORDERABLES Final Re sult Performing Organization Address [facility]/ZIP Co de Phone Number [facility] [address] [place] [address], [place] [phone] * Thyroid stimulating hormone with reflex to free t4 and free t3 (12/08/2024 1:41 PM EDT) [facility] TSH 1.85 0.40 - 4.00 mcIU/mL LAB CHEMISTRY METHOD 12/08/2024 5:28 PM EDT [facility] Blood Venous blood specimen / Unknown Venipuncture / Unknown 12/08/2024 1:41 PM EDT 12/08/2024 4:31 PM EDT us Charito CHAIDEZ LAB BLOOD ORDERABLES Final Re sult Performing Organization Address [facility] Co de Phone Number [facility] [address] [place] [address], [place] [phone] * (ABNORMAL) [place]-lambda free light chains, quantitative (12/08/2024 1:41 PM EDT) [place] Free Light Chain 3.06(H) 0.33 - 1.94 mg/dL 12/11/2024 10:34 AM EDT [facility] Lambda Free Light Chain 1.43 0.57 - 2.63 mg/dL 12/11/2024 10:34 AM EDT [facility] [place]/Lambda FLC Ratio 2.14(H) 0.26 - 1.65 12/11/2024 10:34 AM EDT [facility] Comment: Test performed at [facility], [address] , [place] [address] Annalise Dill MD, PhD - Rivet [employer] Blood Venous blood specimen / Unknown Venipuncture / Unknown 12/08/2024 1:41 PM EDT 12/08/2024 4:31 PM EDT us Charito CHAIDEZ LAB BLOOD ORDERABLES Final Re sult [facility] [address] [place] [address] * Hepatitis B virus molecular study quantitative (12/08/2024 1:41 PM EDT) [facility] Hepatitis B Virus DNA Qualitative Not detected Not detected 12/11/2024 11:13 AM EDT [facility] Hepatitis B Virus DNA, Quantitative <10 <10 IU/mL 12/11/2024 11:13 AM EDT [facility] Log Hepatitis B Virus DNA <1.00 <1.00 Log (10) IU/mL 12/11/2024 11:13 AM EDT [facility] Comment: This procedure utilizes a real-time polymerase chain reaction test from [employer] ([employer]). The amplification target is a conserved region [...] not rule out infection. Test performed at [facility], [address] , [place] [address] Annalise Dill MD, PhD - Rivet [employer]er Blood Venous blood specimen / Unknown Venipuncture / Unknown 12/08/2024 1:41 PM EDT 12/08/2024 4:42 PM EDT us Sara CHAIDEZ LAB BLOOD ORDERABLES Final Resu lt [facility] [address] [place] [address] * (ABNORMAL) CBC auto differential (12/08/2024 1:41 PM EDT) [facility] WBC 5.9 4.8 - 10.8 K/mcL LAB HEMETOLOGY METHOD 12/08/2024 4:44 PM EDT [facility] RBC 4.30(L) 4.50 - 5.50 M/mcL LAB HEMETOLOGY METHOD 12/08/2024 4:44 PM EDT [facility] Hemoglobin 11.9(L) 13.5 - 17.5 g/dL LAB HEMETOLOGY METHOD 12/08/2024 4:44 PM EDT [facility] Hematocrit 36.9(L) 42.0 - 54.0 % LAB HEMETOLOGY METHOD 12/08[facility]2024 [facility] MCV 85.8 79.0 - 98.0 FL LAB HEMETOLOGY METHOD 12/08/2024 4:44 PM EDT [facility] MCH 27.7 27.0 - 32.0 pcg LAB HEMETOLOGY METHOD 12/08/2024 4:44 PM EDT [facility] MCHC 32.2 32.0 - 37.0 g/dL LAB HEMETOLOGY METHOD 12/08/2024 4:[facility] RDW 13.9 11.0 - 15.0 % LAB HEMETOLOGY METHOD 12/08/2024 4:44 PM EDT [facility] Platelets 264 130 - 400 K/mcL LAB HEMETOLOGY METHOD 12/08/2024 4:[facility] MPV 9.6 7.0 - 11.0 FL LAB HEMETOLOGY METHOD 12/08/2024 4:[facility] NRBC 0.0 <1.0 % LAB HEMETOLOGY METHOD 12/08/2024 4:44 PM EDT [facility] NRBC Absolute 0.00 <0.10 K/mcL LAB HEMETOLOGY METHOD 12/08/2024 4:44 PM EDT [facility] Neutrophils Relative 43.1 % LAB HEMETOLOGY METHOD 12/08/2024 4:44 [facility] Lymphocytes Relative 47.6 % LAB HEMETOLOGY METHOD 12/08/2024 4:44 PM EDT [facility] Monocytes Relative 7.6 % LAB HEMETOLOGY METHOD 12/08/2024 4:44 [facility] Eosinophils Relative 1.0 % LAB HEMETOLOGY METHOD 12/08/2024 4:44 [facility] Basophils Relative 0.5 % LAB HEMETOLOGY METHOD 12/08/2024 4:44 PM [facility] Immature Granulocytes Relative 0.2 % LAB HEMETOLOGY METHOD 12/08/2024 4:44 PM [facility] Neutrophils Absolute 2.56 1.50 - 7.00 K/mcL LAB HEMETOLOGY METHOD 12/08/2024 4:44 PM [facility] Lymphocytes Absolute 2.82 1.00 - 5.00 K/mcL LAB HEMETOLOGY METHOD 12/08/2024 4:44 PM [facility] Monocytes Absolute 0.45 0.20 - 1.00 K/mcL LAB HEMETOLOGY METHOD 12/08/2024 4:44 PM EDT [facility] Eosinophils Absolute 0.06 0.00 - 0.50 K/mcL LAB HEMETOLOGY METHOD 12/08/2024 4:44 PM EDT [facility] Basophils Absolute 0.03 0.00 - 0.20 K/mcL LAB HEMETOLOGY METHOD 12/08/2024 4:44 PM [facility] Immature Granulocytes Absolute 0.01 0.00 - 0.03 K/mcL LAB HEMETOLOGY METHOD 12/08/2024 4:44 PM EDT [facility] Blood Venous blood specimen / Unknown Venipuncture / Unknown 12/08/2024 1:41 PM EDT 12/08/2024 4:44 PM EDT Charito CHAIDEZ LAB BLOOD ORDERABLES Final Re sult Performing Organization Address [facility]/ZIP Co de Phone Number [facility] [address] [place] [address], * Erythropoietin (12/08/2024 1:41 PM EDT) Erythropoietin 9.3 2.6 - 18.5 mIU/mL 12/11/2024 2:31 PM EDT [facility] Comment: Test performed at [facility], [address] , [place] [address] Annalise Dill MD, PhD - Rivet [employer]er Blood Venous blood specimen / Unknown Venipuncture / Unknown 12/08/2024 1:41 PM EDT 12/08/2024 4:31 PM EDT Charito Cristianejosé Monzon [place] LAB BLOOD ORDERABLES Final Re sult Performing Organization Address [facility]/ZIP Co de Phone Number [facility] [address] [place] [address] * (ABNORMAL) Reticulocyte count (12/08/2024 1:41 PM EDT) Retic Ct Abs 0.080 0.030 - 0.090 M/mcL LAB HEMETOLOGY METHOD 12/08/2024 4:44 PM EDT [facility] Retic Ct Pct 1.8(H) 0.7 - 1.7 % LAB HEMETOLOGY METHOD 12/08/2024 4:44 PM EDT [facility] Immature Retic Fract 13.2 2.3 - 15.9 % LAB HEMETOLOGY METHOD 12/08/2024 4:44 PM EDT [facility] Reticulocyte Hemoglobin 31.6 >29.0 pcg LAB HEMETOLOGY METHOD 12/08/2024 4:44 PM EDT [facility] Blood Venous blood specimen / Unknown Venipuncture / Unknown 12/08/2024 1:41 PM EDT 12/08/2024 4:44 PM EDT us Charito CHAIDEZ LAB BLOOD ORDERABLES Final Re sult [facility] [address] [place] [address], [place] [phone] * (ABNORMAL) Protein electrophoresis, serum (12/08/2024 1:41 PM EDT) Total Protein 8.1(H) 6.0 - 8.0 g/dL LAB CHEMISTRY METHOD 12/11/2024 1:30 PM EDT [facility] Albumin, Serum 4.0 2.9 - 4.1 g/dL LAB CHEMISTRY METHOD 12/11/2024 1:30 PM EDT [facility] Alpha 1 Globulin (g/dL) 0.2 0.1 - 0.5 g/dL LAB CHEMISTRY METHOD 12/11/2024 1:30 PM EDT [facility] Alpha 2 Globulin (g/dL) 0.9 0.7 - 1.5 g/dL LAB CHEMISTRY METHOD 12/11/2024 1:30 PM EDT [facility] Beta (g/dL) 1.2 0.7 - 1.5 g/dL LAB CHEMISTRY METHOD 12/11/2024 1:30 PM EDT [facility] Gamma Globulin (g/dL) 1.8 0.7 - 1.9 g/dL LAB CHEMISTRY METHOD 12/11/2024 1:30 PM EDT [facility] SPEP Interpretation No M-Cesar seen. Essentially normal pattern. LAB CHEMISTRY METHOD 12/11/2024 1:30 PM EDT [facility] Blood Venous blood specimen / Unknown Venipuncture / Unknown 12/08/2024 1:41 PM EDT 12/08/2024 4:31 PM EDT us Charito CHAIDEZ LAB BLOOD ORDERABLES Final Re sult Performing Organization Address [facility]/ZIP Co de Phone Number [facility] [address] [place] [address], [place] [phone] * Protein, total (12/08/2024 1:41 PM EDT) [facility] Total Protein 8.0 6.0 - 8.0 g/dL LAB CHEMISTRY METHOD 12/08/2024 4:57 PM EDT [facility] Blood Venous blood specimen / Unknown Venipuncture / Unknown 12/08/2024 1:41 PM EDT 12/08/2024 4:31 PM EDT us Charito CHAIDEZ LAB BLOOD ORDERABLES Final Re sult Performing Organization Address [facility] Co de Phone Number [facility] [address] [place] [address], [place] [phone] * Lactate dehydrogenase (12/08/2024 1:41 PM EDT) [facility] LDH 221 120 - 246 unit/L LAB CHEMISTRY METHOD 12/08/2024 5:13 PM EDT [facility] Blood Venous blood specimen / Unknown Venipuncture / Unknown 12/08/2024 1:41 PM EDT 12/08/2024 4:31 PM EDT Charito CHAIDEZ LAB BLOOD ORDERABLES Final Re sult Performing Organization Address City/[facility]/ZIP Co de Phone Number [facility] [address] [place] [address], [place] [phone] * Haptoglobin (12/08/2024 1:41 PM EDT) Haptoglobin 82 16 - 200 mg/dL LAB CHEMISTRY METHOD 12/08/2024 5:16 PM T [facility] Blood Venous blood specimen / Unknown Venipuncture / Unknown 12/08/2024 1:41 PM EDT 12/08/2024 4:31 PM EDT us Charito CHAIDEZ LAB BLOOD ORDERABLES Final Re sult [facility] [address] [place] [address], [place] [phone] * (ABNORMAL) Comprehensive metabolic panel (12/08/2024 1:41 PM EDT) Pathologist [facility] Sodium 140 133 - 145 mmol/L LAB CHEMISTRY METHOD 12/08/2024 5:16 PM EDT [facility] Potassium 4.5 3.5 - 5.5 mmol/L LAB CHEMISTRY METHOD 12/08/2024 5:16 PM [facility] Chloride 106 96 - 110 mmol/L LAB CHEMISTRY METHOD 12/08/2024 5:16 PM [facility] CO2 31 21 - 32 mmol/L LAB CHEMISTRY METHOD 12/08/2024 5:16 PM [facility] Anion Gap 3 3 - 11 LAB CHEMISTRY METHOD 12/08/2024 5:16 PM [facility] Glucose 97 70 - 100 mg/dL LAB CHEMISTRY METHOD 12/08/2024 5:16 PM [facility] BUN 17 5 - 25 mg/dL LAB CHEMISTRY METHOD 12/08/2024 5:16 PM [facility] Creatinine 1.16 0.70 - 1.30 mg/dL LAB CHEMISTRY METHOD 12/08/2024 5:16 PM [facility] [facility] eGFR 67 >=60 mL/min/1. 73m2 LAB CHEMISTRY METHOD 12/08/2024 5:16 PM EDT [facility] Comment:Calculation based on the Chronic Kidney Disease Epidemiology Collaboration (CKD-EPI) equation refit without adjustment for race. BUN/Creatinine Ratio 14.7 LAB CHEMISTRY METHOD 12/08/2024 5:16 PM EDT [facility] Calcium 9.4 8.5 - 10.5 mg/dL LAB CHEMISTRY METHOD 12/08/2024 5:16 PM EDT [facility] AST (SGOT) 24 10 - 42 unit/L LAB CHEMISTRY METHOD 12/08/2024 5:16 PM [facility] ALT (SGPT) 25 10 - 60 unit/L LAB CHEMISTRY METHOD 12/08/2024 5:16 PM [facility] Alkaline Phosphatase 113 42 - 121 unit/L LAB CHEMISTRY METHOD 12/08/2024 5:16 PM T [facility] Total Protein 8.1(H) 6.0 - 8.0 g/dL LAB CHEMISTRY METHOD 12/08/2024 5:16 PM T [facility] Albumin 4.2 3.2 - 5.0 g/dL LAB CHEMISTRY METHOD 12/08/2024 5:16 PM [facility] Total Bilirubin 0.4 0.0 - 1.4 mg/dL LAB CHEMISTRY METHOD 12/08/2024 5:16 PM T [facility] Blood Venous blood specimen / Unknown Venipuncture / Unknown 12/08/2024 1:41 PM EDT 12/08/2024 4:31 PM EDT us Charito CHAIDEZ LAB BLOOD ORDERABLES Final Re sult [facility] [address] [place] [address], * AST, ALT, Bilirubin ELR state reportables (11/28/2024 10:42 AM EDT) [facility] ALT (SGPT) 20 10 - 60 unit/L LAB CHEMISTRY METHOD 11/28/2024 3:55 PM EDT [facility] AST (SGOT) 19 10 - 42 unit/L LAB CHEMISTRY METHOD 11/28/2024 3:55 PM EDT [facility] Bilirubin, Direct 0.1 0.0 - 0.3 mg/dL LAB CHEMISTRY METHOD 11/28/2024 3:55 PM EDT [facility] Total Bilirubin 0.3 0.0 - 1.4 mg/dL LAB CHEMISTRY METHOD 11/28/2024 3:55 PM EDT [facility] Blood Venous blood specimen / Unknown Venipuncture / Unknown 11/28/2024 10:42 AM EDT 11/28/2024 12:43 PM EDT Sara CHAIDEZ LAB BLOOD ORDERABLES Final Resu lt [facility] [address] [place] [address], [place] [phone] * (ABNORMAL) Hepatitis A antibody total with reflex IgM (11/28/2024 10:42 AM EDT) [facility] Hep A Total Ab Positive( A) Negative LAB CHEMISTRY METHOD 11/28/2024 3:49 PM EDT [facility] Blood Venous blood specimen / Unknown Venipuncture / Unknown 11/28/2024 10:42 AM EDT 11/28/2024 12:43 PM EDT Narrative [facility] - 11/28/2024 3:49 PM EDT Over the counter supplements containing high doses of biotin may interfere with this assay. If interference is suspected, patients shoud be retested after refraining from biotin supplements for 72 hours. us Sara CHAIDEZ LAB BLOOD ORDERABLES Final Resu lt Performing Organization Address City/[facility]/ZIP Co de Phone Number [facility] [address] [place] [address], [place] [phone] * (ABNORMAL) Hepatitis B screening panel (11/28/2024 10:42 AM EDT) [facility] Hepatitis B Surface Ag Negative Negative LAB CHEMISTRY METHOD 11/28/2024 3:49 PM EDT [facility] Hep B Core Total Ab Positive(A) Negative LAB CHEMISTRY METHOD 11/28/2024 3:49 PM EDT [facility] Hepatitis B Surface Ab Positive(A) Negative LAB CHEMISTRY METHOD 11/28/2024 3:49 PM EDT [facility] Blood Venous blood specimen / Unknown Venipuncture / Unknown 11/28/2024 10:42 AM EDT 11/28/2024 12:43 PM EDT Sara Montes De Oca SC LAB BLOOD ORDERABLES Final Resu lt Performing Organization Address [facility]/ZIP Co de Phone Number [facility] [address] [place] [address], [place] [phone] * Hepatitis C virus quantitative molecular study (11/28/2024 10:42 AM EDT) [facility] HCV Qual Interp Not Detected Not Detected LAB MOLECULAR DIAGNOSTICS METHOD 12/02/2024 11:18 AM EDT [facility] Comment:HCV RNA not detected , unable to report quantitative results. Blood Venous blood specimen / Unknown Venipuncture / Unknown 11/28/2024 10:42 AM EDT 11/28/2024 12:43 PM EDT Sara Montes De Oca SC LAB BLOOD ORDERABLES Final Resu lt [facility] [address] [place] [address], [place] [phone] * Hepatitis A antibody IgM (11/28/2024 10:42 AM EDT) [facility] Hepatitis A Antibody IgM Negative Negative LAB CHEMISTRY METHOD 11/28/2024 5:40 PM EDT [facility] Blood Venous blood specimen / Unknown Venipuncture / Unknown 11/28/2024 10:42 AM EDT 11/28/2024 12:43 PM EDT Narrative [facility] - 11/28/2024 5:40 PM EDT Over the counter supplements containing high doses of biotin may interfere with this assay. If interference is suspected, patients shoud be retested after refraining from biotin supplements for 72 hours. us Sara CHAIDEZ LAB BLOOD ORDERABLES Final Resu lt Performing Organization Address [facility]/ZIP Co de Phone Number [facility] [address] [place] [address], * Antimitochondrial antibody (11/28/2024 10:42 AM EDT) [facility] Mitochondrial Antibody Quantitative 4.1 <=20.0 units LAB CHEMISTRY METHOD 12/03/2024 12:31 PM EDT [facility] Mitochondrial Antibody Qualitative Negative Negative LAB CHEMISTRY METHOD 12/03/2024 12:31 PM EDT [facility] Blood Venous blood specimen / Unknown Venipuncture / Unknown 11/28/2024 10:42 AM EDT 11/28/2024 12:43 PM EDT Sara CHAIDEZ LAB BLOOD ORDERABLES Final Resu lt Performing Organization Address [facility]/ZIP Co de Phone Number [facility] [address] [place] [address], [place] [phone] * GGT (11/28/2024 10:42 AM EDT) [facility] GGT 43 7 - 64 unit/L LAB CHEMISTRY METHOD 11/28/2024 1:54 PM EDT [facility] Blood Venous blood specimen / Unknown Venipuncture / Unknown 11/28/2024 10:42 AM EDT 11/28/2024 12:43 PM EDT us Sara CHAIDEZ LAB BLOOD ORDERABLES Final Resu lt [facility] [address] [place] [address], [place] [phone] * (ABNORMAL) Hepatic function panel (11/28/2024 10:42 AM EDT) Total Protein 9.1(H) 6.0 - 8.0 g/dL LAB CHEMISTRY METHOD 11/28/2024 2:10 PM EDT [facility] Albumin 4.6 3.2 - 5.0 g/dL LAB CHEMISTRY METHOD 11/28/2024 2:10 PM EDT [facility] Total Bilirubin 0.3 0.0 - 1.4 mg/dL LAB CHEMISTRY METHOD 11/28/2024 2:10 PM EDT [facility] Bilirubin, Direct 0.1 0.0 - 0.3 mg/dL LAB CHEMISTRY METHOD 11/28/2024 2:10 PM EDT [facility] Bilirubin, Indirect 0.2 0.0 - 1.1 mg/dL LAB CHEMISTRY METHOD 11/28/2024 2:10 PM EDT [facility] ALT (SGPT) 20 10 - 60 unit/L LAB CHEMISTRY METHOD 11/28/2024 2:10 PM EDT [facility] AST (SGOT) 19 10 - 42 unit/L LAB CHEMISTRY METHOD 11/28/2024 2:10 PM EDT [facility] Alkaline Phosphatase 125(H) 42 - 121 unit/L LAB CHEMISTRY METHOD 11/28/2024 2:10 PM T [facility] Blood Venous blood specimen / Unknown Venipuncture / Unknown 11/28/2024 10:42 AM EDT 11/28/2024 12:43 PM EDT us Sara CHAIDEZ LAB BLOOD ORDERABLES Final Resu lt Performing Organization Address City/[facility]/ZIP Co de Phone Number [facility] [address] [place] [address], [place] [phone] * Lipid panel with reflex to direct LDL (09/29/2024 9:51 AM EDT) Cholesterol 158 0 - 200 mg/dL LAB CHEMISTRY METHOD 09/29/2024 8:47 PM EDT [facility] Triglycerides 57 0 - 150 mg/dL LAB CHEMISTRY METHOD 09/29/2024 8:47 PM EDT [facility] HDL 48 >=40 mg/dL LAB CHEMISTRY METHOD 09/29/2024 8:47 PM EDT [facility] LDL Calculated 99 0 - 100 mg/dL LAB CHEMISTRY METHOD 09/29/2024 8:47 PM EDT [facility] VLDL Cholesterol Al 11.4 mg/dL LAB CHEMISTRY METHOD 09/29/2024 8:47 PM EDT [facility] Non HDL Chol. (LDL+VLDL) 110 <145 mg/dL LAB CHEMISTRY METHOD 09/29/2024 8:47 PM EDT [facility] Chol/HDL Ratio 3.3 0.0 - 4.4 LAB CHEMISTRY METHOD 09/29/2024 8:47 PM EDT [facility] Blood Venous blood specimen / Unknown Venipuncture / Unknown 09/29/2024 9:51 AM EDT 09/29/2024 9:51 AM EDT us Paul Cee MD LAB BLOOD ORDERABLES Nirmala l Result Performing Organization Address City/[facility]/ZIP Co de Phone Number [facility] [address] [place] [address], from Last 3 Months or Most Recently Relevant to Health Maintenance Insurance MEDICARE [facility] Advance Directives Documents on File Type Date Recorded Patient Back Seam Stitcher Expl anation Advance Directives and Living Will 04/30/2024 10:51 AM Nano Ceballos [facility] Health Care Proxy * Full Code - [...] First Alternate Health Care Agent Care Teams Sprayer Leather Relationship Specialty Start Date End Date Ronna Castano MD [address] [place] [address] PCP - General Internal Medicine 12/18/24
--- OUTSIDE RECORDS SUMMARY | 2025-02-06 12:24 | XMS_ITS | Clinical Summary ---
Author Organization [facility] Address [address] [place] [phone] Phone Care Team Providers Care Baggageman Name Role Phone Luis Monzon MD Primary [...] & B [employer] MEDICARE ENHANCE SUPPLEMENT [facility] Address: [facility] [id number] [id number] MEDICARE PART A & B [facility] MEDICARE ENHANCE SUPPLEMENT [facility] Address: [facility] [id number] [place] [address] MEDICARE PART A & B [facility] MEDICARE ENHANCE SUPPLEMENT MEDICARE PART A & B [facility] MEDICARE ENHANCE SUPPLEMENT MEDICARE PART A & B [facility] MEDICARE ENHANCE SUPPLEMENT MEDICARE PART A & B [facility] MEDICARE ENHANCE SUPPLEMENT [facility] Address: [facility] [id number] [id number] MEDICARE PART A & B [facility] MEDICARE ENHANCE SUPPLEMENT [facility] Address: [facility] [id number] [place] [address] MEDICARE PART A & B [facility] MEDICARE ENHANCE SUPPLEMENT MEDICARE PART A & B Care Teams Baggageman Relationship Specialty Start Date End Date Luis Monzon MD PCP - General 09/16/13 Additional Source Comments The information contained in this document represents components of the legal health record. It is not the complete legal health record.[facility]
--- OUTSIDE RECORDS SUMMARY | 2025-02-06 12:24 | XMS_ITS | Encounter Summary ---
Author Organization [facility] Address [address] [place] [address] Care Team Providers Care Superannuation Clerk Name Role Phone Ronna Castano MD Primary Care Provider [phone] Encounter Details Date Type Department Care Team (Late st Contact Info) Description 12/24/2024 Results Follow-Up Gastroenterology - [address] [place] [id number] Madelin Noble MD [address] [place] [address] Social History Tobacco Use Types Packs/Day Years [...] ed Within the last 3 months, shikha w many times did you visit the [...] do you feel lonely or isolated from ose around you? Never 04/29/2024 Food Risk [...] your loved ones. For example, child care specialist or elderly care for an older adult? [...] documented in this encounter Progress Notes * Madelin Noble MD - 12/24/2024 3:50 PM EDT Please let patient know that his liver ultrasound looked good. Benign cysts were noted in the liverand kidney and do not need further work up. These cysts are not the cause of any lab abnormalities. documented in this encounter Plan of Treatment Upcoming Encounters Date Type Department Care Team (Late st Contact Info) Description 06/22/2025 2:30 PM EDT Office Visit [facility] Hematology Oncology [address] [place] [phone] Charito Monzon PA [address] [place] [address] documented as of this encounter Visit Diagnoses Not on filedocumented in this encounter Care Teams Superannuation Clerk Relationship Specialty Start Date End Date Ronna Castano MD [facility] [place], [place] PCP - General Internal Medicine 12/18/24 documented as of this encounter
--- NOTE | 2025-02-25 12:52 | HO.ANESPROP2 ---
Documented by User: Dana Brooks NP 02/25/25 12:57 HPI - Anesthesia Eval Consult details Narrative: 74yo M for Laser Ablation Prostate w/Green Light, Prostate Needle Biopsy [place] neurosurg for pituitary adenoma s/p transsphenoidal resection 07/2024. Uneventful recovery per 01/2025 office visit visit. Stable for f/u visit and MRI in 1 year PMFSH Active Problems Active Problems: All Active Problems BPH w urinary obs/LUTS (Acute) Complicated urinary tract infection (Acute) Elevated PSA (Acute) Past Medical History Medical History Syncope and collapse BPH (benign prostatic hyperplasia) Hyperlipidemia HTN (hypertension) Pituitary macroadenoma Surgical History Surgical History Hx of rotator cuff surgery Hx of shoulder surgery H/O colonoscopy Hx of appendectomy Status post transsphenoidal pituitary resection (~2024) Social History Social History Advance Directives: No Advance Directives Information Provided: Yes Meds Allergies Allergy/AdvReac Type Severity Reaction Status Date / Time No Known Allergies Allergy Verified 12/23/24 13:15 Home Medications ?Medication ?Instructions ?Recorded ?Confirmed ?Last Taken ?Type amlodipine 10 mg tablet 10 mg PO DAILY 02/26/25 02/26/25 Unknown History multivitamin 1 tab PO DAILY 02/26/25 02/26/25 Unknown History sennosides 8.6 mg-docusate sodium 1 tab PO BEDTIME 02/26/25 02/26/25 Unknown History 50 mg tablet (Stimulant Laxative Plus) Exam Narrative Narrative: Brain MRI 12/2024 IMPRESSION: Decreased residual pituitary macroadenoma with decreased mass effect upon the optic nerves/chiasm. Assessment and Plan Assessment Anesthesia Assessment: Chart Reviewed Documented by User: Theodora Bettencourt MD 03/02/25 11:41 [facility] Past Medical History Medical History Syncope and collapse BPH (benign prostatic hyperplasia) Hyperlipidemia HTN (hypertension) Pituitary macroadenoma Family History Family history of problems with anesthesia: No Surgical History Surgical History Hx of rotator cuff surgery Hx of shoulder surgery H/O colonoscopy Hx of appendectomy Status post transsphenoidal pituitary resection (~2024) History of Problems with Anesthesia: No Social History Social History Advance Directives: No Advance Directives Information Provided: Yes Meds Allergies Allergy/AdvReac Type Severity Reaction Status Date / Time No Known Allergies Allergy Verified 12/23/24 13:15 Home Medications ?Medication ?Instructions ?Recorded ?Confirmed ?Last Taken ?Type amlodipine 10 mg tablet 10 mg PO DAILY 02/26/25 02/26/25 Unknown History multivitamin 1 tab PO DAILY 02/26/25 02/26/25 Unknown History sennosides 8.6 mg-docusate sodium 1 tab PO BEDTIME 02/26/25 02/26/25 Unknown History 50 mg tablet (Stimulant Laxative Plus) Exam Airway Mallampati Class: II TM Dist: >3cm Neck ROM: Full Heart: rrr Lungs: cta Assessment and Plan Assessment Anesthesia Assessment: Anesthesia Plan Discussed Final Anesthetic Review Family History of Problems with Anesthesia: No History of Problems with Anesthesia: No NPO: Yes ASA Class: III Final Preanesthetic Review: No Changes in Pt Med Stat, Meds/Allgs Chart Reviewed, Consent Obtained/Reviewed and Anes Risks/Benef Reviewed Patient Risk: Intermediate Procedure Risk: Low Anesthetic Plan Anesthetic Plan: GA and Agree w/ Assess. and Plan Disposition: Standard PACU
[2025-03-02] VITALS (7 sets, daily range): BP systolic 142–167; BP diastolic 76–95; PULSE 56–84; RESP 11–18; TEMP 36.1–36.6; O2SAT 99–100; BMI 24.4
--- NOTE | 2025-03-02 12:09 | MHC.SHP ---
Pre-Procedural Eval Section A - 24 Hr Update-Section A only Date of Service: 03/02/25 The patient is an INPATIENT: No Changes since office visit: No Cold of Flu in the past 2 weeks, No New Medical Problems, No Changes in Medication and No Patient answered all questions The patient has been examined within 24 hours of the surgical procedure. The History & Physical has been completed within 30 days and I have reviewed it.: No Section B - Complete if H&P > 30 days Chief Complaint: Benign prostatic hyperplasia with lower urinary Details of Present Illness: Elevated PSA and large prostate with prior UTI Relevant Family History (Specify if Yes): No Relevant Social History: None Present Medications: see Short Stay Collaborative assessment Medical History: No relevant PMH History of Previous Operations: No relevant previous surgery Allergies: Allergies Allergy/AdvReac Type Severity Reaction Status Date / Time No Known Allergies Allergy Verified 03/02/25 11:44 Review of Systems Sugical H&P ROS: Negative: Constitution, Cardiovascular, Respiratory, Neurological, Psychiatric, Hem-Onc, Allergic/Immunologic, Gastrointestinal, Genitourinary, Musculoskeletal, Integumentary, Endocrine and Eyes/Ears/Nose/Throat Exam Surgical H&P Exam: Normal: HEENT, Normal: Heart, Normal: Lungs, Normal: Extremities, Normal: Abdomen, Normal: Skin and Normal: Neurological Plan Diagnosis/Plan: Unchanged (Transrectal ultrasound with prostate biopsy, GreenLight laser prostate) I have reviewed the history and physical and performed a pertinent physical examination on my patient. No changes have occurred unless specified. Time Spent With Patient Time: Total time managing care of this patient today ____ minutes.
[2025-03-02] MEDS: Lactated Ringers 1,000 ML 100 ML IVCONT (12:19)
--- NOTE | 2025-03-02 14:33 | P.OP_ITS ---
Operative Note Operative Note Date of Service: 03/02/25 Narrative: PreOperative Diagnosis: 1 Elevated PSA 2 recurrent UTI 3 Bladder outlet obstruction Post Operative Diagnosis: see above Procedure: 1. transrectal ultrasound measurement of prostatek 2. transrectal ultrasound-guided prostate biopsy 12 core 3. GreenLight Laser Enucleation of the prostate CPT 66775 - modifier 22 100% longer than typical total lasering time 56 minutes versus 30 minutes Surgeon: Dr Andres Farfan Anesthesia: General History of bladder outlet obstruction. Treated with alpha-jesse and other medications. Had recurrent urinary tract infection. Ultrasound had shown extremely large prostate. Also with PSA 17. Risks and benefits have been discussed. Focus was placed on development of retrograde ejaculation which is a normal part of this procedure. Published revision rates are approximately 30-50% at 8-10 years following the procedure. Procedure: After informed consent was verified the patient was brought to the operating room and placed in a supine position. Anesthesia was administered per protocol. Patient was placed in modified dorsal lithotomy position. Safety pause time-out was confirmed. Antibiotics have been given. JAYRO was performed to dilate rectal sphincter Iodine 10cc with 60 cc gel was placed per rectum to reduce infection risk using a catheter tip syringe. 8 Hz Gin rectal end-fire ultrasound probe was placed transrectally without difficulty. The prostate was visualized. Seminal vesicles were normal. Prostate margins were clearly demarcated. Bladder was seen superiorly. No cystic structures were noted No calcifications were noted at the surgical margin The prostate was otherwise heterogenous in nature - large BPH swirls The prostate was measured in 3 dimensions Prostatic Width: 8.0 cm Prostatic Height: 8.3 cm Urethral Length: 8.9 cm Total volume equals : 300 ml An ultrasound-guided pudendal nerve block was performed using a 22 gauge spinal needle in the sagittal plane. 4 cc of 1% lidocaine placed at the junction of each seminal vesicle and 2 cc placed at the apex of the prostate. A 12 core biopsy was performed with 6 cores each side using an 18 gauge prostate biopsy gun. Two cores each were taken at the prostate apex, mid and base on each side. Cores were spaced between lateral and medial aspects. Each core was examined as placed on specimen foam as part of principal quality engineer to ensure a minimum 1 cm of length and minimal discontinuity. Following the prostate biopsy the patient was then prepped and draped in sterile fashion. A Twenty-four [place] laser cystoscope was inserted per urethra. No abnormalities were found of the anterior and bulbar urethra. The prostatic urethra shows trilobar hypertrophy. The bladder was examined and both ureteric orifices were seen in their normal positions away from the area of interest. Bladder trabeculation grade group 2. 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 A GreenLight laser with attached pressure bag Normal Saline cooling irrigation was used. At initial setting of 80 flores incisions were made at the 5 and 7 o'clock position. The incisions were taken down from the bladder neck down to the area just proximal of the veru. These were gradually deepened in order to define the lateral aspects of the median lobe area and separate the lateral lobe areas from the median lobe.. The deep boundary of enucleation was defined by the prostate surgical capsule. Once clearly defined the grooves were extended in the lateral directions in order to create a deep groove and begin to undermined the lateral lobe areas.. The median lobe was then ablated and enucleated tissue released into the bladder with the laser power increased to 120 W. Step 1 involved splitting the median lobe into 2 halves vertically through the center. Each half was then approached from the lateral aspect performing ablation and enucleation exchanging between lateral and medial aspects. The left side was cleared first followed by the right side. Due to the size of the prostate in the length of the prostatic urethra remnant tissue had been left in the apex area that was then addressed in the same fashion. The clearance of the median lobe took 100% longer than typical total lasering time was approximately 25 minutes. Once the median lobe area had been cleared, attention was directed to the lateral lobes. Starting with the patient's left lateral lobe. First the 05:00 o'clock groove was further developed. This was moved in the lateral direction to undermine the tissue on the lateral side running from the bladder neck to the prostate apex. The ureteric orifice was used to guide incisions. The laser fiber was placed at the 1 o'clock position and a secondary groove was developed down to the level of prostatic capsule. The creation of a second deep groove defined a segment of intervening tissue similar to a slice of orange. At the apex of the prostate the laser was used to vertically link the two grooves releasing the intervening tissue and creating a segment of tissue. This tissue was then removed with a combination of enucleation and ablation working from the apex toward the bladder neck. A similar procedure was repeated on the patient's right-hand side. The only differences being the position of the lateral groove at the 7 o'clock position and the secondary groove at the 11 o'clock position, Otherwise the procedure was developed in a mirror fashion. Laser power level 140 w After the majority of tissue had been debulked remnant tissue was ablated with the side fire laser and the curve of the prostate followed up each side wall clearly defining the anterior remnant strip that remained between the 11 and 1 o'clock positions. The clearance of the median lobes took 100% longer than typical total lasering time was approximately 45 minutes At completion debris and pieces of prostate were removed from the bladder with irrigation. Both ureteric orifices were reviewed again in shown to be patent in away from any areas of energy damage. Fluid was released from the prostate and inflow was ceased in order to evaluate the prostatic fossa for bleeding. The apical area was reviewed and any stray mucosal ooze was controlled. A 22 Citizen [place] 30 cc balloon Cardenas catheter was placed into the bladder using a flexible stylet. Clear efflux was obtained upon irrigation with a Mark piston syringe. 70 cc was placed in the balloon and gentle traction was placed. A snap was used to hold tension on the catheter to control bleeding during patient moved and transported. A drainage bag was placed. A belladonna and opiate suppository was placed in order to assist in postprocedure pain management. Once transportation is complete to the PACU the snap will be removed. The patient tolerated the procedure well, he was extubated in the operating and transferred in a stable condition to the recovery area. Total Power 439 kJ Lasing time 56:09 Pathology: - Twelve core prostate biopsy - Prostate tissue Drains: Cardenas catheter
== END 2025-03-02 16:24 | disposition home or self-care (01) ==
PROVIDERS: Visit Provider Urology
PROC: (CPT 52648; principal; 2025-03-02 13:10)
PROC: (CPT 55700; 2025-03-02 13:10)
DX: N40.1 Benign prostatic hyperplasia with lower urinary tract symptoms (principal); N13.8 Other obstructive and reflux uropathy; R97.20 Elevated prostate specific antigen [PSA]; N39.0 Urinary tract infection, site not specified; I10 Essential (primary) hypertension; E78.5 Hyperlipidemia, unspecified; R55 Syncope and collapse; D35.2 Benign neoplasm of pituitary gland; Z98.890 Other specified postprocedural states
CPT/HCPCS: 52649; 55700; 76942; 88305; 88344; J0131; J1100; J1171; J1956; J2003; J2151; J2405; J2704

== ENCOUNTER → 2025-03-02 11:05 | Outpatient (BNV) | payer MEDICARE, OTHER, SELFPAY | PROVIDERS: Visit Provider Urology | DX: R97.20 Elevated prostate specific antigen [PSA] (principal); N39.0 Urinary tract infection, site not specified | CPT/HCPCS: 52649; 76872; 76942 ==

== ENCOUNTER → 2025-03-04 09:24 | Outpatient (BNVA) | payer MEDICARE, OTHER, SELFPAY | PROVIDERS: PCP Internal Medicine; Visit Provider Urology | DX: N40.1 Benign prostatic hyperplasia with lower urinary tract symptoms (principal); N13.8 Other obstructive and reflux uropathy | CPT/HCPCS: 51700; 51798 ==